=== PATIENT | female | born 1995 | race Caucasian/White ===

== ENCOUNTER 2023-09-26 18:47 | Emergency (ER) | payer MEDICAID, SELFPAY ==
[2023-09-26 18:54] VITALS: BP 142/105; PULSE 98; RESP 16; TEMP 36.5; O2SAT 99; BMI 36.1
--- NOTE | 2023-09-26 19:07 | ED.GENADUL1 ---
HPI - General Adult General Chief complaint: Skin/Abscess/Foreign Body Stated complaint: RASH Time Seen by Provider: 09/26/23 18:49 Source: patient Mode of arrival: walk-in Limitations: no limitations History of Present Illness HPI narrative: patient is a 28-year-old female who presents to the emergency department for a rash under the bilateral breasts, groin and in her stomach folds. She states the rash is itchy and irritated. She believes she may have a piece infection. Rash has been present for several days. There has been no drainage. no medications taken prior to arrival. She is not concerned for . Related Data Previous Rx's Medication Instructions Recorded hydroxyzine HCl 25 mg tablet 25 mg PO Q6H PRN itching #20 tabs 09/26/23 nystatin-triamcinolone 100,000 1 applic topical BID #60 grams 09/26/23 unit/g-0.1 % topical cream Allergies Allergy/AdvReac Type Severity Reaction Status Date / Time No Known Drug Allergies Allergy Verified 09/26/23 18:58 Review of Systems ROS Constitutional Denies: fever or chills Ears, nose, mouth, and throat Denies: throat pain Cardiovascular Denies: chest pain Respiratory Denies: shortness of breath Gastrointestinal Denies: abdominal pain, nausea or vomiting Musculoskeletal Denies: back pain Integumentary/Breast Reports: rash and itching Hematologic/Lymphatic Denies: easy bruising Allergic/Immunologic Denies: hives PFSH [facility] Social History Smoking status: Never smoker Exam Narrative Exam Narrative: Gen.: Awake, alert, in no distress Head: Normocephalic, atraumatic ENT: Moist mucous membranes Respiratory: No respiratory distress Extremities: Moves extremities equally Psych: Normal mood and affect Neuro: No focal neuro deficit Skin: Warm, dry, intact; faintly erythematous rash noted under the bilateral breasts and in the fold of the stomach as well as the bilateral groin. No open wounds or drainage. No red streaking. No petechiae or purpura. No mucous membrane involvement. Constitutional Vital Signs, click to edit/add: Last Vital Signs Temp 97.7 F 09/26/23 18:54 Pulse 98 H 09/26/23 18:54 Resp 16 09/26/23 18:54 BP 142/105 H 09/26/23 18:54 Pulse Ox 99 09/26/23 18:54 O2 Del Method Room Air 09/26/23 18:54 Course Vital Signs Vital signs: Vital Signs Temperature 97.7 F 09/26/23 18:54 Pulse Rate 98 H 09/26/23 18:54 Respiratory Rate 16 09/26/23 18:54 Blood Pressure 142/105 H 09/26/23 18:54 Pulse Oximetry 99 09/26/23 18:54 Oxygen Delivery Method Room Air 09/26/23 18:54 Temperature 97.7 F 09/26/23 18:54 Pulse Rate 98 H 09/26/23 18:54 Respiratory Rate 16 09/26/23 18:54 Blood Pressure 142/105 H 09/26/23 18:54 Pulse Oximetry 99 09/26/23 18:54 Oxygen Delivery Method Room Air 09/26/23 18:54 Medical Decision Making MDM Narrative Medical decision making narrative: patient treated with hydroxyzine for itching and Mycolog for suspected skin yeast infection. no evidence of secondary cellulitis or wound infection at this time. Follow-up with PCP and return to the Emergency Room if symptoms change or worsen Medical Records Medical records reviewed: Yes I reviewed the patient's medical records Discharge Plan Discharge Chief Complaint: Skin/Abscess/Foreign Body Clinical Impression: Tinea, Skin rash Patient Disposition: Home, Self-Care Time of Disposition Decision: 19:05 Condition: Good Prescriptions / Home Meds: New nystatin-triamcinolone 100,000-0.1 unit/g-% cream 1 applic topical BID Qty: 60 0RF hydroxyzine HCl 25 mg tablet 25 mg PO Q6H PRN (Reason: itching) Qty: 20 0RF Instructions: Acute Rash (ED), Skin Yeast Infection (ED) Stand Alone Forms: Portal Instructions Referrals: Physician,Non-Staff, MD [Primary Care Provider] - 1 week Discharge Date/Time: 09/26/23 19:22
== END 2023-09-26 19:22 | disposition home or self-care (01) ==
PROVIDERS: Emergency Provider Internal Medicine
DX: B35.9 Dermatophytosis, unspecified (principal); R21 Rash and other nonspecific skin eruption
CPT/HCPCS: 99283

== ENCOUNTER 2024-01-24 17:56 | Emergency (ER) | payer MEDICAID, SELFPAY ==
[2024-01-24 18:01] VITALS: BP 169/99; PULSE 96; RESP 12; TEMP 36.6; O2SAT 99; BMI 37.4
--- NOTE | 2024-01-24 18:09 | US_ITS ---
[address] [address] Patient Name: LINA BAHENA MRN: [id number] date: 1995 Sex: F Assigned Patient Location: ER Current Patient Location: Accession/Order Number: [id number] Exam Date: 01/24/2024 18:40 Report Date: 01/24/2024 20:54 At the request of: JLUIS RUIZ Procedure: US OB transvaginal US PELVIS: OB LESS THAN 14 WEEKS HISTORY: G 3 P 2 AB 0 28 year old female presents for US evaluation. Cramping for 3 days unsure of LMP positive test last week was on control pills TECHNIQUE: Multiple sonographic images are performed of the pelvis using grayscale, spectral and color Doppler with both transabdominal and transvaginal probes. COMPARISON: None. FINDINGS: Cervix: Closed. 3.9 cm. Gestational Sac: Present in endometrium. 1.5 cm, 5 weeks, 6 days. Gestational sac size and shape are within normal limits for the estimated gestational age. Amniotic fluid: Within normal limits for gestational age. Placenta: Due to early gestational age, the placenta cannot be adequately seen on this exam. Yolk Sac: Visualized. 2.4 mm Pole: Visualized. 0.39 cm 6 weeks 1 day CRL: 0.43 cm, 6 weeks, 1 days. Heart Rate: 107 bpm. Subchorionic Bleed: None. Maternal: Ovaries: Right ovary: Measures 3.5 x 2.0 x 2.5 cm. Left ovary: Measures 4.0 x 1.3 x 2.2 cm. Free fluid: None. US/US OB transvaginal IMPRESSION: 1. Viable Cassidy fetus IUP 2. AUA Estimated Gestational Age by US: 6 weeks 0 days by ultrasound. 0 weeks 3 days 3. Estimated due date by AUA: September 18, 2024. Electronically authenticated by: EMELY CLAUDIO Date: 01/24/2024 20:54
[2024-01-24 18:46] LABS: Basophils Absolute Auto 0.1 10^3/uL (0.0-0.1); Eosinophils Absolute Auto 0.2 10^3/uL (0.0-0.7); Eosinophils Percent Auto 1.9 % (0.9-7.0); Hematocrit 41.3 % (36.0-48.0); Hemoglobin 13.6 g/dL (12.0-16.0); Immature Granulocytes Abs Auto 0.04 10^3/uL (0.00-0.03); Immature Granulocytes Pct Auto 0.4 % (0.0-0.5); Lymphocytes Absolute Auto 2.8 10^3/uL (1.2-3.8); Lymphocytes Percent Auto 27.1 % (20.5-60.0); Mean Corpuscular HGB Conc 32.9 g/dL (29.9-35.2); Mean Corpuscular Volume 85.2 fL (81.0-99.0); Mean Platelet Volume 9.3 fL (9.5-13.5); Monocytes Absolute Auto 0.9 10^3/uL (0.3-0.8); Monocytes Percent Auto 8.4 % (1.7-12.0); Neutrophils Absolute Auto 6.4 10^3/uL (1.4-6.5); Neutrophils Percent Auto 61.2 % (43.0-75.0); Platelet Count 284 10^3/uL (150-450); Red Blood Count 4.85 10^6/uL (4.20-5.40); Red Cell Distribution Width 13.2 % (11.0-15.0); White Blood Count 10.5 10^3/uL (4.0-11.0)
[2024-01-24 19:21] LABS: HCG Quantitative 18528 mIU/mL
--- NOTE | 2024-01-24 20:45 | ED.PREGNANC1 ---
HPI - General Chief complaint: Vaginal Bleeding Stated complaint: VAGINAL BLEEDING Time Seen by Provider: 01/24/24 18:08 Source: patient Mode of arrival: walk-in Limitations: no limitations History of Present Illness HPI Narrative: Patient is a 28-year-old who presents to the emergency department for evaluation of brownish bloody discharge and cramping for the last several days. She states yesterday she developed mild spotting and cramping. No fevers or vomiting. She does not know how far along she may be, she states she found out she was 2 weeks ago by test which she has a history of irregular periods. She had no similar issues with her previous pregnancies. No medications taken prior to arrival. Related Data Previous Rx's Medication Instructions Recorded metoclopramide HCl 10 mg tablet 10 mg PO Q6H PRN nausea and 01/24/24 (Reglan) vomiting #12 tabs Allergies Allergy/AdvReac Type Severity Reaction Status Date / Time No Known Drug Allergies Allergy Verified 01/24/24 18:00 Review of Systems ROS Constitutional Denies: fever or chills Ears, nose, mouth, and throat Denies: throat pain or nasal congestion Respiratory Denies: shortness of breath Gastrointestinal Denies: nausea or vomiting Musculoskeletal Denies: back pain Integumentary/Breast Denies: rash Neurological Denies: headache Hematologic/Lymphatic Denies: easy bruising or easy bleeding PFSH PFSH Social History Smoking status: Never smoker Exam Narrative Exam Narrative: Gen.: Awake, alert, in no distress Head: Normocephalic, atraumatic ENT: Moist mucous membranes Respiratory: No respiratory distress Gastrointestinal: Abdomen is soft, nondistended and nontender to palpation Extremities: Moves extremities equally Psych: Normal mood and affect Neuro: No focal neuro deficit Skin: Warm, dry, intact Constitutional Vital Signs, click to edit/add: Last Vital Signs Temp 98 F 01/24/24 18:01 Pulse 96 H 01/24/24 18:01 Resp 12 01/24/24 18:01 BP 169/99 H 01/24/24 18:01 Pulse Ox 99 01/24/24 18:01 O2 Del Method Room Air 01/24/24 18:01 Course Vital Signs Vital signs: Vital Signs Temperature 98 F 01/24/24 18:01 Pulse Rate 96 H 01/24/24 18:01 Respiratory Rate 12 01/24/24 18:01 Blood Pressure 169/99 H 01/24/24 18:01 Pulse Oximetry 99 01/24/24 18:01 Oxygen Delivery Method Room Air 01/24/24 18:01 Temperature 98 F 01/24/24 18:01 Pulse Rate 96 H 01/24/24 18:01 Respiratory Rate 12 01/24/24 18:01 Blood Pressure 169/99 H 01/24/24 18:01 Pulse Oximetry 99 01/24/24 18:01 Oxygen Delivery Method Room Air 01/24/24 18:01 MDM - OB/Uterine Contractions MDM Narrative Medical decision making narrative: Patient with abdomen soft and benign, O+ blood type and quantitative hCG level 18,000. She was sent for ultrasound which shows an intrauterine gestation at 6 weeks with heart rate, no evidence of ectopic. Patient discharged home with instructions for pelvic rest to follow-up with [facility] office for repeat testing. Return to the ER if symptoms change or worsen. She was given a prescription of Reglan as needed for nausea, Tylenol as needed for pain. Medical Records Attestation: I reviewed the patient's medical records. Lab Data Attestation: I reviewed the patient's lab results. Labs: Lab Results 01/24/24 Range/Units 18:33 WBC 10.5 (4.0-11.0) 10^3/uL RBC 4.85 (4.20-5.40) 10^6/uL Hgb 13.6 (12.0-16.0) g/dL Hct 41.3 (36.0-48.0) % MCV 85.2 (81.0-99.0) fL MCH 28.0 (26.7-34.0) pg MCHC 32.9 (29.9-35.2) g/dL RDW 13.2 (11.0-15.0) % Plt Count 284 (150-450) 10^3/uL MPV 9.3 L (9.5-13.5) fL Neut % (Auto) 61.2 (43.0-75.0) % Lymph % (Auto) 27.1 (20.5-60.0) % [place] % (Auto) 8.4 (1.7-12.0) % Eos % (Auto) 1.9 (0.9-7.0) % Baso % (Auto) 1.0 (0.2-2.0) % Neut # (Auto) 6.4 (1.4-6.5) 10^3/uL Lymph # (Auto) 2.8 (1.2-3.8) 10^3/uL [place] # (Auto) 0.9 H (0.3-0.8) 10^3/uL Eos # (Auto) 0.2 (0.0-0.7) 10^3/uL Baso # (Auto) 0.1 (0.0-0.1) 10^3/uL Abs Immat Gran (auto) 0.04 H (0.00-0.03) 10^3/uL Imm/Tot Granulo (auto) 0.4 (0.0-0.5) % HCG, Quant 72396 mIU/mL Blood Type O Positive Imaging Data US - abdomen: Attestation: I have reviewed the pertinent imaging results. Radiologist's impression: ITS Impressions Transvaginal US 01/24/24 18:09 IMPRESSION: 1. Viable Cassidy fetus IUP 2. AUA Estimated Gestational Age by US: 6 weeks 0 days by ultrasound. 0 weeks 3 days 3. Estimated due date by AUA: September 18, 2024. Electronically authenticated by: EMELY CLAUDIO Date: 01/24/2024 20:54 Discharge Plan Discharge Chief Complaint: Vaginal Bleeding Clinical Impression: Threatened Patient Disposition: Home, Self-Care Time of Disposition Decision: 20:46 Condition: Good Prescriptions / Home Meds: New metoclopramide HCl [Reglan] 10 mg tablet 10 mg PO Q6H PRN (Reason: nausea and vomiting) Qty: 12 0RF Instructions: Threatened Miscarriage (ED) Referrals: Kentrell Sarabia DO [Physician] - 1 week MIREILLE RICHMOND [Primary Care Provider] - 1 week Discharge Date/Time: 01/24/24 20:56 Stand Alone Forms: Portal Instructions
== END 2024-01-24 20:56 | disposition home or self-care (01) ==
PROVIDERS: Physician Assistant; Emergency Provider Student in an Organized Health Care Education/Training Program; PCP Family Medicine
DX: O20.0 Threatened abortion (principal); Z3A.01 Less than 8 weeks gestation of pregnancy
CPT/HCPCS: 36415; 76817; 84702; 85025; 86900; 86901; 99285

== ENCOUNTER 2024-02-09 14:06 | Outpatient (OUT) | payer MEDICAID, SELFPAY ==
--- NOTE | 2024-02-09 14:08 | US_ITS ---
[address] [address] Patient Name: LINA BAHENA MRN: [id number] date: 1995 Sex: F Assigned Patient Location: [facility] Current Patient Location: [facility] Accession/Order Number: [id number] Exam Date: 02/09/2024 14:08 Report Date: 02/09/2024 14:57 At the request of: JAMIL CHAUHAN Procedure: US OB transvaginal EXAMINATION: US OB transvaginal HISTORY: MISSED MENSES COMPARISON: FINDINGS: GESTATIONAL SAC: Present and normal appearing. YOLK SAC: Present and normal appearing. POLE: Present and normal appearing. CARDIAC: Present. UTERUS: Normal size and appearance. OVARIES: Right: Normal. Left: Normal. CERVIX: 4.2 cm in length and closed. CUL-DE-SAC: Normal. OTHER: None. AGE BY LMP: Unknown LMP SANTIAGO BY LMP: AGE BY US CRL: 8 weeks 1 day SANTIAGO BY US CRL: 09/19/2024 US/US OB transvaginal IMPRESSION: 1. Single live intrauterine 8 weeks 1 day by today's ultrasound. Electronically authenticated by: ALEA MENDOZA Date: 02/09/2024 14:57
--- OUTSIDE RECORDS SUMMARY | 2024-02-09 14:13 | XMS_ITS | CCD ---
Author Organization [facility] Care Team Providers Care Medical Illustrator Name Role Phone JAMIL CHAUHAN Attending Unavailable Encounters Encounter Date Encounter Type Care Provider Facility Start: 01-31-2024 End: 01-31-2024 ambulatory JAMIL CHAUHAN Not Available Payers Date Payer Category Payer Medicaid [id number] 1995 Unknown [id number] [id number] Summary Purpose Family History No Family History Records Found Advance Directives No Advanced Directives Records Found Additional Source Comments INFORMATION SOURCE (unrecogn ized section and content) DATE CREATED AUTHOR 02/01/2024 [facility] EPIC FOR RECORDS PERTAINING TO PATIENTS WHO ARE OR HAVE BEEN ENROLLED IN A CHEMICAL DEPENDENCY/SUBSTANCEABUSE PROGRAM, SOME INFORMATION MAY BE OMITTED. This clinical summary was aggregated from multiple sources. Caution should be exercised in using it in the provision of clinical care. This summary normalizes information from multiple sources, and as a consequence, information in this document may materially change the coding, format and clinical context of patient data. In addition, data may be omitted in some cases. CLINICAL DECISIONS SHOULD BE BASED ON THE PRIMARY CLINICAL RECORDS. [employer] provides no warranty or guarantee of the accuracy or completeness of information in this document.
== END 2024-02-09 14:07 | disposition home or self-care (01) ==
LOC: NOMS 14:07
PROVIDERS: PCP Family Medicine; Visit Provider Obstetrics & Gynecology
DX: Z34.91 Encounter for supervision of normal pregnancy, unspecified, first trimester (principal)
CPT/HCPCS: 76817

== ENCOUNTER 2024-02-24 09:18 | Outpatient (OUT) | payer MEDICAID, SELFPAY ==
--- OUTSIDE RECORDS SUMMARY | 2024-02-24 09:40 | XMS_ITS | CCD ---
Author Organization [facility] Care Team Providers Care Operating Room Registered Nurse Name Role Phone JAMIL CHAUHAN Attending Unavailable Encounters Encounter Date Encounter Type Care Provider Facility Start: 02-09-2024 End: 02-09-2024 ambulatory JAMIL TIEN Not Available Start: 01-31-2024 End: 01-31-2024 ambulatory JAMIL TIEN Not Available Payers Date Payer Category Payer Medicaid [id number] 1995 Unknown [id number] 2.16.84 [id number] 1995 Unknown [id number] 2.16.84 [id number] Summary Purpose Family History No Family History Records Found Advance Directives No Advanced Directives Records Found Additional Source Comments INFORMATION SOURCE (unrecogn ized section and content) DATE CREATED AUTHOR 02/11/2024 [facility] EPIC FOR RECORDS PERTAINING TO PATIENTS [...] BE BASED ON THE PRIMARY CLINICAL RECORDS. [employer] provides no warranty or guarantee of the accuracy or completeness of information in this document.
[2024-02-24 10:03] LABS: Basophils Absolute Auto 0.1 10^3/uL (0.0-0.1); Basophils Percent Auto 0.8 % (0.2-2.0); Eosinophils Absolute Auto 0.1 10^3/uL (0.0-0.7); Eosinophils Percent Auto 1.2 % (0.9-7.0); Hematocrit 40.3 % (36.0-48.0); Hemoglobin 13.5 g/dL (12.0-16.0); Immature Granulocytes Abs Auto 0.03 10^3/uL (0.00-0.03); Immature Granulocytes Pct Auto 0.3 % (0.0-0.5); Lymphocytes Percent Auto 20.9 % (20.5-60.0); Mean Corpuscular HGB Conc 33.5 g/dL (29.9-35.2); Mean Corpuscular Hemoglobin 28.2 pg (26.7-34.0); Mean Corpuscular Volume 84.3 fL (81.0-99.0); Mean Platelet Volume 9.2 fL (9.5-13.5); Monocytes Absolute Auto 0.6 10^3/uL (0.3-0.8); Monocytes Percent Auto 6.8 % (1.7-12.0); Neutrophils Absolute Auto 6.6 10^3/uL (1.4-6.5); Platelet Count 302 10^3/uL (150-450); Red Blood Count 4.78 10^6/uL (4.20-5.40); Red Cell Distribution Width 12.8 % (11.0-15.0); White Blood Count 9.5 10^3/uL (4.0-11.0)
[2024-02-24 12:08] LABS: Thyroid Stimulating Hormone 3.238 uIU/mL (0.358-3.740)
[2024-02-24 12:09] LABS: Estimated Average Glucose 103 mg/dL; Glycohemoglobin A1C 5.2 % (4.5-6.2)
[2024-02-25 06:09] LABS: HBsAg Screen Negative (Negative); HCV Ab Non Reactive (Non Reactive); HIV Ab/p24 Ag Screen Non Reactive (Non Reactive); Rubella Antibodies, IgG 1.28 index (Immune >0.99)
[2024-02-25 12:08] LABS: Rapid Plasma Reagin, Quant Non Reactive titer (NonRea<1:1)
== END 2024-02-24 09:19 | disposition home or self-care (01) ==
LOC: LAB 09:23
PROVIDERS: PCP Family Medicine; Visit Provider Obstetrics & Gynecology
DX: N92.6 Irregular menstruation, unspecified (principal); Z36.0 Encounter for antenatal screening for chromosomal anomalies
CPT/HCPCS: 36415; 83036; 84443; 85025; 86592; 86762; 86803; 86850; 86900; 86901; 87086; 87340; 87389

== ENCOUNTER 2024-04-24 08:35 | Outpatient (OUT) | payer MEDICAID, SELFPAY ==
--- OUTSIDE RECORDS SUMMARY | 2024-04-24 08:53 | XMS_ITS | CCD ---
Author Organization [facility] Care Team Providers Care Grounding Engineer Name Role Phone JAMIL CHAUHAN Attending Unavailable JAMIL CHAUHAN Attending Unavailable LORRIE RG Attending Unavailable Encounters Encounter Date Encounter Type Care Provider Facility Start: 04-04-2024 End: 04-04-2024 ambulatory LORRIE RG Not Available Start: 03-15-2024 End: 03-15-2024 ambulatory JAMIL CHAUHAN Not Available Start: 02-09-2024 End: 02-09-2024 ambulatory JAMIL TIEN Not Available Start: 01-31-2024 End: 01-31-2024 ambulatory JAMIL TIEN Not Available Payers Date Payer Category Payer Medicaid [id number] 1995 Unknown [id number] 2.16.84 [id number] 1995 Unknown [id number] 2.16.84 [id number] 1995 Unknown [id number] 2.16.84 [id number] 1995 Unknown [id number] 2.16.84 [id number] Summary Purpose Family History No Family History Records Found Advance Directives No Advanced Directives Records Found Additional Source Comments INFORMATION SOURCE (unrecogn ized section and content) DATE CREATED AUTHOR 04/06/2024 [facility] EPIC FOR RECORDS PERTAINING TO PATIENTS [...] BE BASED ON THE PRIMARY CLINICAL RECORDS. [facility] [employer] [facility]. provides no warranty or guarantee of the accuracy or completeness of information in this document.
[2024-04-26 02:08] LABS: AFP Value 47.6 ng/mL (.); Gestat. Age Based On Ultrasound (.); Insulin Dep Diabetes No (.); Maternal Age At EDD 27.9 yr (.); OSBR Risk 1 IN 6301 (.); Results Report (.)
== END 2024-04-24 08:36 | disposition home or self-care (01) ==
LOC: LAB 08:36
PROVIDERS: PCP Family Medicine; Visit Provider Obstetrics & Gynecology
DX: Z34.92 Encounter for supervision of normal pregnancy, unspecified, second trimester (principal)
CPT/HCPCS: 36415; 82105

== ENCOUNTER 2024-05-02 13:29 | Outpatient (OUT) | payer MEDICAID, SELFPAY ==
--- NOTE | 2024-05-02 13:35 | US_ITS ---
[address] [address] Patient Name: LINA BAHENA MRN: [id number] date: 1995 Sex: F Assigned Patient Location: [facility] Current Patient Location: [facility] Accession/Order Number: [id number] Exam Date: 05/02/2024 13:36 Report Date: 05/02/2024 14:38 At the request of: LORRIE RG Procedure: US OB anatomy EXAMINATION: US OB anatomy, US OB cervical length HISTORY: ANATOMY COMPARISON: No relevant comparison available. TECHNIQUE: Transabdominal sonographic examination was performed for obstetrical and evaluation. FINDINGS: Number: 1 Heart Rate: 155.0 bpm H.B. /min Amniotic Fluid Volume: Subjectively normal position: Cephalic presentation, longitudinal lie Placental Location: Posterior. The placental edge is 0.6 cm from the internal os Cervix Length: 5.4 cm , closed Normal anatomy: Lateral ventricles, cerebellum, posterior fossa, nose, lips, orbits, four-chamber heart, RVOT, LVOT, diaphragm, stomach, kidneys, abdominal insertion, bladder, umbilical arteries, three-vessel cord, spine, extremities BIOMETRY: BPD: 4.5 cm 19 weeks 5 days , 38% HC: 17.1 cm 19 weeks 5 days, 29% AC: 17.3 cm 22 weeks 2 days, 96% FL: 3.2 cm 20 weeks 0 days, 41% EFW:391.5 grams; 14 ounces, 93% FL/AC: 18.5 FL/BPD: 70.5 HC/AC: 1.0 GESTATIONAL AGE: Age by EDC: 20 weeks 0 days SANTIAGO by EDC: 09/19/2024 Age by current US: 20 weeks 3 days SANTIAGO by current US: 09/16/2024 US/US OB anatomy IMPRESSION: Marginal placenta previa Otherwise normal anatomy scan *Reference: [facility] Practice Guideline for the performance of Obstetric Ultrasound Examinations, August 21, 2007. Electronically authenticated by: NIGHAT BOND Date: 05/02/2024 14:38
--- NOTE | 2024-05-02 13:35 | US_ITS ---
[address] [address] Patient Name: LINA BAHENA MRN: [id number] date: 1995 Sex: F Assigned Patient Location: [facility] Current Patient Location: [facility] Accession/Order Number: [id number] Exam Date: 05/02/2024 13:35 Report Date: 05/02/2024 14:38 At the request of: LORRIE RG Procedure: US OB cervical length EXAMINATION: US OB anatomy, US OB cervical length HISTORY: ANATOMY COMPARISON: No relevant comparison available. TECHNIQUE: Transabdominal sonographic examination was performed for obstetrical and evaluation. FINDINGS: Number: 1 Heart Rate: 155.0 bpm H.B. /min Amniotic Fluid Volume: Subjectively normal position: Cephalic presentation, longitudinal lie Placental Location: Posterior. The placental edge is 0.6 cm from the internal os Cervix Length: 5.4 cm , closed Normal anatomy: Lateral ventricles, cerebellum, posterior fossa, nose, lips, orbits, four-chamber heart, RVOT, LVOT, diaphragm, stomach, kidneys, abdominal insertion, bladder, umbilical arteries, three-vessel cord, spine, extremities BIOMETRY: BPD: 4.5 cm 19 weeks 5 days , 38% HC: 17.1 cm 19 weeks 5 days, 29% AC: 17.3 cm 22 weeks 2 days, 96% FL: 3.2 cm 20 weeks 0 days, 41% EFW:391.5 grams; 14 ounces, 93% FL/AC: 18.5 FL/BPD: 70.5 HC/AC: 1.0 GESTATIONAL AGE: Age by EDC: 20 weeks 0 days SANTIAGO by EDC: 09/19/2024 Age by current US: 20 weeks 3 days SANTIAGO by current US: 09/16/2024 US/US OB cervical length IMPRESSION: Marginal placenta previa Otherwise normal anatomy scan *Reference: [facility] Practice Guideline for the performance of Obstetric Ultrasound Examinations, August 21, 2007. Electronically authenticated by: NIGHAT BOND Date: 05/02/2024 14:38
== END 2024-05-02 13:30 | disposition home or self-care (01) ==
LOC: NOMS 13:33
PROVIDERS: PCP Family Medicine; Visit Provider Physician Assistant
DX: Z36.89 Encounter for other specified antenatal screening (principal); Z3A.20 20 weeks gestation of pregnancy; O44.22 Partial placenta previa NOS or without hemorrhage, second trimester
CPT/HCPCS: 76805; 76817

== ENCOUNTER 2024-05-30 07:59 | Outpatient (OUT) | payer MEDICAID, SELFPAY ==
--- NOTE | 2024-05-30 08:03 | US_ITS ---
[address] [address] Patient Name: LINA BAHENA MRN: [id number] date: 1995 Sex: F Assigned Patient Location: [facility] Current Patient Location: [facility] Accession/Order Number: [id number] Exam Date: 05/30/2024 08:04 Report Date: 05/30/2024 09:28 At the request of: JAMIL CHAUHAN Procedure: US OB cervical length EXAM: US OB placenta, US OB cervical length HISTORY: MARGINAL PLACENTA PREVIA COMPARISON: None. TECHNIQUE: Transabdominal FINDINGS: position: Breech presentation, longitudinal lie Placenta: Posterior. The placental edge is 4 cm from the internal os. No intraplacental or retroplacental echogenic abnormality Cervix: Closed, 3.9 cm US/US OB cervical length IMPRESSION: The placental edge is 4 cm from the internal os Closed cervix measuring 3.9 cm in length Electronically authenticated by: NIGHAT BOND Date: 05/30/2024 09:28
--- NOTE | 2024-05-30 08:03 | US_ITS ---
[place] [id number] Patient Name: LINA BAHENA MRN: [id number] date: 1995 Sex: F Assigned Patient Location: [facility] Current Patient Location: [facility] Accession/Order Number: [id number] Exam Date: 05/30/2024 08:04 Report Date: 05/30/2024 09:28 At the request of: JAMIL CHAUHAN Procedure: US OB placenta EXAM: US OB placenta, US OB cervical length HISTORY: MARGINAL PLACENTA PREVIA COMPARISON: None. TECHNIQUE: Transabdominal FINDINGS: position: Breech presentation, longitudinal lie Placenta: Posterior. The placental edge is 4 cm from the internal os. No intraplacental or retroplacental echogenic abnormality Cervix: Closed, 3.9 cm US/US OB placenta IMPRESSION: The placental edge is 4 cm from the internal os Closed cervix measuring 3.9 cm in length Electronically authenticated by: NIGHAT BOND Date: 05/30/2024 09:28
== END 2024-05-30 08:00 | disposition home or self-care (01) ==
LOC: NOMS 07:59
PROVIDERS: PCP Family Medicine; Visit Provider Obstetrics & Gynecology
DX: O44.20 Partial placenta previa NOS or without hemorrhage, unspecified trimester (principal); Z3A.00 Weeks of gestation of pregnancy not specified
CPT/HCPCS: 76815; 76817

== ENCOUNTER 2024-06-11 14:12 | Outpatient (OUT) | payer MEDICAID, SELFPAY ==
--- OUTSIDE RECORDS SUMMARY | 2024-06-11 14:33 | XMS_ITS | CCD ---
Author Organization [facility] Care Team Providers Care Interlocking Installer Name Role Phone JAMIL CHAUHAN Attending Unavailable TIEN, JAMIL Attending Unavailable ARCENIOLORRIE Attending Unavailable TIEN, JAMIL Attending Unavailable Encounters Encounter Date Encounter Type Care Provider Facility Start: 05-07-2024 End: 05-07-2024 ambulatory JAMIL TIEN Not Available Start: 04-04-2024 End: 04-04-2024 ambulatory LORRIE RG Not Available Start: 03-15-2024 End: 03-15-2024 ambulatory JAMIL TIEN Not Available Start: 02-09-2024 End: 02-09-2024 ambulatory JAMIL TIEN Not Available Start: 01-31-2024 End: 01-31-2024 ambulatory JAMIL TIEN Not Available Payers Date Payer Category Payer Medicaid [birth year] Unknown [id number] 2.16.84 [id number] 1995 Unknown [id number] 2.16.84 [id number] 1995 Unknown [id number] 2.16.84 [id number] 1995 Unknown [id number] 2.16.84 [id number] 1995 Unknown [id number] 2.16.84 [id number] Summary Purpose Family History No Family History Records Found Advance Directives No Advanced Directives Records Found Additional Source Comments INFORMATION SOURCE (unrecogn ized section and content) DATE CREATED AUTHOR 05/07/2024 [facility] dical Specialists EPIC FOR RECORDS PERTAINING TO PATIENTS [...] BE BASED ON THE PRIMARY CLINICAL RECORDS. [facility]. provides no warranty or guarantee of the accuracy or completeness of information in this document.
[2024-06-11 14:44] LABS: Basophils Absolute Auto 0.1 10^3/uL (0.0-0.1); Basophils Percent Auto 0.6 % (0.2-2.0); Eosinophils Absolute Auto 0.2 10^3/uL (0.0-0.7); Eosinophils Percent Auto 1.2 % (0.9-7.0); Hemoglobin 11.8 g/dL (12.0-16.0); Immature Granulocytes Abs Auto 0.09 10^3/uL (0.00-0.03); Immature Granulocytes Pct Auto 0.7 % (0.0-0.5); Lymphocytes Percent Auto 15.4 % (20.5-60.0); Mean Corpuscular HGB Conc 33.7 g/dL (29.9-35.2); Mean Corpuscular Hemoglobin 28.8 pg (26.7-34.0); Mean Corpuscular Volume 85.4 fL (81.0-99.0); Mean Platelet Volume 9.2 fL (9.5-13.5); Monocytes Percent Auto 7.8 % (1.7-12.0); Neutrophils Absolute Auto 9.4 10^3/uL (1.4-6.5); Neutrophils Percent Auto 74.3 % (43.0-75.0); Platelet Count 300 10^3/uL (150-450); Red Cell Distribution Width 13.2 % (11.0-15.0); White Blood Count 12.7 10^3/uL (4.0-11.0)
[2024-06-11 15:02] LABS: Alanine Aminotransferase 18 U/L (14-59); Albumin Globulin Ratio 0.6; Albumin Level 2.5 g/dL (3.4-5.0); Alkaline Phosphatase 88 U/L (46-116); Aspartate Amino Transferase 15 U/L (15-37); Bilirubin Direct 0.1 mg/dL (0.0-0.2); Bilirubin Total 0.4 mg/dL (0.2-1.0); Globulin 3.9 g/dL; Thyroid Stimulating Hormone 3.363 uIU/mL (0.358-3.740); Total Protein 6.4 g/dL (6.4-8.2)
[2024-06-12 05:07] LABS: HCV Antibody Non Reactive (Non Reactive)
[2024-06-13 16:10] LABS: Bile Acids 2.7 umol/L (0.0-10.0)
== END 2024-06-11 14:13 | disposition home or self-care (01) ==
LOC: LAB 14:14
PROVIDERS: PCP Family Medicine; Visit Provider Physician Assistant
DX: L29.9 Pruritus, unspecified (principal)
CPT/HCPCS: 36415; 80076; 82239; 84443; 85025; 86803

== ENCOUNTER 2024-06-12 12:53 | Outpatient (OUT) | payer MEDICAID, SELFPAY ==
[2024-06-12 09:03] LABS: Basophils Absolute Auto 0.1 10^3/uL (0.0-0.1); Basophils Percent Auto 0.6 % (0.2-2.0); Eosinophils Absolute Auto 0.2 10^3/uL (0.0-0.7); Eosinophils Percent Auto 1.4 % (0.9-7.0); Hemoglobin 11.7 g/dL (12.0-16.0); Immature Granulocytes Abs Auto 0.09 10^3/uL (0.00-0.03); Immature Granulocytes Pct Auto 0.9 % (0.0-0.5); Lymphocytes Absolute Auto 1.6 10^3/uL (1.2-3.8); Lymphocytes Percent Auto 15.1 % (20.5-60.0); Mean Corpuscular HGB Conc 33.4 g/dL (29.9-35.2); Mean Corpuscular Hemoglobin 28.6 pg (26.7-34.0); Mean Corpuscular Volume 85.6 fL (81.0-99.0); Mean Platelet Volume 9.3 fL (9.5-13.5); Monocytes Absolute Auto 0.6 10^3/uL (0.3-0.8); Monocytes Percent Auto 5.2 % (1.7-12.0); Neutrophils Absolute Auto 8.1 10^3/uL (1.4-6.5); Neutrophils Percent Auto 76.8 % (43.0-75.0); Platelet Count 279 10^3/uL (150-450); Red Blood Count 4.09 10^6/uL (4.20-5.40); Red Cell Distribution Width 13.1 % (11.0-15.0); White Blood Count 10.5 10^3/uL (4.0-11.0)
[2024-06-12 09:24] LABS: Glucose 1 Hour 140 mg/dL (<130)
== END 2024-06-12 12:54 | disposition home or self-care (01) ==
LOC: LAB 06-13 12:53
PROVIDERS: PCP Family Medicine; Visit Provider Physician Assistant
DX: Z13.1 Encounter for screening for diabetes mellitus (principal); Z3A.25 25 weeks gestation of pregnancy
CPT/HCPCS: 36415; 82950; 85025

== ENCOUNTER 2024-06-27 08:13 | Outpatient (OUT) | payer MEDICAID, SELFPAY ==
--- OUTSIDE RECORDS SUMMARY | 2024-06-27 08:16 | XMS_ITS | CCD ---
Author Organization [facility] Care Team Providers Care Gameroom Technician Name Role Phone TIEN, JAMIL Attending Unavailable TIEN, JAMIL Attending Unavailable ARCENIO, LORRIE Attending Unavailable TIEN, JAMIL Attending Unavailable ARCENIO, LORRIE Attending Unavailable Encounters Encounter Date Encounter Type Care Provider Facility Start: 06-11-2024 End: 06-11-2024 ambulatory LORRIE ARCENIO Not Available Start: 05-07-2024 End: 05-07-2024 ambulatory JAMIL TIEN Not Available Start: 04-04-2024 End: 04-04-2024 ambulatory LORRIE ARCENIO Not Available Start: 03-15-2024 End: 03-15-2024 ambulatory JAMIL TIEN Not Available Start: 02-09-2024 End: 02-09-2024 ambulatory JAMIL TIEN Not Available Start: 01-31-2024 End: 01-31-2024 ambulatory JAMIL TIEN Not Available Payers Date Payer Category Payer Medicaid [id number] 1995 Unknown [id number] 2..84 [id number] 1995 Unknown [id number] 2.16.84 [id number] 1995 Unknown [id number] 2.16.84 [id number] 1996 Unknown [id number] 2.16.84 [id number] 1996 Unknown [id number] 2.16.84 [id number] 1995 Unknown [id number] 2.16.84 [id number] Summary Purpose Family History No Family History Records Found Advance Directives No Advanced Directives Records Found Additional Source Comments INFORMATION SOURCE (unrecogn ized section and content) DATE CREATED AUTHOR 06/13/2024 [facility] EPIC FOR RECORDS PERTAINING [...] BE BASED ON THE PRIMARY CLINICAL RECORDS. [facility] [employer] provides no warranty or guarantee of the accuracy or completeness of information in this document.
[2024-06-27 09:01] LABS: Glucose Fasting 89 mg/dL (<95)
[2024-06-27 10:03] LABS: Glucose 1 Hour 171 mg/dL (<180)
[2024-06-27 10:59] LABS: Glucose 2 Hour 126 mg/dL (<155)
[2024-06-27 12:29] LABS: Glucose 3 Hour 101 mg/dL (<140)
== END 2024-06-27 08:14 | disposition home or self-care (01) ==
LOC: LAB 08:13
PROVIDERS: PCP Family Medicine; Visit Provider Physician Assistant
DX: R73.09 Other abnormal glucose (principal)
CPT/HCPCS: 36415; 82951; 82952

== ENCOUNTER 2024-07-03 07:54 | Outpatient (OUT) | payer MEDICAID, SELFPAY ==
--- NOTE | 2024-07-03 07:57 | US_ITS ---
[address] [address] Patient Name: LINA BAHENA MRN: [id number] date: 1995 Sex: F Assigned Patient Location: [facility] Current Patient Location: [facility] Accession/Order Number: [id number] Exam Date: 07/03/2024 07:57 Report Date: 07/03/2024 10:24 At the request of: JAMIL CHAUHAN Procedure: US OB growth EXAMINATION: US OB growth HISTORY: LARGE FOR GESTATIONAL AGE COMPARISON: No relevant comparison available. TECHNIQUE: Transabdominal sonographic examination was performed for obstetrical and evaluation. FINDINGS: Number: 1 Heart Rate: 146 bpm H.B. /min Amniotic Fluid Volume: 11.7 cm, largest fluid pocket 3.5 cm position: Cephalic presentation, longitudinal lie BIOMETRY: BPD: 7.16 cm; 28 weeks 5 days; 33.80 % HC: 26.23 cm; 28 weeks 4 days; 11.80 % AC: 25.01 cm; 29 weeks 2 days; 54.70 % FL: 5.45 cm; 28 weeks 6 days; 33.10 % EFW:1306.16 g; 41.30 %, 2 lbs. 14 oz. FL/AC: 21.79 FL/BPD: 76.12 HC/AC: 1.05 GESTATIONAL AGE: Age by EDC: 28 weeks 6 days SANTIAGO by EDC: 2024-09-19 Age by current US: 28 weeks 6 days SANTIAGO by current US: 2024-09-19 US/US OB growth IMPRESSION: Normal interval growth *Reference: [facility] Practice Guideline for the performance of Obstetric Ultrasound Examinations, August 21, 2007. Electronically authenticated by: NIGHAT BOND Date: 07/03/2024 10:24
--- OUTSIDE RECORDS SUMMARY | 2024-07-03 07:58 | XMS_ITS | CCD ---
Author Organization [facility] Care Team Providers Care Quiller Operator Name Role Phone TIEN, JAMIL Attending Unavailable TIEN, JAMIL Attending Unavailable ARCENIO, LORRIE Attending Unavailable TIEN, JAMIL Attending Unavailable ARCENIO, LORRIE Attending Unavailable ARCENOI, LORRIE Attending Unavailable Encounters Encounter Date Encounter Type Care Provider Facility Start: 06-28-2024 End: 06-28-2024 ambulatory LORRIE ARCENIO Not Available Start: 06-11-2024 End: 06-11-2024 ambulatory LORRIE ARCENIO Not Available Start: 05-07-2024 End: 05-07-2024 ambulatory JAMIL TIEN Not Available Start: 04-04-2024 End: 04-04-2024 ambulatory LORRIE ARCENIO Not Available Start: 03-15-2024 End: 03-15-2024 ambulatory JAMIL TIEN Not Available Start: 02-09-2024 End: 02-09-2024 ambulatory JAMIL TIEN Not Available Start: 01-31-2024 End: 01-31-2024 ambulatory JAMIL TIEN Not Available Payers Date Payer Category Payer Medicaid [id number] 1995 Unknown [id number] 2.16.84 0.1.011734.3.579.2.9 1996 Unknown [id number] 2.16.84 0.1.543108.3.579.2.9 1996 Unknown [id number] 2.16.84 0.1.355244.3.579.2.9 1996 Unknown [id number] 2.16.84 0.1.638512.3.579.2.1259 1996 Unknown [id number] 2.16.84 0.1.391890.3.579.2.9 1996 Unknown [id number] 2.16.84 0.1.011907.3.579.2.1259 1996 Unknown [id number] 2.16.84 0.1.004625.3.579.2.1259 Summary Purpose Family History No Family History Records Found Advance Directives No Advanced Directives Records Found Additional Source Comments INFORMATION SOURCE (unrecogn ized section and content) DATE CREATED AUTHOR 07/01/2024 [facility] Specialists [facility] FOR RECORDS PERTAINING TO PATIENTS WHO ARE [...] BE BASED ON THE PRIMARY CLINICAL RECORDS. [facility] [employer] [facility]. provides no warranty or guarantee of the accuracy or completeness of information in this document.
== END 2024-07-03 07:55 | disposition home or self-care (01) ==
LOC: NOMS 07:55
PROVIDERS: PCP Family Medicine; Visit Provider Obstetrics & Gynecology
DX: O36.62X0 Maternal care for excessive fetal growth, second trimester, not applicable or unspecified (principal); Z3A.28 28 weeks gestation of pregnancy
CPT/HCPCS: 76816

== ENCOUNTER 2024-07-19 10:55 | Outpatient (OUT) | payer MEDICAID, SELFPAY ==
[2024-07-19 11:12] LABS: Basophils Absolute Auto 0.1 10^3/uL (0.0-0.1); Basophils Percent Auto 0.7 % (0.2-2.0); Eosinophils Absolute Auto 0.1 10^3/uL (0.0-0.7); Eosinophils Percent Auto 1.1 % (0.9-7.0); Hematocrit 33.8 % (36.0-48.0); Hemoglobin 11.3 g/dL (12.0-16.0); Immature Granulocytes Abs Auto 0.11 10^3/uL (0.00-0.03); Lymphocytes Absolute Auto 1.9 10^3/uL (1.2-3.8); Lymphocytes Percent Auto 17.5 % (20.5-60.0); Mean Corpuscular HGB Conc 33.4 g/dL (29.9-35.2); Mean Corpuscular Hemoglobin 28.1 pg (26.7-34.0); Mean Corpuscular Volume 84.1 fL (81.0-99.0); Mean Platelet Volume 9.3 fL (9.5-13.5); Monocytes Absolute Auto 0.9 10^3/uL (0.3-0.8); Monocytes Percent Auto 8.7 % (1.7-12.0); Neutrophils Absolute Auto 7.6 10^3/uL (1.4-6.5); Platelet Count 272 10^3/uL (150-450); Red Blood Count 4.02 10^6/uL (4.20-5.40); Red Cell Distribution Width 14.2 % (11.0-15.0); White Blood Count 10.7 10^3/uL (4.0-11.0)
--- OUTSIDE RECORDS SUMMARY | 2024-07-19 11:20 | XMS_ITS | CCD ---
Author Organization [facility] Care Team Providers Care Camp Counselor Name Role Phone TIEN, JAMIL Attending Unavailable TIEN, JAMIL Attending Unavailable ARCENIO, LORRIE Attending Unavailable TIEN, JAMIL Attending Unavailable ARCENIO, LORRIE Attending Unavailable ARCENIO, LORRIE Attending Unavailable TIEN, JAMIL Attending Unavailable Encounters Encounter Date Encounter Type Care Provider Facility Start: 07-03-2024 End: 07-03-2024 ambulatory JAMIL TIEN Not Available Start: 06-28-2024 End: 06-28-2024 ambulatory LORRIE ARCENIO [...] Available Payers Date Payer Category Payer Medicaid [id number] 1995 Unknown [id number] 2.16.84 0.1.290216.3.579.2.1258 1996 Unknown [id number] 2.16.84 0.1.270971.3.579.2.1258 1996 Unknown [id number] 2.16.84 0.1.939420.3.579.2.9 1996 Unknown [id number] 2.16.84 0.1.268747.3.579.2.9 1996 Unknown [id number] 2.16.84 0.1.883638.3.579.2.1259 1996 Unknown [id number] 2.16.84 0.1.130234.3.579.2.1259 1996 Unknown [id number] 2.16.84 0.1.978433.3.579.2.1259 1996 Unknown [id number] 2.16.84 0.1.526527.3.579.2.1259 Summary Purpose Family History No Family History Records Found Advance Directives No Advanced Directives Records Found Additional Source Comments INFORMATION SOURCE (unrecogn ized section and content) DATE CREATED AUTHOR 07/04/2024 [facility] Specialists EPIC FOR RECORDS PERTAINING TO [...] BE BASED ON THE PRIMARY CLINICAL RECORDS. [facility] [employer] provides no warranty or guarantee of the accuracy or completeness of information in this document.
[2024-07-19 11:31] LABS: Total Protein Urine Random 7.4 mg/dL (<=11.9)
[2024-07-19 11:45] LABS: Alanine Aminotransferase 19 U/L (14-59); Aspartate Amino Transferase 16 U/L (15-37); Estimated GFR (African America >60 (>=60); Estimated GFR (Non-African Ame >60 (>=60); Lactate Dehydrogenase 171 U/L (81-234); Uric Acid 4.3 mg/dL (2.6-6.0)
[2024-07-19 12:00] LABS: INR 0.95; Partial Thromboplastin Time 26.5 sec (22.3-36.2); Prothrombin Time 10.1 sec (9.0-11.6)
[2024-07-19 13:16] LABS: Total Protein 24 Hour Urine 177.6 mg/24hr (<=149.1); Total Volume 24 Hour Urine 2400 mL/24hr
== END 2024-07-19 10:56 | disposition home or self-care (01) ==
LOC: LAB 10:58
PROVIDERS: Visit Provider Physician Assistant
DX: O13.9 Gestational [pregnancy-induced] hypertension without significant proteinuria, unspecified trimester (principal)
CPT/HCPCS: 36415; 81050; 82565; 83615; 84156; 84450; 84460; 84550; 85025; 85610; 85730

== ENCOUNTER 2024-07-20 10:30 | Observation (INO) | payer MEDICAID, SELFPAY ==
--- OUTSIDE RECORDS SUMMARY | 2024-07-20 10:43 | XMS_ITS | CCD ---
Author Organization [facility] Care Team Providers Care Veneer Clipper Name Role Phone TIEN, JAMIL Attending Unavailable TIEN, JAMIL Attending Unavailable ARCENIO, LORRIE Attending Unavailable TIEN, JAMIL Attending Unavailable ARCENIO, LORRIE Attending Unavailable ARCENIO, LORRIE Attending Unavailable TIEN, JAMIL Attending Unavailable ARCENIO, LORRIE Attending Unavailable Encounters Encounter Date Encounter Type Care Provider Facility Start: 07-17-2024 End: 07-17-2024 ambulatory LORRIE ARCENIO Not Available Start: 07-03-2024 End: 07-03-2024 ambulatory JAMIL TIEN [...] Not Available Start: 01-31-2024 End: 01-31-2024 ambulatory JAIML TIEN Not Available Payers Date Payer Category Payer Medicaid [id number] 1995 Unknown [id number] 2.16.84 0.1.693133.3.579.2.9 1996 Unknown [id number] 2.16.84 0.1.602917.3.579.2.1259 1996 Unknown [id number] 2.16.84 0.1.298996.3.579.2.1259 1996 Unknown [id number] 2.16.84 0.1.155018.3.579.2.1259 1996 Unknown [id number] 2.16.84 0.1.791604.3.579.2.1258 1996 Unknown [id number] 2.16.84 0.1.366208.3.579.2.9 1996 Unknown [id number] 2.16.84 0.1.718473.3.579.2.1258 1996 Unknown [id number] 2.16.84 0.1.199720.3.579.2.9 1996 Unknown [id number] 2.16.84 0.1.697155.3.579.2.1259 Summary Purpose Family History No Family History Records Found Advance Directives No Advanced Directives Records Found Additional Source Comments INFORMATION SOURCE (unrecogn ized section and content) DATE CREATED AUTHOR 07/19/2024 [facility] Specialists [facility] FOR RECORDS PERTAINING TO PATIENTS WHO [...] BE BASED ON THE PRIMARY CLINICAL RECORDS. [facility] [employer] [facility]. provides no warranty or guarantee of the accuracy or completeness of information in this document.
[2024-07-20 10:48] VITALS: BP 142/87; PULSE 106
[2024-07-20 11:06] VITALS: BP 134/81; PULSE 96
[2024-07-20 11:20] VITALS: BP 132/81; PULSE 86
[2024-07-20 11:20] LABS: Bilirubin Urine NEGATIVE (NEGATIVE); Blood Urine NEGATIVE (NEGATIVE); Clarity Urine CLEAR (CLEAR); Color Urine DK. YELLOW (YELLOW); Glucose Urine UA 500 mg/dL (NEGATIVE); Ketones Urine TRACE mg/dL (NEGATIVE); Leukocyte Esterase Urine NEGATIVE (NEGATIVE); Nitrite Urine NEGATIVE (NEGATIVE); Protein Urine TRACE mg/dL (NEG/TRACE); Specific Gravity Urine >=1.030 (1.005-1.025)
[2024-07-20 11:23] LABS: Urine Microscopic Indicated NO
[2024-07-20 11:37] VITALS: BP 131/73; PULSE 87
[2024-07-20] MEDS: ACETAMINOPHEN 500 MG TABLET 1000 MG PO (12:01)
[2024-07-20 13:45] LABS: Bilirubin Urine NEGATIVE (NEGATIVE); Blood Urine NEGATIVE (NEGATIVE); Clarity Urine CLEAR (CLEAR); Color Urine LT. YELLOW (YELLOW); Glucose Urine UA NEGATIVE (NEGATIVE); Ketones Urine NEGATIVE (NEGATIVE); Leukocyte Esterase Urine NEGATIVE (NEGATIVE); Nitrite Urine NEGATIVE (NEGATIVE); Protein Urine NEGATIVE (NEG/TRACE); Specific Gravity Urine <=1.005 (1.005-1.025); Urobilinogen Urine 0.2 EU/dL (0.2-1.0)
[2024-07-20 13:53] LABS: Urine Microscopic Indicated NO
== END 2024-07-20 14:05 | disposition home or self-care (01) ==
PROVIDERS: Admitting Provider Obstetrics & Gynecology; Visit Provider Obstetrics & Gynecology
DX: O26.893 Other specified pregnancy related conditions, third trimester (principal); M54.50 Low back pain, unspecified; R10.9 Unspecified abdominal pain; Z3A.31 31 weeks gestation of pregnancy
CPT/HCPCS: 81003; G0378; G0379

== ENCOUNTER 2024-07-24 09:34 | Observation (INO) | payer MEDICAID, SELFPAY ==
[2024-07-24 10:36] LABS: Amnisure NEGATIVE (NEGATIVE); Internal Control Within Normal Limits
[2024-07-24 10:40] VITALS: BP 138/83; PULSE 117
--- NOTE | 2024-07-24 11:16 | US_ITS ---
[address] [address] Patient Name: LINA BAHENA MRN: [id number] date: 1995 Sex: F Assigned Patient Location: [facility] Current Patient Location: Accession/Order Number: [id number] Exam Date: 07/24/2024 11:20 Report Date: 07/24/2024 11:55 At the request of: JAMIL CHAUHAN Procedure: US OB BPP w non-stress EXAMINATION: US OB BPP w non-stress HISTORY:hx pih, hypothyroid, r/o rom COMPARISON: Ultrasound OB growth 07/03/2024 TECHNIQUE: Ultrasound biophysical profile was performed in the radiology department. BREATHING MOVEMENTS: 2 GROSS BODY MOVEMENTS: 2 TONE: 2 QUALITATIVE AMNIOTIC FLUID VOLUME: 2 PRESENTATION: CEPHALIC HEART RATE: 175.32 bpm AMNIOTIC FLUID VOLUME: 12.81 cm GESTATIONAL AGE: 31 weeks 6 days US/US OB BPP w non-stress IMPRESSION: Total biophysical profile score: 8 Electronically authenticated by: ALEA MENDOZA Date: 07/24/2024 11:55
== END 2024-07-24 11:51 | disposition home or self-care (01) ==
PROVIDERS: Admitting Provider Obstetrics & Gynecology; Visit Provider Obstetrics & Gynecology
DX: Z03.71 Encounter for suspected problem with amniotic cavity and membrane ruled out (principal); Z3A.31 31 weeks gestation of pregnancy
CPT/HCPCS: 59025; 76818; 84112; G0378; G0379

== ENCOUNTER 2024-08-01 07:03 | Outpatient (OUT) | payer MEDICAID, SELFPAY ==
--- OUTSIDE RECORDS SUMMARY | 2024-08-01 07:04 | XMS_ITS | CCD ---
Author Organization [facility] Care Team Providers Care Multilith Operator Name Role Phone TIEN, JAMIL Attending [...] Available Payers Date Payer Category Payer Medicaid [id number] 1995 Unknown [id number] 2.16.84 0.1.823999.3.579.2.9 1996 Unknown [id number] 2.16.84 0.1.237135.3.579.2.1259 1996 Unknown [id number] 2.16.84 0.1.744274.3.579.2.1259 1996 Unknown [id number] 2.16.84 0.1.910332.3.579.2.1259 1996 Unknown [id number] 2.16.84 0.1.667699.3.579.2.1258 1996 Unknown [id number] 2.16.84 0.1.644721.3.579.2.9 1996 Unknown [id number] 2.16.84 0.1.709818.3.579.2.1258 1996 Unknown [id number] 2.16.84 0.1.807126.3.579.2.9 1996 Unknown [id number] 2.16.84 0.1.852370.3.579.2.1259 Summary Purpose Family History No Family History Records Found Advance Directives No Advanced Directives Records Found Additional Source Comments INFORMATION SOURCE (unrecogn ized section and content) DATE CREATED AUTHOR 07/19/2024 [facility] Specialists [facility] FOR RECORDS PERTAINING TO PATIENTS WHO ARE [...] BE BASED ON THE PRIMARY CLINICAL RECORDS. [facility] [employer] [facility]. provides no warranty or guarantee of the accuracy or completeness of information in this document.
--- NOTE | 2024-08-01 09:41 | US_ITS ---
[address] [address] Patient Name: LINA BAHENA MRN: [id number] date: 1995 Sex: F Assigned Patient Location: [facility] Current Patient Location: [facility] Accession/Order Number: [id number] Exam Date: 08/01/2024 09:42 Report Date: 08/01/2024 10:12 At the request of: JAMIL CHAUHAN Procedure: US OB BPP w non-stress EXAMINATION: US OB BPP w non-stress HISTORY: Hypothyroidism COMPARISON: No relevant comparison available. TECHNIQUE: Ultrasound biophysical profile was performed in the radiology department. non-reactive stress testing was performed by nursing staff in the birthing center. FINDINGS: BREATHING MOVEMENTS: 2 GROSS BODY MOVEMENTS: 2 TONE: 2 QUALITATIVE AMNIOTIC FLUID VOLUME: 2 PRESENTATION: CEPHALIC HEART RATE: 148.35 bpm AMNIOTIC FLUID VOLUME: 10.5 cm GESTATIONAL AGE: 33 weeks 0 days US/US OB BPP w non-stress IMPRESSION: Total biophysical profile score: 8 Electronically authenticated by: NIGHAT BOND Date: 08/01/2024 10:12
[2024-08-01 10:03] VITALS: BP 135/84; PULSE 106
== END 2024-08-01 10:30 | disposition home or self-care (01) ==
LOC: US 07:03 → FBC 09:36
PROVIDERS: Visit Provider Obstetrics & Gynecology
DX: O09.299 Supervision of pregnancy with other poor reproductive or obstetric history, unspecified trimester (principal); E03.9 Hypothyroidism, unspecified; Z3A.33 33 weeks gestation of pregnancy
CPT/HCPCS: 76818

== ENCOUNTER 2024-08-02 11:08 | Outpatient (OUT) | payer MEDICAID, SELFPAY ==
--- NOTE | 2024-08-02 11:08 | US_ITS ---
[address] [address] Patient Name: LINA BAHENA MRN: [id number] date: 1995 Sex: F Assigned Patient Location: [facility] Current Patient Location: [facility] Accession/Order Number: [id number] Exam Date: 08/02/2024 11:08 Report Date: 08/02/2024 12:13 At the request of: LORRIE RG Procedure: US OB growth EXAMINATION: US OB growth HISTORY: LARGE FOR GESTATIONAL AGE COMPARISON: 07/03/2024 TECHNIQUE: Transabdominal sonographic examination was performed for obstetrical and evaluation. FINDINGS: Number: 1 Heart Rate: 160 bpm H.B. /min Amniotic Fluid Volume: 9.4 cm, largest fluid pocket 3.1 cm position: Cephalic presentation, longitudinal lie BIOMETRY: BPD: 8.13 cm; 32 weeks 5 days; 29.90 % HC: 30.83 cm; 34 weeks 3 days; 45.40 % AC: 31.58 cm; 35 weeks 4 days; 96.80 % FL: 6.50 cm; 33 weeks 4 days; 49 % EFW:2364.35 g; 83.20 %, 5 lbs. 7 oz. FL/AC: 20.58 FL/BPD: 79.95 HC/AC: 0.98 GESTATIONAL AGE: Age by EDC: 33 weeks 1 day SANTIAGO by EDC: 2024-09-19 Age by current US: 34 weeks 1 day SANTIAGO by current US: 2024-09-12 US/US OB growth IMPRESSION: Normal interval growth *Reference: [facility] Practice Guideline for the performance of Obstetric Ultrasound Examinations, August 21, 2007. Electronically authenticated by: NIGHAT BOND Date: 08/02/2024 12:13
--- OUTSIDE RECORDS SUMMARY | 2024-08-02 11:22 | XMS_ITS | CCD ---
Author Organization [facility] Care Team Providers Care Armor Reconnaissance Specialist Name Role Phone TIEN, JAMIL Attending Unavailable [...] Available Start: 03-15-2024 End: 03-15-2024 ambulatory JAMIL TINE Not Available Start: 02-09-2024 End: 02-09-2024 ambulatory JAMIL TIEN Not Available Start: 01-31-2024 End: 01-31-2024 ambulatory JAMIL TIEN Not Available Payers Date Payer Category Payer Medicaid [id number] 1995 Unknown [id number] 2.16.84 0.1.299546.3.579.2.9 1996 Unknown [id number] 2.16.84 0.1.717817.3.579.2.1259 1996 Unknown [id number] 2.16.84 0.1.375646.3.579.2.1259 1996 Unknown [id number] 2.16.84 0.1.876071.3.579.2.1259 1996 Unknown [id number] 2.16.84 0.1.115914.3.579.2.1258 1996 Unknown [id number] 2.16.84 0.1.996093.3.579.2.9 1996 Unknown [id number] 2.16.84 0.1.563501.3.579.2.1258 1996 Unknown [id number] 2.16.84 0.1.881987.3.579.2.9 1996 Unknown [id number] 2.16.84 0.1.500072.3.579.2.1259 Summary Purpose Family History No Family History Records Found Advance Directives No Advanced Directives Records Found Additional Source Comments INFORMATION SOURCE (unrecogn ized section and content) DATE CREATED AUTHOR 07/19/2024 [facility] Specialists [facility] FOR RECORDS PERTAINING TO PATIENTS WHO [...] BE BASED ON THE PRIMARY CLINICAL RECORDS. [facility] [employer] [facility]. provides no warranty or guarantee of the accuracy or completeness of information in this document.
== END 2024-08-02 11:09 | disposition home or self-care (01) ==
LOC: NOMS 11:09
PROVIDERS: Visit Provider Physician Assistant
DX: O36.63X0 Maternal care for excessive fetal growth, third trimester, not applicable or unspecified (principal); Z3A.34 34 weeks gestation of pregnancy
CPT/HCPCS: 76816

== ENCOUNTER 2024-08-04 07:29 | Outpatient (OUT) | payer MEDICAID, SELFPAY ==
--- OUTSIDE RECORDS SUMMARY | 2024-08-04 07:31 | XMS_ITS | CCD ---
Author Organization [facility] Care Team Providers Care Rehabilitation Services Counselor Name Role Phone TIEN, JAMIL Attending [...] Available Payers Date Payer Category Payer Medicaid [id number] 1995 Unknown [id number] 2.16.84 0.1.591343.3.579.2.9 1996 Unknown [id number] 2.16.84 0.1.243540.3.579.2.1259 1996 Unknown [id number] 2.16.84 0.1.191128.3.579.2.1259 1996 Unknown [id number] 2.16.84 0.1.565847.3.579.2.1259 1996 Unknown [id number] 2.16.84 0.1.000160.3.579.2.1258 1996 Unknown [id number] 2.16.84 0.1.346029.3.579.2.9 1996 Unknown [id number] 2.16.84 0.1.770426.3.579.2.1258 1996 Unknown [id number] 2.16.84 0.1.212337.3.579.2.9 1996 Unknown [id number] 2.16.84 0.1.269975.3.579.2.1259 Summary Purpose Family History No Family History Records Found Advance Directives No Advanced Directives Records Found Additional Source Comments INFORMATION SOURCE (unrecogn ized section and content) DATE CREATED AUTHOR 07/19/2024 [facility] Specialists [facility] FOR RECORDS PERTAINING TO PATIENTS WHO [...] BE BASED ON THE PRIMARY CLINICAL RECORDS. [facility] [email or web address] [facility]. provides no warranty or guarantee of the accuracy or completeness of information in this document.
[2024-08-04 09:59] VITALS: BP 123/86; PULSE 109
== END 2024-08-04 10:23 | disposition home or self-care (01) ==
LOC: FBCO 07:30 → FBC 09:55
PROVIDERS: Visit Provider Obstetrics & Gynecology
DX: O99.283 Endocrine, nutritional and metabolic diseases complicating pregnancy, third trimester (principal); Z3A.33 33 weeks gestation of pregnancy
CPT/HCPCS: 59025

== ENCOUNTER 2024-08-07 10:28 | Observation (INO) | payer MEDICAID, SELFPAY ==
--- OUTSIDE RECORDS SUMMARY | 2024-08-07 10:43 | XMS_ITS | CCD ---
Author Organization [facility] Care Team Providers Care Sde Name Role Phone TIEN, JAMIL Attending Unavailable TIEN, JAMIL Attending Unavailable ARCENIO, LORRIE Attending Unavailable TIEN, JAMIL Attending Unavailable ARCENIO, LORRIE Attending Unavailable ARCENIO, LORRIE Attending Unavailable TIEN, JAMIL Attending Unavailable ARCENIO, LORRIE Attending Unavailable TIEN, JAMIL Attending Unavailable Encounters Encounter Date Encounter Type Care Provider Facility Start: 08-02-2024 End: 08-02-2024 ambulatory JAMIL TIEN Not Available Start: 07-17-2024 End: 07-17-2024 ambulatory LORRIE ARCENIO [...] Available Payers Date Payer Category Payer Medicaid [id number] 1995 Unknown [id number] 2.16.84 0.1.918055.3.579.2.1259 1996 Unknown [id number] 2.16.84 0.1.793787.3.579.2.1259 1996 Unknown [id number] 2.16.84 0.1.382416.3.579.2.1259 1996 Unknown [id number] 2.16.84 0.1.826782.3.579.2.1259 1996 Unknown [id number] 2.16.84 0.1.709657.3.579.2.1259 1996 Unknown [id number] 2.16.84 0.1.721762.3.579.2.9 1996 Unknown [id number] 2.16.84 0.1.825673.3.579.2.9 1996 Unknown [id number] 2.16.84 0.1.029335.3.579.2.1259 1996 Unknown [id number] 2.16.84 0.1.027606.3.579.2.1259 1996 Unknown [id number] 2.16.84 0.1.651091.3.579.2.1259 Summary Purpose Family History No Family History Records Found Advance Directives No Advanced Directives Records Found Additional Source Comments INFORMATION SOURCE (unrecogn ized section and content) DATE CREATED AUTHOR 08/04/2024 [facility] Specialists EPIC FOR RECORDS PERTAINING TO [...] BE BASED ON THE PRIMARY CLINICAL RECORDS. [facility] [employer] [facility]. provides no warranty or guarantee of the accuracy or completeness of information in this document.
[2024-08-07 10:45] VITALS: BP 136/90; PULSE 112
[2024-08-07 11:02] LABS: Bilirubin Urine SMALL (NEGATIVE); Blood Urine NEGATIVE (NEGATIVE); Color Urine DK. YELLOW (YELLOW); Glucose Urine UA 250 mg/dL (NEGATIVE); Ketones Urine 15 mg/dL (NEGATIVE); Leukocyte Esterase Urine TRACE (NEGATIVE); Nitrite Urine NEGATIVE (NEGATIVE); Protein Urine 30 mg/dL (NEG/TRACE); Specific Gravity Urine >=1.030 (1.005-1.025)
[2024-08-07 11:09] LABS: Clarity Urine SLIGHTLY CLOUDY (CLEAR); Urine Microscopic Indicated YES
[2024-08-07 11:10] LABS: Bacteria Urine SMALL #/HPF (NONE SEEN); Mucus Urine SMALL (NONE SEEN); RBC Urine NONE SEEN #/HPF (0-2); Squamous Epithelial Cell Urine MODERATE #/LPF (NONE/RARE); Urine Culture Indicated YES
--- NOTE | 2024-08-07 12:54 | US_ITS ---
[address] [address] Patient Name: LINA BAHENA MRN: [id number] date: 1995 Sex: F Assigned Patient Location: [facility] Current Patient Location: [facility] Accession/Order Number: [id number] Exam Date: 08/07/2024 12:56 Report Date: 08/07/2024 13:35 At the request of: JAMIL CHAUHAN Procedure: US OB BPP w non-stress EXAMINATION: US OB BPP w non-stress HISTORY: pelvic pressure, HX of Pre-E COMPARISON: No relevant comparison available. TECHNIQUE: Ultrasound biophysical profile was performed in the radiology department. non-reactive stress testing was performed by nursing staff in the birthing center. FINDINGS: BREATHING MOVEMENTS: 2 GROSS BODY MOVEMENTS: 2 TONE: 2 QUALITATIVE AMNIOTIC FLUID VOLUME: 2 PRESENTATION: CEPHALIC HEART RATE: 158.82 bpm AMNIOTIC FLUID VOLUME: 13.1 cm GESTATIONAL AGE: 33 weeks 6 days US/US OB BPP w non-stress IMPRESSION: Total biophysical profile score: 8 Electronically authenticated by: NIGHAT BOND Date: 08/07/2024 13:35
== END 2024-08-07 13:25 | disposition home or self-care (01) ==
LOC: FBC 10:29
PROVIDERS: Admitting Provider Obstetrics & Gynecology; Visit Provider Obstetrics & Gynecology
DX: O26.893 Other specified pregnancy related conditions, third trimester (principal); R10.2 Pelvic and perineal pain; R11.2 Nausea with vomiting, unspecified; R10.9 Unspecified abdominal pain; M25.559 Pain in unspecified hip; Z3A.33 33 weeks gestation of pregnancy
CPT/HCPCS: 59025; 76818; 81001; 87086; G0378; G0379

== ENCOUNTER 2024-08-15 07:06 | Outpatient (OUT) | payer MEDICAID, SELFPAY ==
--- OUTSIDE RECORDS SUMMARY | 2024-08-15 07:09 | XMS_ITS | CCD ---
Author Organization [facility] Care Team Providers Care Molder Trimmer Name Role Phone TIEN, JAMIL Attending Unavailable TIEN, JAMIL Attending Unavailable ARCENIO, LORRIE Attending Unavailable TIEN, JAMIL Attending Unavailable ARCENIO, LORRIE Attending Unavailable ARCENIO, LORRIE Attending Unavailable TIEN, JAMIL Attending Unavailable ARCENIO, LORRIE Attending Unavailable TIEN, JAMIL Attending Unavailable TIEN, JAMIL Attending Unavailable Encounters Encounter Date Encounter Type Care Provider Facility Start: 08-08-2024 End: 08-08-2024 ambulatory JAMIL TIEN Not Available Start: 08-02-2024 End: 08-02-2024 ambulatory JAMIL TIEN [...] Available Payers Date Payer Category Payer Medicaid [id number] 1995 Unknown [id number] 2.16.84 0.1.950613.3.579.2.1259 1996 Unknown [id number] 2.16.84 0.1.415638.3.579.2.9 1996 Unknown [id number] 2.16.84 0.1.456831.3.579.2.1258 1996 Unknown [id number] 2.16.84 0.1.540399.3.579.2.1258 1996 Unknown [id number] 2.16.84 0.1.262759.3.579.2.1258 1996 Unknown [id number] 2.16.84 0.1.035449.3.579.2.9 1996 Unknown [id number] 2.16.84 0.1.491640.3.579.2.1258 1996 Unknown [id number] 2.16.84 0.1.534271.3.579.2.9 1996 Unknown [id number] 2.16.84 0.1.053334.3.579.2.9 1996 Unknown [id number] 2.16.84 0.1.172027.3.579.2.9 1996 Unknown [id number] 2.16.84 0.1.538601.3.579.2.1259 Summary Purpose Family History No Family History Records Found Advance Directives No Advanced Directives Records Found Additional Source Comments INFORMATION SOURCE (unrecogn ized section and content) DATE CREATED AUTHOR 08/10/2024 [facility] Specialists [facility] FOR RECORDS PERTAINING TO PATIENTS WHO [...] BE BASED ON THE PRIMARY CLINICAL RECORDS. [facility] [employer] [facility]. provides no warranty or guarantee of the accuracy or completeness of information in this document.
--- NOTE | 2024-08-15 09:24 | US_ITS ---
[address] [address] Patient Name: LINA BAHENA MRN: [id number] date: 1995 Sex: F Assigned Patient Location: [facility] Current Patient Location: [facility] Accession/Order Number: [id number] Exam Date: 08/15/2024 09:30 Report Date: 08/15/2024 10:11 At the request of: JAMIL CHAUHAN Procedure: US OB BPP w non-stress EXAMINATION: US OB BPP w non-stress HISTORY:Hypothyroidism E03.9 COMPARISON: Ultrasound OB biophysical 08/07/2024 TECHNIQUE: Ultrasound biophysical profile was performed in the radiology department. BREATHING MOVEMENTS: 2 GROSS BODY MOVEMENTS: 2 TONE: 2 QUALITATIVE AMNIOTIC FLUID VOLUME: 2 PRESENTATION: CEPHALIC HEART RATE: 150.84 bpm AMNIOTIC FLUID VOLUME: 10.07 cm GESTATIONAL AGE: 35 weeks 0 days US/US OB BPP w non-stress IMPRESSION: Total biophysical profile score: 8 Electronically authenticated by: ALEA MENDOZA Date: 08/15/2024 10:11
[2024-08-15 09:53] VITALS: BP 136/86; PULSE 90
[2024-08-15 10:26] VITALS: BP 135/87; PULSE 96
== END 2024-08-15 10:29 | disposition home or self-care (01) ==
LOC: US 07:07 → FBC 09:24
PROVIDERS: Visit Provider Obstetrics & Gynecology
DX: E03.9 Hypothyroidism, unspecified (principal); O99.283 Endocrine, nutritional and metabolic diseases complicating pregnancy, third trimester; Z3A.35 35 weeks gestation of pregnancy
CPT/HCPCS: 76818

== ENCOUNTER 2024-08-16 07:39 | Outpatient (RCR) | payer MEDICAID, SELFPAY ==
[2024-08-15] MEDS: BETAMETHASONE ACE/BETAMETHASONE SOD PHOS 30 MG/5 ML 12 MG IM (09:03)
[2024-08-15 09:45] VITALS: BP 118/73; PULSE 100; TEMP 36.1; O2SAT 98
[2024-08-16] MEDS: BETAMETHASONE ACE/BETAMETHASONE SOD PHOS 30 MG/5 ML 12 MG IM (08:53)
[2024-08-16 08:59] VITALS: BP 138/91; PULSE 101; TEMP 36.6; O2SAT 92
--- NOTE | 2024-08-16 09:00 | PC.NURSE ---
0846: Pt. to [facility] amb. accompanied by mother for second Celestone injection. Seated in recliner. Denies adverse reaction to first injection. VSS. 0853: Medicated with Celestone 12mg IM to left deltoid. Trace bleeding to site, Bandaid applied. Pt. tolerated without c/o. 0855: Pt. d/c'd amb. to home.
== END 2024-08-20 23:59 | disposition home or self-care (01) ==
LOC: INF 07:39
PROVIDERS: Visit Provider Obstetrics & Gynecology
DX: O09.219 Supervision of pregnancy with history of pre-term labor, unspecified trimester (principal); Z3A.00 Weeks of gestation of pregnancy not specified
CPT/HCPCS: 96372; J0702

== ENCOUNTER 2024-08-18 06:57 | Outpatient (OUT) | payer MEDICAID, SELFPAY ==
--- OUTSIDE RECORDS SUMMARY | 2024-08-18 07:00 | XMS_ITS | CCD ---
Author Organization [facility] Care Team Providers Care Spin Table Operator Name Role Phone TIEN, JAMIL Attending [...] Available Payers Date Payer Category Payer Medicaid [id number] 1995 Unknown [id number] 2.16.84 0.1.105553.3.579.2.1259 1996 Unknown [id number] 2.16.84 0.1.656219.3.579.2.9 1996 Unknown [id number] 2.16.84 0.1.014419.3.579.2.1258 1996 Unknown [id number] 2.16.84 0.1.834014.3.579.2.1258 1996 Unknown [id number] 2.16.84 0.1.502611.3.579.2.1258 1996 Unknown [id number] 2.16.84 0.1.632084.3.579.2.9 1996 Unknown [id number] 2.16.84 0.1.928631.3.579.2.1258 1996 Unknown [id number] 2.16.84 0.1.001858.3.579.2.9 1996 Unknown [id number] 2.16.84 0.1.316827.3.579.2.9 1996 Unknown [id number] 2.16.84 0.1.612256.3.579.2.9 1996 Unknown [id number] 2.16.84 0.1.880249.3.579.2.1259 Summary Purpose Family History No Family History Records Found Advance Directives No Advanced Directives Records Found Additional Source Comments INFORMATION SOURCE (unrecogn ized section and content) DATE CREATED AUTHOR 08/10/2024 [facility] Specialists [facility] FOR RECORDS PERTAINING TO PATIENTS WHO ARE [...] PRIMARY CLINICAL RECORDS. [facility] [employer] [facility]. provides no warranty or guarantee of the accuracy or completeness of information in this document.
[2024-08-18 10:08] VITALS: BP 146/80; PULSE 90; TEMP 35.8; TEMP 36
== END 2024-08-18 10:45 | disposition home or self-care (01) ==
LOC: FBCO 06:57 → FBC 09:58
PROVIDERS: Visit Provider Obstetrics & Gynecology
DX: O99.283 Endocrine, nutritional and metabolic diseases complicating pregnancy, third trimester (principal); Z3A.35 35 weeks gestation of pregnancy
CPT/HCPCS: 59025

== ENCOUNTER 2024-08-22 07:01 | Outpatient (OUT) | payer MEDICAID, SELFPAY ==
--- OUTSIDE RECORDS SUMMARY | 2024-08-22 07:03 | XMS_ITS | CCD ---
Author Organization [facility] Care Team Providers Care Sales Marketing Manager Name Role Phone TIEN, JAMIL Attending Unavailable [...] Available Payers Date Payer Category Payer Medicaid [id number] 1995 Unknown [id number] 2.16.84 0.1.938561.3.579.2.1259 1996 Unknown [id number] 2.16.84 0.1.554690.3.579.2.9 1996 Unknown [id number] 2.16.84 0.1.888229.3.579.2.1258 1996 Unknown [id number] 2.16.84 0.1.538592.3.579.2.1258 1996 Unknown [id number] 2.16.84 0.1.074013.3.579.2.1258 1996 Unknown [id number] 2.16.84 0.1.249341.3.579.2.9 1996 Unknown [id number] 2.16.84 0.1.001294.3.579.2.1258 1996 Unknown [id number] 2.16.84 0.1.702852.3.579.2.9 1996 Unknown [id number] 2.16.84 0.1.432186.3.579.2.9 1996 Unknown [id number] 2.16.84 0.1.978586.3.579.2.9 1996 Unknown [id number] 2.16.84 0.1.204364.3.579.2.1259 Summary Purpose Family History No Family History Records Found Advance Directives No Advanced Directives Records Found Additional Source Comments INFORMATION SOURCE (unrecogn ized section and content) DATE CREATED AUTHOR 08/10/2024 [facility] Specialists [facility] FOR RECORDS PERTAINING TO PATIENTS [...] BE BASED ON THE PRIMARY CLINICAL RECORDS. [facility] [employer] [facility]. provides no warranty or guarantee of the accuracy or completeness of information in this document.
--- NOTE | 2024-08-22 09:22 | US_ITS ---
[address] [address] Patient Name: LINA BAHENA MRN: [id number] date: 1995 Sex: F Assigned Patient Location: Current Patient Location: US Accession/Order Number: [id number] Exam Date: 08/22/2024 09:23 Report Date: 08/22/2024 10:00 At the request of: JAMIL CHAUHAN Procedure: US OB BPP w non-stress EXAMINATION: US OB BPP w non-stress HISTORY: Hypothryoidism, E03.9, H/O pre-eclampsia O09.299 COMPARISON: No relevant comparison available. TECHNIQUE: Ultrasound biophysical profile was performed in the radiology department. non-reactive stress testing was performed by nursing staff in the birthing center. FINDINGS: BREATHING MOVEMENTS: 2 GROSS BODY MOVEMENTS: 2 TONE: 2 QUALITATIVE AMNIOTIC FLUID VOLUME: 2 PRESENTATION: CEPHALIC HEART RATE: 152.54 bpm AMNIOTIC FLUID VOLUME: 12.6 cm GESTATIONAL AGE: 36 weeks 0 days US/US OB BPP w non-stress IMPRESSION: Total biophysical profile score: 8 Electronically authenticated by: NIGHAT BOND Date: 08/22/2024 10:00
[2024-08-22 10:13] VITALS: BP 126/83; PULSE 112
--- OUTSIDE RECORDS SUMMARY | 2024-08-29 07:05 | XMS_ITS | CCD ---
Author Organization [facility] Care Team Providers Care Casket Assembler Name Role Phone CORNELL, JAMIL Attending Unavailable CORNELL, JAMIL Attending Unavailable ARCENIO, LORRIE Attending Unavailable CORNELL, JAMIL Attending Unavailable ARCENIO, LORRIE Attending Unavailable ARCENIO, LORRIE Attending Unavailable CORNELL, JAMIL Attending Unavailable ARCENIO, LORRIE Attending Unavailable CORNELL, JAMIL Attending Unavailable CORNELL, JAMIL Attending Unavailable CORNELL, JAMIL Attending Unavailable Unavailable Primary Care Provider Unavailabl e Allergies Allergy Classification Reported Allergen(s) Allergy Type Date of Onset Reaction(s) Facility (2 sources) Wound Dressing Adhesive Propensity to adverse reactions 4 Rash [facility] Medications Current Medications Medication Drug Class(es) Dates Sig (Normalized) Sig (Original) levothyroxine sodium 0.05 mg oral tablet (2 sources) l-Thyroxine Start: 07-03-2024 End: 10-01-2024 take 1 tablet by mouth before mealtime levothyroxine (Synthroid) 50 MCG tablet Indications: Hypothyroidism, unspecified type (CMS/HCC) Take 1 tablet (50 mcg) by mouth in the morning. Take before meals. 90 tablet 2 07/03/2024 10/01/2024 Active NIFEdipine 30 mg osmotic 24 hr extended release oral tablet (2 sources) Dihydropyridine Calcium Channel Katherin Start: 08-02-2024 End: 08-02-2025 take 1 tablet by mouth once daily NIFEdipine XL (Procardia XL) 30 MG 24 hr tablet Indications: H/O pre-eclampsia in prior , currently , Elevated blood pressure affecting , antepartum Take 1 tablet (30 mg) by mouth Daily Do not crush, chew, or split. 30 tablet 3 08/02/2024 08/02/2025 Active omeprazole 20 mg delayed release oral capsule (2 sources) Proton Pump Inhibitor Start: 08-08-2024 End: 08-08-2025 take 1 capsule by mouth once before mealtime omeprazole (PriLOSEC) [address] capsule Indications: Heartburn during in second trimester Take 1 capsule (20 mg) by mouth in the morning. Take before meals. Do not crush or chew.. 30 capsule 11 08/08/2024 08/08/2025 Active Problems Active Problems Problem Classification Problem Date Documented Da te Episodic/Chronic Other and delivery including normal (2 sources) Third trimester ; Translations: [Encounter for supervision of normal , unspecified, third trimester] 08-22-2024 Episodic Other skin disorders (2 sources) Eruption; Translations: [Rash and other nonspecific skin eruption] Onset: 06-28-2024 06-28-2024 Episodic Past or Other Problems Problem Classification Problem Date Documented Date Episodic/Chronic Contraceptive and procreative management (2 sources) Sterilization requested; Translations: [Encounter for sterilization] Onset: 05-07-2024 05-07-2024 Episodic Results Test Name Value Interpretation Reference Range Facil ity Urinalysis macro (dipstick) panel (U)on 08-22-2024 Bilirubin, UA Negative Negative - 4(7 0) +++ mg/dL [facility] Blood, UA Negative Negative - 50 Gunnar/mcL [facility] Clarity, UA Clear [facility] re Color, UA Yellow [facility] Healthcar e Glucose, UA Positive Negative - 1999 (110) ++++ mg/dL [facility] Interpretation and review of laboratory results Abnormal [facility] Ketones, UA Negative Negative - 160( 16) ++++ mg/dL [facility] Leukocytes, UA Trace Negative - 50 0+++ Sanju/mcL [facility] Nitrite, UA Negative Negative - Positive [facility] pH, UA 6.0 5 - 9 [facility] Healthcar e Protein, UA Trace Negative - 1999 (20) ++++ mg/dL [facility] Spec Grav, UA 1.025 1 - 1.03 [facility] care Urobilinogen, UA 1.0 0.2 - 12 mg/dL [facility] Vital Signs Date Time Vital Sign Value Performing Clinician Best johnson 08-22-2024 13:18-0400 Body weight 107.1 kg Jamil Cornell DO Work Phone: [facility] 08-22-2024 13:18-0400 Diastolic blood pressure 80 mm[Hg] Jamil Cornell DO Work Phone: [facility] 08-22-2024 13:18-0400 Systolic blood pressure 126 mm[Hg] Jamil Cornell DO Work Phone: [facility] Healthcare Encounters Encounter Date Encounter Type Care Provider Facility Start: 08-22-2024 End: 08-22-2024 Office outpatient visit 15 minutes Jamil Cornell DO Work Phone: [facility] BCP OB Comment on above: Third trimester preg alessandro Start: 08-22-2024 End: 08-22-2024 ambulatory JAMIL CORNELL Not Available Start: 08-08-2024 End: 08-08-2024 ambulatory JAMIL CORNELL Not Available Start: 08-02-2024 End: 08-02-2024 ambulatory JAMIL CORNELL Not Available Start: 07-17-2024 End: 07-17-2024 ambulatory LORRIE ARCENIO Not Available Start: 07-03-2024 End: 07-03-2024 ambulatory JAMIL CORNELL Not Available Start: 06-28-2024 End: 06-28-2024 ambulatory LORRIE ARCENIO Not Available Start: 06-11-2024 End: 06-11-2024 ambulatory LORRIE ARCENIO Not Available Start: 05-07-2024 End: 05-07-2024 ambulatory JAMIL CORNELL Not Available Start: 04-04-2024 End: 04-04-2024 ambulatory LORRIE ARCENIO Not Available Start: 03-15-2024 End: 03-15-2024 ambulatory JAMIL CORNELL Not Available Start: 02-09-2024 End: 02-09-2024 ambulatory JAMIL CORNELL Not Available Start: 01-31-2024 End: 01-31-2024 ambulatory JAMIL CORNELL Not Available Procedures Date Procedure Procedure Detail Performing Clinician Start: 08-22-2024 Urnls dip stick/tabl et rgnt non-auto w/o micrscp Jamil Cornell DO Work Phone: Plan of Treatment Date Care Activity Detail Author Start: 09-27-2024 End: 09-27-2024 Patient encounter procedure 09/27/2024 8:40 AM EST Consult [facility] [address] [place] [address] Jamil Sarabia DO [address] [place] [address] [facility] Start: 08-22-2024 End: 08-22-2025 Strep B DNA probe, amplification Strep B DNA probe, amplification Lab Routine Third trimester Expected: 08/22/2024 (Approximate), Expires: 08/22/2025 [facility] Work Phone: Comment on above: Expected: 08/22/2024 (Approximate), Expires: 08/22/2025 Payers Date Payer Category Payer Medicaid [employer] [place] [employer] [place] [id number] 2023-Present [address] [address] [place] [address] [id number] 2023 Medicaid [id number] 1995 Unknown [id number] [id number] 1996 Unknown [id number] 2.16840.1.181870.3.579.2.1258 1996 Unknown [id number] 2.16840.1.462285.3.579.2.9 1996 Unknown [id number] 2.16.840.1.688046.3.579.2.9 1996 Unknown [id number] 2.16.840.1.814679.3.579.2.1258 1996 Unknown [id number] 2.16.840.1.190107.3.579.2.9 1996 Unknown [id number] 2.16840.1.423862.3.579.2.9 1996 Unknown [id number] 2.16.840.1.859735.3.579.2.1259 1996 Unknown [id number] 2.16.840.1.275041.3.579.2.1259 1996 Unknown [id number] 2.16.840.1.551318.3.579.2.1259 1996 Unknown [id number] 2.16.840.1.255855.3.579.2.1259 1996 Unknown [id number] 2.16.840.1.077845.3.579.2.1259 Social History Date Type Detail Facility Start: 07-03-2024 Tobacco smoking stat [facility] Never smoked tobacco [facility] Start: 07-03-2024 Tobacco use and exposure Smokeless t obacco non-user [facility] Start: 08-22-2024 Alcoholic beverage intake Ex-drinker (finding) [facility] Start: 07-03-2024 End: 08-22-2024 Alcoholic beverage intake [facility] Start: 07-03-2024 Tobacco use panel [facility] Start: 07-03-2024 Alcohol Comment Only on date n ights and not now [facility] Start: 12-28-2023 [facility] Start: 1995 Sex assigned at Female [facility] Start: 01-24-2024 Gender identity Identifies as female gender (finding) [facility] History of Present illness Narrative 08-22-2024 Leslie Tinsley LPN - 08/22/2024 1:00 PM EDT Note Date & Type Note Facility 08-22-2024 History of Presen t illness Narrative Reason for Appointment: Patient ID: Lisbeth Salazar is a 28 y.o. female who presents for Routine Visit Patient presents today for Return OB appointment. MEDICATIONS Current Outpatient Medications Medication Instructions levothyroxine (SYNTHROID) 50 mcg, Oral, Daily before breakfast NIFEdipine XL (PROCARDIA XL) 30 mg, Oral, Daily, Do not crush, chew, or split. omeprazole (PRILOSEC) 20 mg, Oral, Daily before breakfast, Do not crush or chew. ALLERGIES Allergies Allergen Reactions Wound Dressing Adhesive Rash PROBLEMS Active Ambulatory Problems Diagnosis Date Noted Request for sterilization 05/07/2024 Rash 06/28/2024 Resolved Ambulatory Problems Diagnosis Date Noted No Resolved Ambulatory Problems Past Medical History: Diagnosis Date Hypertension ([facility]/HCC) HISTORY PAST MEDICAL HISTORY SOCIAL HISTORY Past Medical History: Diagnosis Date Hypertension ([facility]/HCC) Social History Tobacco Use Smoking status: Never Smokeless tobacco: Never Substance Use Topics Alcohol use: Not Currently Alcohol/week: 3.0 standard drinks of alcohol Types: 3 Cans of beer per week Comment: Only on date nights and not now Drug use: Never FAMILY HISTORY No family history on file. SURGICAL HISTORY Past Surgical History: Procedure Laterality Date CHOLECYSTECTOMY TONSILLECTOMY REVIEW OF SYSTEMS Review of Systems: Review of Systems Constitutional: Negative. HENT: Negative. Eyes: Negative. Respiratory: Negative. Cardiovascular: Negative. Gastrointestinal: Negative. Genitourinary: Negative. Musculoskeletal: Negative. Skin: Negative. Neurological: Negative. All other systems reviewed and are negative. Hematological: Negative. Endocrine: Negative. Allergic/Immunologic: Negative. OBJECTIVE Objective: Physical Exam Constitutional: Appearance: Normal appearance. She is well-developed. Genitourinary: Vulva normal. Cardiovascular: Rate and Rhythm: Normal rate and regular rhythm. Pulmonary: Effort: Pulmonary effort is normal. Breath sounds: Normal breath sounds. Abdominal: General: Bowel sounds are normal. There is no distension. Palpations: Abdomen is soft. Tenderness: There is no abdominal tenderness. There is no guarding or rebound. Musculoskeletal: General: No swelling. Normal range of motion. Right lower leg: No edema. Left lower leg: No edema. Neurological: Mental Status: She is alert and oriented to person, place, and time. Skin: General: Skin is warm and dry. Psychiatric: Mood and Affect: Mood normal. Behavior: Behavior normal. Vitals and nursing note reviewed. Exam conducted with a director furniture present. Vitals: There is no height or weight on file to calculate BMI. BP: 126/80 No LMP recorded. Patient is . ASSESSMENT & PLAN ICD-10-CM 1. Third trimester Z34.93 POCT urinalysis dipstick manually resulted Strep B DNA probe, amplification Patient is doing well but has complaints of being tired and having maternal discomfort due to . Patient verbalized frequent movement and was instructed to perform kick counts three times per day. labor precautions were given, LARC consent was signed/declined, and GBS was obtained. Cervical check was performed and patient is 1cm dilated. Orders Placed This Encounter Procedures Strep B DNA probe, amplification POCT urinalysis dipstick manually resulted Follow Up: Patient is to return to office in 1 week for routine OB appointment Documented by Leslie Tinsley LPN on behalf of: Jamil Sarabia DO documented in this encounter [facility] Evaluation note Note Date & Type Note Facility Evaluation note Diagnosis Third trimester state, incidental documented in this encounter [facility] Summary Purpose Family History No Family History Records Found Advance Directives No Advanced Directives Records Found Additional Source Comments INFORMATION SOURCE (unrecogn ized section and content) DATE CREATED AUTHOR 08/24/2024 [facility] dical Specialists EPIC Reason for Visit (unrecogniz ed section and content) Reason Comments Routine Visit FOR RECORDS PERTAINING TO PATIENTS WHO ARE [...] BE BASED ON THE PRIMARY CLINICAL RECORDS. [facility]. provides no warranty or guarantee of the accuracy or completeness of information in this document.
== END 2024-08-22 11:38 | disposition home or self-care (01) ==
LOC: US 07:01 → FBC 10:05
PROVIDERS: Visit Provider Obstetrics & Gynecology
DX: E03.9 Hypothyroidism, unspecified (principal); O09.293 Supervision of pregnancy with other poor reproductive or obstetric history, third trimester; Z3A.36 36 weeks gestation of pregnancy
CPT/HCPCS: 76818; 87081; 87150

== ENCOUNTER 2024-08-22 20:11 | Outpatient (REF) | payer MEDICAID, SELFPAY ==
--- OUTSIDE RECORDS SUMMARY | 2024-08-22 20:15 | XMS_ITS | CCD ---
Author Organization [facility] Care Team Providers Care Baker Second Name Role Phone TIEN, JAMIL Attending Unavailable [...] Available Payers Date Payer Category Payer Medicaid [id number] 1995 Unknown [id number] 2.16.84 [id number] 1996 Unknown [id number] 2.16.84 0.1.417763.3.579.2.9 1996 Unknown [id number] 2.16.84 0.1.028156.3.579.2.1258 1996 Unknown [id number] 2.16.84 0.1.259615.3.579.2.1258 1996 Unknown [id number] 2.16.84 0.1.713120.3.579.2.1258 1996 Unknown [id number] 2.16.84 0.1.864623.3.579.2.9 1996 Unknown [id number] 2.16.84 0.1.478943.3.579.2.1258 1996 Unknown [id number] 2.16.84 0.1.008095.3.579.2.9 1996 Unknown [id number] 2.16.84 0.1.284566.3.579.2.9 1996 Unknown [id number] 2.16.84 0.1.797459.3.579.2.9 1996 Unknown [id number] 2.16.84 0.1.551066.3.579.2.1259 Summary Purpose Family History No Family History Records Found Advance Directives No Advanced Directives Records Found Additional Source Comments INFORMATION SOURCE (unrecogn ized section and content) DATE CREATED AUTHOR 08/10/2024 [facility] FOR RECORDS PERTAINING TO PATIENTS [...] BE BASED ON THE PRIMARY CLINICAL RECORDS. [facility]. provides no warranty or guarantee of the accuracy or completeness of information in this document.
== END 2024-08-22 20:12 | disposition home or self-care (01) ==
LOC: LAB 20:11
PROVIDERS: Visit Provider Obstetrics & Gynecology
DX: Z34.93 Encounter for supervision of normal pregnancy, unspecified, third trimester (principal); Z3A.36 36 weeks gestation of pregnancy
CPT/HCPCS: 87081; 87150

== ENCOUNTER 2024-08-31 04:42 | Inpatient (IN) | payer MEDICAID, SELFPAY ==
[2024-08-31] VITALS (60 sets, daily range): BP systolic 87–175; BP diastolic 50–106; PULSE 79–133; TEMP 36.4–37.1
--- OUTSIDE RECORDS SUMMARY | 2024-08-31 04:46 | XMS_ITS | CCD ---
Author Organization [facility] Care Team Providers Care Residential Leasing Agent Name Role Phone CORNELL, JAMIL Attending Unavailable [...] Negative Negative - 4(7 0) +++ mg/dL [facility] Blood, UA Negative Negative - 50 Gunnar/mcL [facility] Clarity, UA Clear [facility] re Color, UA Yellow [facility] Healthcar e Glucose, UA Positive Negative - 1999 (110) ++++ mg/dL [facility] Interpretation and review of laboratory results Abnormal [facility] Ketones, UA Negative Negative - 160( 16) ++++ mg/dL [facility] Leukocytes, UA Trace Negative - 50 0+++ Sanju/mcL [facility] Nitrite, UA Negative Negative - Positive [facility] pH, UA 6.0 5 - 9 [facility] Healthcar e Protein, UA Trace Negative - 1999 (20) ++++ mg/dL [facility] Spec Grav, UA 1.025 1 - 1.03 [facility] care Urobilinogen, UA 1.0 0.2 - 12 mg/dL [facility] Vital Signs Date Time Vital Sign Value Performing Clinician Best johnson 08-22-2024 13:18-0400 Body weight 107.1 kg Jamil Cornell DO Work Phone: [facility] 08-22-2024 13:18-0400 Diastolic blood pressure 80 mm[Hg] Jamil Cornell DO Work Phone: [facility] 08-22-2024 13:18-0400 Systolic blood pressure 126 mm[Hg] Jamil Cornell DO Work Phone: [facility] Healthcare Encounters Encounter Date Encounter Type Care Provider Facility Start: 08-22-2024 End: 08-22-2024 Office outpatient visit 15 minutes Jamil Cornell DO Work Phone: [facility] BCP OB Comment on above: Third [...] AM EST Consult [facility] [address] [address] Jamil Sarabia DO [address] [place] [address] [facility] Start: 08-22-2024 End: 08-22-2025 Strep B DNA probe, amplification Strep B DNA probe, amplification Lab Routine Third trimester Expected: 08/22/2024 (Approximate), Expires: 08/22/2025 [facility] Work Phone: Comment on above: Expected: 08/22/2024 (Approximate), Expires: 08/22/2025 Payers Date Payer Category Payer Medicaid [employer] [place] [employer] [place] [id number] 2023-Present [address] [address] [place] [address] [id number] 2023 Medicaid [id number] 1995 Unknown [id number] [id number] 1996 Unknown [id number] 2.16840.1.892224.3.579.2.1258 1996 Unknown [id number] 2.16840.1.184010.3.579.2.9 1996 Unknown [id number] 2.16.840.1.720246.3.579.2.9 1996 Unknown [id number] 2.16.840.1.380398.3.579.2.1258 1996 Unknown [id number] 2.16.840.1.313471.3.579.2.9 1996 Unknown [id number] 2.16840.1.354934.3.579.2.9 1996 Unknown [id number] 2.16.840.1.250376.3.579.2.1259 1996 Unknown [id number] 2.16.840.1.783846.3.579.2.1259 1996 Unknown [id number] 2.16.840.1.266111.3.579.2.1259 1996 Unknown [id number] 2.16.840.1.426567.3.579.2.1259 1996 Unknown [id number] [id number] Social History Date Type Detail Facility Start: 07-03-2024 Tobacco smoking stat [facility] Never smoked tobacco [facility] Start: [...] Problems Past Medical History: Diagnosis Date Hypertension ([facility]/HCC) HISTORY PAST MEDICAL HISTORY SOCIAL HISTORY Past Medical History: Diagnosis Date Hypertension ([facility]/HCC) Social History Tobacco Use Smoking status: Never [...] nursing note reviewed. Exam conducted with a block paver present. Vitals: There is no height or [...] section and content) DATE CREATED AUTHOR 08/24/2024 [facility] dical Specialists EPIC Reason for [...] BE BASED ON THE PRIMARY CLINICAL RECORDS. [facility]. provides no warranty or guarantee of the accuracy or completeness of information in this document.
[2024-08-31] MEDS: 0.9 % SODIUM CHLORIDE 1,000 ML 125 ML IV (05:25)
[2024-08-31 05:28] LABS: Hematocrit 34.8 % (36.0-48.0); Hemoglobin 11.4 g/dL (12.0-16.0); Mean Corpuscular HGB Conc 32.8 g/dL (29.9-35.2); Mean Corpuscular Hemoglobin 26.8 pg (26.7-34.0); Mean Corpuscular Volume 81.7 fL (81.0-99.0); Mean Platelet Volume 9.7 fL (9.5-13.5); Platelet Count 241 10^3/uL (150-450); Red Blood Count 4.26 10^6/uL (4.20-5.40); Red Cell Distribution Width 14.6 % (11.0-15.0); White Blood Count 9.3 10^3/uL (4.0-11.0)
[2024-08-31 05:39] LABS: Amphetamine Screen Urine NEGATIVE (NEGATIVE); Barbiturates Screen Urine NEGATIVE (NEGATIVE); Benzodiazepines Screen Urine NEGATIVE (NEGATIVE); Buprenorphine Screen Urine NEGATIVE (NEGATIVE); Cannabinoid Screen Urine NEGATIVE (NEGATIVE); Cocaine Screen Urine NEGATIVE (NEGATIVE); Methadone Screen Urine NEGATIVE (NEGATIVE); Methamphetamines Screen Urine NEGATIVE (NEGATIVE); Opiate Screen Urine NEGATIVE (NEGATIVE); Oxycodone Screen Urine NEGATIVE (NEGATIVE); Phencyclidine Screen Urine NEGATIVE (NEGATIVE); Tricyclic Antidepressant Urine NEGATIVE (NEGATIVE)
[2024-08-31] MEDS: OXYTOCIN/0.9 % SODIUM CHLORIDE 10 UNITS/500 ML PLAST..BAG 6 UNIT IV (06:08)
[2024-08-31] MEDS: LABETALOL HCL 200 MG TABLET PO (07:04)
[2024-08-31] MEDS: CALCIUM CARBONATE 500 MG (200MG ELEMENTAL) TAB CHEW PO ×2 (07:21→19:59)
[2024-08-31] MEDS: ROPIVACAINE HCL/PF 400 MG/200 ML PREMIX 6 MG EPIDURAL (08:11)
[2024-08-31] MEDS: 0.9 % SODIUM CHLORIDE 1,000 ML 1000 ML IV (08:12)
[2024-08-31] MEDS: ONDANSETRON PF 4 MG/2 ML VIAL IV (08:35)
--- NOTE | 2024-08-31 11:29 | PM.OBPRCVD ---
Procedure Intrapartal events: None Induction method: per pitocin protocol Delivery augmentation: rupture of membranes and pitocin Delivery monitor: external FHT and external uterine Route of delivery: L&D Laceration Description: perineal - 1st degree Delivery repair: Vicryl Estimated blood loss (mL): 250 Anesthesia type: Epidural Disposition: floor Delivery date: 08/31/24 Gender: female presentation: vertex Placental delivery description: Spontaneous cord description: 3 Vessels and Nuchal Cord (times 2)
[2024-08-31] MEDS: OXYTOCIN/0.9 % SODIUM CHLORIDE 20 UNITS/1,000 ML PLAST..BAG 125 UNIT IV (11:47)
[2024-08-31] MEDS: IBUPROFEN 600 MG TABLET PO (12:59)
[2024-08-31] MEDS: BENZOCAINE/MENTHOL 85 GRAM SPRAY BOTTLE 1 APPLIC TOPICAL (14:00)
[2024-08-31] MEDS: ACETAMINOPHEN 325 MG TABLET 650 MG PO (16:22)
--- NOTE | 2024-08-31 19:13 | W.PC.ACHO ---
Registration Status: ADM IN Primary Language: Belarusian Preferred Language: Belarusian Reported on labor course, IV status, pain meds, lochia. Active Medications Generic Name Dose Route Start Last Admin Trade Name Tj PRN Reason Stop Dose Admin Acetaminophen 650 mg 08/31/24 11:30 08/31/24 16:22 Acetaminophen 325 Mg Tablet PO 650 mg Q6H PRN Administration Mild Pain Al Hydroxide/Mg Hydroxide 2,400 mg 08/31/24 11:30 Magnesium Hydroxide 2,400 Mg/10 Ml Oral.Susp PO Q6H PRN Dyspepsia Benzocaine/Menthol 1 applic 08/31/24 11:30 08/31/24 14:00 Benzocaine/Menthol 85 Gram [place] Bottle TOPICAL 1 applic Q2H PRN Administration Pain Calcium Carbonate 500 mg 08/31/24 07:10 08/31/24 07:21 Calcium Carbonate 500 Mg (200mg Elemental) Tab Chew PO 500 mg ACHS PRN Administration Nausea Carboprost Tromethamine 250 mcg 08/31/24 06:10 Carboprost Tromethamine 250 Mcg/Ml 1 Ml Vial IM 09/02/24 06:10 Q15M PRN Bleeding Diphenhydramine HCl 25 mg 08/31/24 04:44 Diphenhydramine Hcl 50 Mg/Ml Vial IV 09/01/24 04:48 Q6H PRN Itching Diphtheria/Pertussis/Tetanus Vacc 0.5 ml 09/02/24 09:00 Adacel Diph,Pertuss(Acell),Tet Vac/Pf 0.5 Ml Adult Syringe IM 09/02/24 09:01 .ONCE ONE Docusate Sodium 100 mg 09/01/24 09:00 Docusate Sodium 100 Mg Capsule PO BID RAVEN Ephedrine Sulfate 5 mg 08/31/24 04:44 Ephedrine Sulfate 50 Mg/Ml Vial IV 09/01/24 04:48 Q5M PRN Blood Pressure - Low Sodium Chloride 1,000 mls @ 125 mls/hr 08/31/24 05:00 08/31/24 11:30 Sodium Chloride 0.9% 1,000 Ml IV Infused .Q8H RAVEN Infusion Oxytocin/Sodium Chloride 10 units in 500 mls @ 6 mls/hr 08/31/24 04:45 08/31/24 11:47 Pitocin 10 Unit/500 Ml-Ns IV Infused TITR RAVEN Infusion Protocol 2 MILLIUNIT/MIN Ropivacaine/Sodium Chloride 400 mg in 200 mls @ 6 mls/hr 08/31/24 04:45 08/31/24 14:25 Naropin 0.2% 400 Mg/200 Ml Bag EPIDURAL Infused Q24H RAVEN Infusion Ibuprofen 600 mg 08/31/24 11:30 08/31/24 12:59 Ibuprofen 600 Mg Tablet PO 600 mg Q6H PRN Administration Moderate Pain Lidocaine 1 ml 08/31/24 04:44 Lidocaine Hcl 1% 200 Mg/20 Ml Mdv INJ 09/02/24 04:47 ONCE PRN Pain Lidocaine 5 ml 08/31/24 04:44 Lidocaine Hcl 2% Pf 100 Mg/5 Ml Vial INJ 09/01/24 04:48 Q1H PRN epidural Measles/Mumps/Rubella Vaccine Live 0.5 ml 09/02/24 09:00 Measles,Mumps,Rubella Vacc/Pf 0.5 Ml Vial SQ 09/02/24 09:01 .ONCE ONE Methylergonovine Maleate 0.2 mg 08/31/24 06:10 Methylergonovine Maleate 0.2 Mg/Ml Ampule IM 09/02/24 06:10 ONCE PRN Uterine Contractility/Contract Naloxone HCl 0.4 mg 08/31/24 04:44 Naloxone Hcl 0.4 Mg/Ml Vial IV 09/01/24 04:48 ONCE PRN Respiratory depression Ondansetron HCl 4 mg 08/31/24 04:44 08/31/24 08:35 Ondansetron Pf 4 Mg/2 Ml Vial IV 4 mg Q6H PRN Administration Nausea And Vomiting Ondansetron HCl 4 mg 08/31/24 04:44 Ondansetron 4 Mg Rapdis Tablet SL Q6H PRN Nausea And Vomiting Oxytocin 10 unit 08/31/24 06:10 Oxytocin 10 Unit/Ml Vial IM 09/02/24 06:10 ONCE PRN PPH Senna 17.2 mg 08/31/24 20:00 Sennosides 8.6 Mg Tablet PO QHS PRN Constipation Simethicone 80 mg 08/31/24 11:30 Simethicone 80 Mg Tab.Chew PO QID PRN Abdominal Distention Temazepam 15 mg 08/31/24 11:30 Temazepam 15 Mg Capsule PO QHS PRN Sleep Witch Beth/Glycerin 1 pad 08/31/24 11:30 Glycerin/Witch Beth Pads TOPICAL Q2H PRN Pain Diet Category Date Time Status Regular Consistency Diet Diet 08/31/24 11:31 Active Consults Category Date Time Status Consult to Anesthesiology Routine Cons 08/31/24 Ordered IV Insertion/Site Date of IV Line Insertion [ 08/31/24 Short PIV (<1.75 in) 20g right Forearm] IV Insertion Time [Short PIV ( 05:18 <1.75 in) 20g right Forearm] Neurology Patient orientation (short person,place,time,situation list) Respiratory Oxygen Delivery Method Room Air Oxygen Delivery Method Room Air Catheter Date Urinary Catheter Removed 08/31/24
[2024-09-01] MEDS: IBUPROFEN 600 MG TABLET PO ×2 (05:02→13:40)
[2024-09-01] MEDS: LEVOTHYROXINE SODIUM 100 MCG TABLET PO (06:41)
[2024-09-01 06:46] LABS: Basophils Absolute Auto 0.1 10^3/uL (0.0-0.1); Basophils Percent Auto 0.8 % (0.2-2.0); Eosinophils Absolute Auto 0.1 10^3/uL (0.0-0.7); Eosinophils Percent Auto 1.1 % (0.9-7.0); Hematocrit 34.8 % (36.0-48.0); Hemoglobin 11.4 g/dL (12.0-16.0); Immature Granulocytes Abs Auto 0.06 10^3/uL (0.00-0.03); Immature Granulocytes Pct Auto 0.6 % (0.0-0.5); Lymphocytes Absolute Auto 1.8 10^3/uL (1.2-3.8); Lymphocytes Percent Auto 18.3 % (20.5-60.0); Mean Corpuscular HGB Conc 32.8 g/dL (29.9-35.2); Mean Corpuscular Hemoglobin 27.3 pg (26.7-34.0); Mean Corpuscular Volume 83.3 fL (81.0-99.0); Mean Platelet Volume 9.3 fL (9.5-13.5); Monocytes Absolute Auto 0.8 10^3/uL (0.3-0.8); Monocytes Percent Auto 7.5 % (1.7-12.0); Neutrophils Absolute Auto 7.2 10^3/uL (1.4-6.5); Neutrophils Percent Auto 71.7 % (43.0-75.0); Platelet Count 229 10^3/uL (150-450); Red Blood Count 4.18 10^6/uL (4.20-5.40); Red Cell Distribution Width 14.6 % (11.0-15.0); White Blood Count 10.1 10^3/uL (4.0-11.0)
[2024-09-01 08:15] VITALS: TEMP 36.4
[2024-09-01 08:17] VITALS: BP 136/73; PULSE 86
[2024-09-01] MEDS: DOCUSATE SODIUM 100 MG CAPSULE PO (08:18)
[2024-09-01] MEDS: LABETALOL HCL 100 MG TABLET PO (08:19)
[2024-09-01] MEDS: ACETAMINOPHEN 325 MG TABLET 650 MG PO (08:28)
--- NOTE | 2024-09-01 09:37 | PM.OBPN ---
OB - PN: Subj Subjective Patient comments: no complaints and pain well controlled [place] status: doing well Exam Constitutional Vital Signs, click to edit/add: Last Vital Signs Temp 97.5 F L 09/01/24 08:15 Pulse 86 09/01/24 08:17 Resp 14 09/01/24 08:15 BP 136/73 09/01/24 08:17 O2 Del Method Room Air 09/01/24 08:15 Documenting provider has reviewed patient's vital signs: yes Common normals: no apparent distress Respiratory Common normals: normal respiratory effort and clear to auscultation bilaterally Cardio Common normals: regular rate and regular rhythm GI Common normals: Normal to inspection, nondistended, normoactive bowel sounds present Extremity Common normals: normal to inspection and no calf tenderness Results Labs Labs: Short CBC 09/01/24 Range/Units 06:25 WBC 10.1 (4.0-11.0) 10^3/uL Hgb 11.4 L (12.0-16.0) g/dL Hct 34.8 L (36.0-48.0) % Plt Count 229 (150-450) 10^3/uL OB - PN: A/P Plan - Vaginal Delivery day: 1 Plan: routine care Time Spent with Patient Time: Total time spent is greater than 50% in coordination of care (as documented) at patient's floor/unit and/or counseling patient: Total time spent with greater than 50% in coordination of care (as documented) at patient's floor/unit and/or counseling patient: less than 15 minutes
== END 2024-09-01 13:50 | disposition home or self-care (01) | DRG 560 ==
PROVIDERS: Admitting Provider Obstetrics & Gynecology; Visit Provider Obstetrics & Gynecology
DX: O10.92 Unspecified pre-existing hypertension complicating childbirth (principal); O99.284 Endocrine, nutritional and metabolic diseases complicating childbirth; O69.81X0 Labor and delivery complicated by cord around neck, without compression, not applicable or unspecified; E03.9 Hypothyroidism, unspecified; O70.0 First degree perineal laceration during delivery; Z3A.37 37 weeks gestation of pregnancy; Z37.0 Single live birth; Z90.49 Acquired absence of other specified parts of digestive tract; Z87.59 Personal history of other complications of pregnancy, childbirth and the puerperium; Z79.890 Hormone replacement therapy
CPT/HCPCS: 36415; 51702; 59050; 59410; 80307; 85025; 85027; 86850; 86900; 86901; J2405; J2795

== ENCOUNTER 2024-09-08 08:37 | Emergency (ER) | payer MEDICAID, SELFPAY ==
[2024-09-08 08:43] VITALS: BP 160/110; PULSE 72; TEMP 36.6; O2SAT 96
--- OUTSIDE RECORDS SUMMARY | 2024-09-08 08:44 | XMS_ITS | CCD ---
Author Organization [facility] Care Team Providers Care Systems Eng Name Role Phone CORNELL, JAMIL Attending Unavailable [...] Allergy Type Date of Onset Reaction(s) Facility (4 sources) Wound Dressing Adhesive Propensity to adverse reactions Rash [facility] Medications Current Medications Medication Drug Class(es) Dates Sig (Normalized) Sig (Original) levothyroxine sodium 0.05 mg oral tablet (4 sources) l-Thyroxine Start: 07-03-2024 End: 10-01-2024 take 1 tablet by mouth before mealtime levothyroxine (Synthroid) 50 MCG tablet Indications: Hypothyroidism, unspecified type (CMS/HCC) Take 1 tablet (50 mcg) by mouth in the morning. Take before meals. 90 tablet 2 07/03/2024 10/01/2024 Active NIFEdipine 30 mg osmotic 24 hr extended release oral tablet (4 sources) Dihydropyridine Calcium Channel Katherin Start: 08-02-2024 [...] omeprazole 20 mg delayed release oral capsule (4 sources) Proton Pump Inhibitor Start: 08-08-2024 End: [...] third trimester] 08-22-2024 Episodic Other skin disorders (4 sources) Eruption; Translations: [Rash and other nonspecific skin eruption] Onset: 06-28-2024 06-28-2024 Episodic Past or Other Problems Problem Classification Problem Date Documented Date Episodic/Chronic Contraceptive and procreative management (4 sources) Sterilization requested; Translations: [Encounter for sterilization] Onset: 05-07-2024 05-07-2024 Episodic Results Test Name Value Interpretation Reference Range Facil ity ALL CBC WITH AUTO DIFFon BASOPHILS ABSOLUTE AUTO 0.1 N [facility] Basophils/100 WBC (Bld) 0.8 % 0.2 - 2.0 % [facility] Eosinophils/100 WBC (Bld) 1.1 % 0.9 - 7.0 % [facility] Erythrocyte distribution width (RBC) [Ratio] 14.6 % 11.0 - 15.0 % [facility] Hematocrit (Bld) [Volume fraction] 34.8 % Low 36.0 - 48.0 % [facility] Hemoglobin (Bld) [Mass/Vol] 11.4 g/dL Low 12.0 - 16.0 g/dL [facility] IMMATURE GRANULOCYTES ABS AUTO 0.06 High [facility] Immature granulocytes/100 WBC (Bld) 0.6 % High 0.0 - 0.5 % [facility] Interpretation and review of laboratory results Abnormal [facility] LYMPHOC[facility]TES ABSOLUTE [facility]O 1.8 [facility] Lymphocytes/100 WBC (Bld) 18.3 % Low 20.5 - 60. 0 % [facility] MCH (RBC) [Entitic mass] 27.3 pg 26.7 - 34.0 pg [facility] MCHC (RBC) [Mass/Vol] 32.8 g/dL 29.9 - 35.2 g/ dL [facility] MCV (RBC) [Entitic vol] 83.3 fL 81.0 - 99.0 fL [facility] MONOCYTES ABSOLUTE AUTO 0.8 [facility] Monocytes/100 WBC (Bld) 7.5 % 1.7 - 12.0 % [facility] NEUTROPHILS ABSOLUTE AUTO 7.2 High [facility] Neutrophils/100 WBC (Bld) 71.7 % 43.0 - 75. 0 % [facility] Platelet mean volume (Bld) [Entitic vol] 9.3 fL Low 9.5 - 13.5 fL [facility] EO # 0.1 [facility] PLT 229 [facility] TB RBC 4.18 Low [facility] WBC 10.1 [facility] CBC WITH PLATELET NO DI FFERENTIALon 08-31-2024 Erythrocyte distribution width (RBC) [Ratio] 14.6 % 11.0 - 15.0 % [facility] are Hematocrit (Bld) [Volume fraction] 34.8 % Low 36.0 - 48.0 % [facility] Hemoglobin (Bld) [Mass/Vol] 11.4 g/dL Low 12.0 - 16.0 g/dL [facility] Interpretation and review of laboratory results [facility]normal [facility] MCH (RBC) [Entitic mass] 26.8 pg 26.7 - 34.0 pg [facility] MCHC (RBC) [Mass/Vol] 32.8 g/dL 29.9 - 35.2 g/ dL [facility] MCV (RBC) [Entitic vol] 81.7 fL 81.0 - 99.0 fL [facility] Platelet mean volume (Bld) [Entitic vol] 9.7 fL 9.5 - 13.5 fL [facility] are [facility]H PLT 241 [facility] RBC 4.26 [facility] WBC 9.3 [facility] Urinalysis macro (dipstick) panel (U)on 08-22-2024 Bilirubin, UA Negative Negative - 4(7 0) +++ mg/dL [facility] Blood, UA Negative Negative - 50 [place]/mcL [facility] Clarity, UA Clear [facility] Color, UA Yellow [facility] Glucose, UA Positive Negative - 1999(110) ++++ mg/dL [facility] Interpretation and review of laboratory results Abnormal [facility] Healt [facility]care Ketones, UA Negative Negative - 160( 16) ++++ mg/dL [facility] Leukocytes, UA Trace Negative - 50 0+++ Sanju/mcL [facility] Nitrite, UA Negative Negative - Positive [facility] pH, UA 6.0 5 - 9 [facility] Healthcar e Protein, UA Trace Negative - 1999 (20) ++++ mg/dL [facility] Spec Grav, UA 1.025 1 - 1.03 [facility] Urobilinogen, UA 1.0 0.2 - 12 mg/dL [facility] Vital Signs Date Time Vital Sign Value Performing Clinician Best johnson 08-22-2024 13:18-0400 Body weight 107.1 kg Jamil Cornell DO Work Phone: [facility] 08-22-2024 13:18-0400 Diastolic blood pressure 80 mm[Hg] Jamil Cornell DO Work Phone: [facility] 08-22-2024 13:18-0400 Systolic blood pressure 126 mm[Hg] Jamil Cornell DO Work Phone: [facility] Healthcare Encounters Encounter Date Encounter Type Care Provider Facility Start: 09-01-2024 End: 09-01-2024 [facility] Result Encounter Jamil Cornell DO Work Phone: [facility] External Department Unsolicited Start: 09-01-2024 End: 09-01-2024 [facility] Result Encounter Jamil Cornell DO Work Phone: [facility] External Department Unsolicited Start: 08-31-2024 End: 08-31-2024 [facility] Result Encounter Jamil Cornell DO Work Phone: [facility] External Department Unsolicited Start: 08-31-2024 End: 08-31-2024 [facility] Result Encounter Jamil Cornell DO Work Phone: [facility] External Department Unsolicited Start: 08-22-2024 End: 08-22-2024 Office outpatient visit 15 minutes Jamil Cornell DO Work Phone: [facility] Comment on above: Third trimester [...] Date Procedure Procedure Detail Performing Clinician Start: 09-01-2024 ALL CBC WITH AUTO DIFF Jamil Cornell DO Work Phone: Start: 08-31-2024 [facility] CBC WITH PLATEL ET NO DIFFERENTIAL Jamil Cornell DO Work Phone: Start: 08-22-2024 Urnls dip stick/tabl et rgnt non-auto w/o micrscp Jamil Cornell DO Work Phone: Plan of Treatment Date Care Activity Detail Author Start: 09-27-2024 End: 09-27-2024 Patient encounter procedure 09/27/2024 8:40 AM EST Consult [facility] [address] [facility] [place] [address] Cornell, Jamil, [address] [place] [address] [facility] Start: 08-22-2024 End: 08-22-2025 Strep B DNA probe, amplification Strep B DNA probe, amplification Lab Routine Third trimester Expected: 08/22/2024 (Approximate), Expires: 08/22/2025 [facility] Work Phone: Comment on above: Expected: 08/22/2024 (Approximate), Expires: 08/22/2025 Payers Date Payer Category Payer Medicaid [employer] [place] [employer] [id number] 2023-Present [address] [address] [place] [address] [id number] 2023 Medicaid [id number] 1995 Unknown [id number] 1996 Unknown [id number] 1996 Unknown [id number] 1996 Unknown [id number] 1996 Unknown [id number] 1996 Unknown [id number] 1996 Unknown [id number] 1996 Unknown [id number] 1996 Unknown [id number] 1996 Unknown [id number] 1996 Unknown [id number] 1996 Unknown [id number] Social History Date Type Detail Facility Start: 07-03-2024 Tobacco smoking stat [facility] Never smoked tobacco [facility] Start: 07-03-2024 [...] History of Present illness Narrative 08-22-2024 Leslie CamposALEJANDRO sidhu - 08/22/2024 1:00 PM EDT Note Date [...] Problems Past Medical History: Diagnosis Date Hypertension (CMS/HCC) HISTORY PAST MEDICAL HISTORY SOCIAL HISTORY Past Medical History: Diagnosis Date Hypertension (CMS/HCC) Social History Tobacco Use Smoking status: Never [...] nursing note reviewed. Exam conducted with a pan dumper present. Vitals: There is no height or [...] content) DATE CREATED AUTHOR 08/24/2024 [facility] EPIC Reason for [...] BE BASED ON THE PRIMARY CLINICAL RECORDS. [employer] provides no warranty or guarantee of the accuracy or completeness of information in this document.
[2024-09-08 09:00] VITALS: BP 162/103
--- NOTE | 2024-09-08 09:00 | ED.ABDPAIN1 ---
HPI - Abdominal Pain General Chief Complaint: Abdominal Pain Stated Complaint: ABDOMINAL PAIN Time Seen by Provider: 09/08/24 08:48 Source: patient Mode of arrival: walk-in Limitations: no limitations History of Present Illness HPI narrative: The patient is almost 7 days is coming to the ER after she had for the last 2 days abdominal cramping associated with some nausea yesterday, she mentioned that the cramping is severe this morning. She have history of hypertension and she was supposed to be taking labetalol but she did not take it yesterday because of the nausea, the patient denies any fever chills any other abdominal pain The patient abdominal pain is suprapubic cramping associated with no bleeding no fever no foul smell and no vaginal discharge Related Data Home Medications ?Medication ?Instructions ?Recorded ?Confirmed labetalol 100 mg tablet 100 mg PO BID 09/08/24 09/08/24 levothyroxine 50 mcg tablet mcg 09/08/24 Previous Rx's ?Medication ?Instructions ?Recorded metoclopramide HCl 10 mg tablet 10 mg PO Q6H PRN nausea and 01/24/24 (Reglan) vomiting #12 tabs Allergies Allergy/AdvReac Type Severity Reaction Status Date / Time adhesive Allergy Mild Rash Verified 09/08/24 08:50 Review of Systems ROS Status of ROS 10 or more systems reviewed and unremarkable except as noted in history and below PFSH [facility] Social History Smoking status: Never smoker Little interest or pleasure in doing things: not at all Feeling down, depressed, or hopeless: not at all Exam Narrative Exam Narrative: Nurses notes and vital signs reviewed and patient is not hypoxic. General: Well-appearing and in no apparent distress. Skin: Warm, dry, no pallor noted. No rash. Head: Normocephalic, atraumatic. Neck: Supple, non-tender. Eye: Pupils are equal, round and EOMI. No scleral icterus. Ears, Nose, Mouth, and Throat: TM are clear, no nasal mucosal hypertrophy. Oral mucosa is moist, no posterior oropharynx erythema, uvula is mid-line Cardiovascular: Regular Rate and Rhythm without murmur, gallop or rub. Respiratory: No accessory muscle use or respiratory distress. Lungs are clear to auscultation, no wheezing, rales or rhonchi Chest Wall: no tenderness Back: No midline thoracic or lumbar vertebral tenderness. No CVA tenderness Musculoskeletal: normal ROM, no calf or popliteal tenderness, no lower extremity edema/swelling GI: Abdomen is soft, non-distended. Normal bowel sounds. No masses appreciated. Mild suprapubic discomfort, no rebound, guarding, or rigidity noted. Neurological: A&O x4. No cranial nerve dysfunction observed. No truncal ataxia. Moves all extremities. Sensation intact. Psychiatric: Cooperative and interactive. Normal mood and affect. Constitutional Vital Signs, click to edit/add: Last Vital Signs Temp 98 F 09/08/24 08:43 Pulse 76 09/08/24 11:07 Resp 16 09/08/24 11:07 BP 128/82 09/08/24 11:07 Pulse Ox 99 09/08/24 11:07 O2 Del Method Room Air 09/08/24 11:07 Course Vital Signs Vital signs: Vital Signs Temperature 98 F 09/08/24 08:43 Pulse Rate 72 09/08/24 08:43 Respiratory Rate 18 09/08/24 08:43 Blood Pressure 160/110 H 09/08/24 08:43 Pulse Oximetry 96 09/08/24 08:43 Oxygen Delivery Method Room Air 09/08/24 08:43 Temperature 98 F 09/08/24 08:43 Pulse Rate 76 09/08/24 11:07 Respiratory Rate 16 09/08/24 11:07 Blood Pressure 128/82 09/08/24 11:07 Pulse Oximetry 99 09/08/24 11:07 Oxygen Delivery Method Room Air 09/08/24 11:07 MDM - Abdominal Pain MDM Narrative Medical decision making narrative: The patient CBC and chemistry showed no acute pathology her blood pressure was elevated but she did not take her medication yesterday and she have a history of hypertension before and not eclampsia The patient was feeling much better after being treated with a Toradol in the ER And your ultrasound pelvic was pending The patient requested to go home because her need to go to work but she was called later to tell her that the result is negative Right now the patient just continue supportive care and she would just follow-up with her [employer] doctor on Tuesday and call for appointment The patient is to follow up with primary care physician in next 2-3 days or to return to the emergency department should any of the signs or symptoms worsen or new symptoms develop. The patient agrees with the following Diagnosis and Treatment plan and the patient will be discharged home. Lab Data Labs: Lab Results 09/08/24 09/08/24 Range/Units 09:13 09:17 WBC 8.5 (4.0-11.0) 10^3/uL RBC 5.22 (4.20-5.40) 10^6/uL Hgb 14.0 (12.0-16.0) g/dL Hct 42.8 (36.0-48.0) % MCV 82.0 (81.0-99.0) fL MCH 26.8 (26.7-34.0) pg MCHC 32.7 (29.9-35.2) g/dL RDW 14.0 (11.0-15.0) % Plt Count 344 (150-450) 10^3/uL MPV 8.7 L (9.5-13.5) fL Neut % (Auto) 72.2 (43.0-75.0) % Lymph % (Auto) 18.3 L (20.5-60.0) % [place] % (Auto) 6.1 (1.7-12.0) % Eos % (Auto) 2.0 (0.9-7.0) % Baso % (Auto) 0.9 (0.2-2.0) % Neut # (Auto) 6.1 (1.4-6.5) 10^3/uL Lymph # (Auto) 1.6 (1.2-3.8) 10^3/uL [place] # (Auto) 0.5 (0.3-0.8) 10^3/uL Eos # (Auto) 0.2 (0.0-0.7) 10^3/uL Baso # (Auto) 0.1 (0.0-0.1) 10^3/uL Abs Immat Gran (auto) 0.04 H (0.00-0.03) 10^3/uL Imm/Tot Granulo (auto) 0.5 (0.0-0.5) % PT 10.3 (9.0-11.6) sec INR 0.97 Sodium 141 (136-145) mmol/L Potassium 3.8 (3.5-5.1) mmol/L Chloride 105 (98-107) mmol/L Carbon Dioxide 25.5 (21.0-32.0) mmol/L Anion Gap 14.3 BUN 12.0 (7.0-18.0) mg/dL Creatinine 0.80 (0.55-1.02) mg/dL Est GFR ( Amer) >60 (>=60 mL/min/1.73m^2) Est GFR (Non-Af Amer) >60 (>=60 mL/min/1.73m^2) BUN/Creatinine Ratio 15.0 Glucose 93 (74-106) mg/dL Calcium 8.9 (8.5-10.1) mg/dL Magnesium 2.0 (1.8-2.4) mg/dL Total Bilirubin 0.5 (0.2-1.0) mg/dL AST 25 (15-37) U/L ALT 40 (14-59) U/L Alkaline Phosphatase 148 H (46-116) U/L Total Protein 6.8 (6.4-8.2) g/dL Albumin 2.8 L (3.4-5.0) g/dL Globulin 4.0 g/dL Albumin/Globulin Ratio 0.7 Urine Color Lt. yellow (YELLOW) Urine Clarity Clear (CLEAR) Urine pH 8.0 (5.0-9.0) Ur Specific [place] 1.010 (1.005-1.025) Urine Protein Negative (NEG/TRACE) mg/dL Urine Glucose (UA) Negative (NEGATIVE) mg/dL Urine Ketones Negative (NEGATIVE) mg/dL Urine Occult Blood Large A (NEGATIVE) Urine Nitrite Negative (NEGATIVE) Urine Bilirubin Negative (NEGATIVE) Urine Urobilinogen 0.2 (0.2-1.0) EU/dL Ur Leukocyte Esterase Small A (NEGATIVE) Urine RBC 2-5 A (0-2) #/HPF Urine WBC 5-10 A (NONE SEEN) #/HPF Ur Squamous Epith Cells Moderate A (NONE/RARE) #/LPF Urine Crystals None seen (None Seen) #/HPF Urine Bacteria Small A (NONE SEEN) #/HPF Urine Casts None seen (NONE SEEN) #/LPF Urine Mucus None seen (NONE SEEN) Ur Culture Indicated? Yes Discharge Plan Discharge Chief Complaint: Abdominal Pain Clinical Impression: Abdominal pain, Pelvic cramping Patient Disposition: Home, Self-Care Time of Disposition Decision: :03 Condition: Good Mode of Transportation: Private Vehicle Prescriptions / Home Meds: No Action metoclopramide HCl [Reglan] 10 mg tablet 10 mg PO Q6H PRN (Reason: nausea and vomiting) Qty: 12 0RF labetalol 100 mg tablet 100 mg PO BID levothyroxine 50 mcg tablet Print Language: Irish Instructions: Pelvic Pain (ED) Referrals: Physician,Non-Staff, MD [Primary Care Provider] - 1 week Discharge Date/Time: 09/08/24 11:07
--- NOTE | 2024-09-08 09:02 | US_ITS ---
[address] [address] Patient Name: LINA BAHENA MRN: [id number] date: 1995 Sex: F Assigned Patient Location: ER Current Patient Location: Accession/Order Number: [id number] Exam Date: 09/08/2024 09:03 Report Date: 09/08/2024 13:07 At the request of: STEPHEN KIM Procedure: US pelvis EXAM: US pelvis 09/08/2024. HISTORY: 8 days . Pelvic pain. COMPARISON: None. TECHNIQUE: Multiple grayscale sonographic images and color Doppler images of the pelvis were obtained through a transabdominal approach. FINDINGS: Uterus is enlarged measuring 8.0 x 8.0 x 14.0 cm in AP, transverse and craniocaudal dimension respectively. The endometrium appears heterogeneous and thickened. It measures 2.1 cm in thickness. The right and left ovary are not visualized. No free fluid is seen in the pelvic cul-de-sac. US/US pelvis IMPRESSION: 1. The endometrium is mildly thickened and heterogeneous which is compatible with the recent state. 2. The ovaries could not be visualized. Electronically authenticated by: RICCARDO GUILLAUME Date: 09/08/2024 13:07
[2024-09-08] MEDS: KETOROLAC TROMETHAMINE 30 MG/ML VIAL 15 MG IVP (09:18)
[2024-09-08] MEDS: ONDANSETRON PF 4 MG/2 ML VIAL IV (09:18)
[2024-09-08] MEDS: FAMOTIDINE/PF 20 MG/2 ML VIAL IV (09:18)
[2024-09-08 09:19] LABS: Basophils Absolute Auto 0.1 10^3/uL (0.0-0.1); Basophils Percent Auto 0.9 % (0.2-2.0); Eosinophils Absolute Auto 0.2 10^3/uL (0.0-0.7); Hematocrit 42.8 % (36.0-48.0); Immature Granulocytes Abs Auto 0.04 10^3/uL (0.00-0.03); Immature Granulocytes Pct Auto 0.5 % (0.0-0.5); Lymphocytes Absolute Auto 1.6 10^3/uL (1.2-3.8); Lymphocytes Percent Auto 18.3 % (20.5-60.0); Mean Corpuscular HGB Conc 32.7 g/dL (29.9-35.2); Mean Corpuscular Hemoglobin 26.8 pg (26.7-34.0); Mean Platelet Volume 8.7 fL (9.5-13.5); Monocytes Absolute Auto 0.5 10^3/uL (0.3-0.8); Monocytes Percent Auto 6.1 % (1.7-12.0); Neutrophils Absolute Auto 6.1 10^3/uL (1.4-6.5); Neutrophils Percent Auto 72.2 % (43.0-75.0); Platelet Count 344 10^3/uL (150-450); Red Blood Count 5.22 10^6/uL (4.20-5.40); White Blood Count 8.5 10^3/uL (4.0-11.0)
[2024-09-08 09:32] LABS: INR 0.97; Prothrombin Time 10.3 sec (9.0-11.6)
[2024-09-08 09:35] LABS: Alanine Aminotransferase 40 U/L (14-59); Albumin Globulin Ratio 0.7; Albumin Level 2.8 g/dL (3.4-5.0); Alkaline Phosphatase 148 U/L (46-116); Anion Gap 14.3; Aspartate Amino Transferase 25 U/L (15-37); Bilirubin Total 0.5 mg/dL (0.2-1.0); Calcium 8.9 mg/dL (8.5-10.1); Carbon Dioxide 25.5 mmol/L (21.0-32.0); Chloride 105 mmol/L (98-107); Estimated GFR (African America >60 (>=60 mL/min/1.73m^2); Estimated GFR (Non-African Ame >60 (>=60 mL/min/1.73m^2); Glucose 93 mg/dL (74-106); Potassium 3.8 mmol/L (3.5-5.1); Sodium 141 mmol/L (136-145); Total Protein 6.8 g/dL (6.4-8.2)
[2024-09-08 09:45] LABS: Bilirubin Urine NEGATIVE (NEGATIVE); Blood Urine LARGE (NEGATIVE); Clarity Urine CLEAR (CLEAR); Color Urine LT. YELLOW (YELLOW); Glucose Urine UA NEGATIVE (NEGATIVE); Ketones Urine NEGATIVE (NEGATIVE); Leukocyte Esterase Urine SMALL (NEGATIVE); Nitrite Urine NEGATIVE (NEGATIVE); Protein Urine NEGATIVE (NEG/TRACE); Urobilinogen Urine 0.2 EU/dL (0.2-1.0)
[2024-09-08 09:46] LABS: Urine Microscopic Indicated YES
[2024-09-08 09:58] VITALS: BP 133/88
[2024-09-08 10:00] LABS: Bacteria Urine SMALL #/HPF (NONE SEEN); Cast Seen? NONE SEEN #/LPF (NONE SEEN); Crystals Seen? None Seen #/HPF (None Seen); Mucus Urine NONE SEEN (NONE SEEN); Squamous Epithelial Cell Urine MODERATE #/LPF (NONE/RARE); Urine Culture Indicated YES
[2024-09-08 11:07] VITALS: BP 128/82; PULSE 76; O2SAT 99
== END 2024-09-08 11:07 | disposition home or self-care (01) ==
PROVIDERS: Emergency Provider Emergency Medicine
DX: O90.89 Other complications of the puerperium, not elsewhere classified (principal); R10.9 Unspecified abdominal pain; R10.2 Pelvic and perineal pain; O16.5 Unspecified maternal hypertension, complicating the puerperium; Z79.899 Other long term (current) drug therapy
CPT/HCPCS: 36415; 76856; 80053; 81001; 83735; 85025; 85610; 87086; 96374; 96375; 99285; J1885; J2405

== ENCOUNTER 2024-10-17 09:46 | Outpatient (OUT) | payer MEDICAID, SELFPAY ==
--- NOTE | 2024-10-17 09:54 | ECG_ITS ---
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
--- OUTSIDE RECORDS SUMMARY | 2024-10-17 10:02 | XMS_ITS | CCD ---
Author Organization [facility] Care Team Providers Care Remote Sensing Specialist Name Role Phone Unavailable Primary Care Provider Unavailabl e CORNELL, JAMIL Attending Unavailable CORNELL, JAMIL Attending Unavailable ARCENIO, LORRIE Attending Unavailable CORNELL, JAMIL Attending Unavailable ARCENIO, LORRIE Attending Unavailable ARCENIO, LORRIE Attending Unavailable CORNELL, JAMIL Attending Unavailable ARCENIO, LORRIE Attending Unavailable CORNELL, JAMIL Attending Unavailable CORNELL, JAMIL Attending Unavailable CORNELL, JAMIL Attending Unavailable CORNELL, JAMIL Attending Unavailable Allergies Allergy Classification Reported Allergen(s) Allergy Type Date of Onset Reaction(s) Facility (6 sources) Wound Dressing Adhesive Propensity to adverse reactions 4 Rash [facility] Medications Current Medications Medication Drug Class(es) Dates Sig (Normalized) Sig (Original) citalopram 20 mg oral tablet (1 source) Serotonin Reuptake Inhibitor Start: 09-27-20 End: 09-27-20 25 take 1 tablet by mouth once daily citalopram (CeleXA) 20 MG tablet Indications: Post- depression (CMS/HCC) Take 1 tablet (20 mg) by mouth Daily 30 tablet 11 09/27/2024 09/27/2025 Active levothyroxine sodium 0.05 mg oral tablet (6 sources) l-Thyroxine Start: 07-03-20 End: 10-01-20 24 take 1 tablet by mouth before mealtime levothyroxine (Synthroid) 50 MCG tablet Indications: Hypothyroidism, unspecified type (CMS/HCC) Take 1 tablet (50 mcg) by mouth in the morning. Take before meals. 90 tablet 2 07/03/2024 10/01/2024 Active 1 ml medroxyPROGESTERone acetate 150 mg/ml injection (1 source) Progestin Start: 09-27-20 24 End: 12-26-19 25 medroxyPROGESTERone (Depo-Provera) 150 MG/ML injection Indications: Encounter for other contraceptive management Inject 1 mL (150 mg) into the shoulder, thigh, or buttocks every 3 (three) months 1 mL 09/27/2024 12/26/2024 Active mineral oil 0.14 mg/mg / petrolatum 0.719 mg/mg / phenylephrine hydrochloride 0.0025 mg/mg / shark liver oil 0.03 mg/mg rectal ointment (1 source) alpha-1 Adrenergic Agonist Start: 09-04-20 End: 09-27-20 24 apply 28.4 g rectal route twice daily as needed phenylephrine-shark liver oil-mineral oil-petrolatum (Preparation H) 0.25-3-14-71.9 % rectal ointment Indications: Hemorrhoids, unspecified hemorrhoid type Insert into the rectum 2 (two) times a day as needed for hemorrhoids for up to 10 days 28.4 g 09/04/2024 09/27/2024 Discontinued NIFEdipine 30 mg osmotic 24 hr extended release oral tablet (6 sources) Dihydropyridine Calcium Channel Katherin Start: 08-02-20 End: 08-02-20 25 take 1 tablet by mouth once daily NIFEdipine XL (Procardia XL) 30 MG 24 hr tablet Indications: H/O pre-eclampsia in prior , currently , Elevated blood pressure affecting , antepartum Take 1 tablet (30 mg) by mouth Daily Do not crush, chew, or split. 30 tablet 08/02/2024 08/02/2025 Active omeprazole 20 mg delayed release oral capsule (6 sources) Proton Pump Inhibitor Start: 08-08-20 End: 08-08-20 take 1 capsule by mouth once before mealtime omeprazole (PriLOSEC) [address] capsule Indications: Heartburn during in second trimester Take 1 capsule (20 mg) by mouth in the morning. Take before meals. Do not crush or chew.. 30 capsule 08/08/2024 08/08/2025 Active Problems Active Problems Problem Classification Problem Date Documented Date Episodic/Chronic Contraceptive and procreative management (8 sources) Sterilization requested; Translations: [Encounter for sterilization] Onset: 05-07-2024 05-07-2024 Episodic Miscellaneous mental health disorders (1 source) depression; Translations: [ depression] 09-27-2024 Episodic Other and delivery including normal (2 sources) Third trimester ; Translations: [Encounter for supervision of normal , unspecified, third trimester] 08-22-2024 Episodic Past or Other Problems Problem Classification Problem Date Documented Da te Episodic/Chronic Other skin disorders (6 sources) Eruption; Translations: [Rash and other nonspecific skin eruption] Onset: 06-28-2024 06-28-2024 Episodic Results Test Name Value Interpretation Reference Range Facil ity ALL CBC WITH AUTO DIFFon BASOPHILS ABSOLUTE AUTO 0.1 N [facility] Healthcare Basophils/100 WBC (Bld) 0.8 % 0.2 - 2.0 % [facility] Eosinophils/100 WBC (Bld) 1.1 % 0.9 - 7.0 % [facility] Erythrocyte distribution width (RBC) [Ratio] 14.6 % 11.0 - 15.0 % [facility] Hematocrit (Bld) [Volume fraction] 34.8 % Low 36.0 - 48.0 % [facility] Hemoglobin (Bld) [Mass/Vol] 11.4 g/dL Low 12.0 - 16.0 g/dL [facility] IMMATURE GRANULOCYTES ABS AUTO 0.06 High [facility] Immature granulocytes/100 WBC (Bld) 0.6 % High 0.0 - 0.5 % [facility] Interpretation and review of laboratory results Abnormal [facility] LYMPHOCYTES ABSOLUTE AUTO 1.8 [facility] Lymphocytes/100 WBC (Bld) 18.3 % Low 20.5 - 60. 0 % [facility] MCH (RBC) [Entitic mass] 27.3 pg 26.7 - 34.0 pg [facility] MCHC (RBC) [Mass/Vol] 32.8 g/dL 29.9 - 35.2 g/ dL [facility] MCV (RBC) [Entitic vol] 83.3 fL 81.0 - 99.0 fL [facility] MONOCYTES ABSOLUTE AUTO 0.8 N [facility] Monocytes/100 WBC (Bld) 7.5 % 1.7 - 12.0 % [facility] NEUTROPHILS ABSOLUTE AUTO 7.2 High [facility] Neutrophils/100 WBC (Bld) 71.7 % 43.0 - 75. 0 % [facility] Platelet mean volume (Bld) [Entitic vol] 9.3 fL Low 9.5 - 13.5 fL [facility] are TB EO # 0.1 [facility] [address] [facility] RBC 4.18 Low [facility] WBC 10.1 [facility] CBC WITH PLATELET NO DI FFERENTIALon 08-31-2024 Erythrocyte distribution width (RBC) [Ratio] 14.6 % 11.0 - 15.0 % [facility] are Hematocrit (Bld) [Volume fraction] 34.8 % Low 36.0 - 48.0 % [facility] Hemoglobin (Bld) [Mass/Vol] 11.4 g/dL Low 12.0 - 16.0 g/dL [facility] Interpretation and review of laboratory results Abnormal [facility] (RBC) [Entitic mass] 26.8 pg 26.7 - 34.0 pg [facility] MCHC (RBC) [Mass/Vol] 32.8 g/dL 29.9 - 35.2 g/ dL [facility] MCV (RBC) [Entitic vol] 81.7 fL 81.0 - 99.0 fL [facility] Platelet mean volume (Bld) [Entitic vol] 9.7 fL 9.5 - 13.5 fL [facility] are [facility] [address] [facility] RBC 4.26 [facility] WBC 9.3 [facility] Urinalysis macro (dipstick) panel (U)on 08-22-2024 Bilirubin, UA Negative Negative - 4(7 0) +++ mg/dL [facility] Blood, UA Negative Negative - 50 Gunnar/mcL [facility] Clarity, UA Clear [facility] re Color, UA Yellow [facility] e Glucose, UA Positive Negative - 1999(110) ++++ mg/dL [facility] Interpretation and review of laboratory results Abnormal [facility] Ketones, UA Negative Negative - 160( 16) ++++ mg/dL [facility] Leukocytes, UA Trace Negative - 50 0+++ Sanju/mcL [facility] Nitrite, UA Negative Negative - Positive [facility] pH, UA 6.0 5 - 9 [facility] e Protein, UA Trace Negative - 1999 (20) ++++ mg/dL [facility] Spec Grav, UA 1.025 1 - 1.03 [facility] Urobilinogen, UA 1.0 0.2 - 12 mg/dL [facility] e Vital Signs Date Time Vital Sign Value Performing Clinician Best floresy 09-27-2024 08:59-0500 Diastolic blood pressure 68 mm[Hg] Jamil Cornell DO Work Phone: [facility] 09-27-2024 08:59-0500 Systolic blood pressure 120 mm[Hg] Jamil Cornell DO Work Phone: [facility] 08-22-2024 13:18-0400 Body weight 107.1 kg Jamil Cornell DO Work Phone: [facility] 08-22-2024 13:18-0400 Diastolic blood pressure 80 mm[Hg] Jamil Cornell DO Work Phone: [facility] 08-22-2024 13:18-0400 Systolic blood pressure 126 mm[Hg] Jamil Cornell DO Work Phone: [facility] Encounters Encounter Date Encounter Type Care Provider Facility Start: 09-27-2024 End: 09-27-2024 Bamboo flowsheet Jamil Cornell DO Work Phone: [facility] Start: 09-27-2024 End: 09-27-2024 Bamboo flowsheet Jamil Cornell DO Work Phone: [facility] Start: 09-27-2024 End: 09-27-2024 Office outpatient visit 15 minutes Jamil Cornell DO Work Phone: [facility] Comment on above: Pre-op examination; Request for sterilization; Post- depression (CMS/HCC); Encounter for other contraceptive management Start: 09-27-2024 End: 09-27-2024 Preprocedural examination done Jamil Cornell DO Work Phone: [facility] Start: 09-27-2024 End: 09-27-2024 ambulatory JAMIL CORNELL Not Available Start: 09-01-2024 End: 09-01-2024 [facility] Result Encounter Jamil Cornell DO Work Phone: [facility] Unsolic[facility] Start: 09-01-2024 End: 09-01-2024 [facility] Result Encounter Jamil Cornell DO Work Phone: [facility]olic[facility] Start: 08-31-2024 End: 08-31-2024 [facility] Result Encounter Jamil Cornell DO Work Phone: [facility] Unsolic[facility] Start: 08-31-2024 End: 08-31-2024 [facility] Result Encounter Jamil Cornell DO Work Phone: [facility]olic[facility] Start: 08-22-2024 End: 08-22-2024 [...] Start: 09-27-2024 End: 09-27-2024 Patient encounter procedure [facility] Comment on above: Arrived Start: 08-22-2024 End: 08-22-2025 Strep B DNA probe, amplification Strep B DNA probe, amplification Lab Routine Third trimester Expected: 08/22/2024 (Approximate), Expires: 08/22/2025 [facility] Work Phone: Comment on above: Expected: 08/22/2024 (Approximate), Expires: 08/22/2025 Payers Date Payer Category Payer Medicaid [id number] 2023 Medicaid [id number] 1996 Unknown [id number] 2.16.84 [id number] 1996 Unknown [id number] 2.16.84 0.1.325554.3.579.2.1258 1996 Unknown [id number] 2.16.84 0.1.523522.3.579.2.9 1996 Unknown [id number] 2.16.84 0.1.316760.3.579.2.9 1996 Unknown [id number] 2.16.84 0.1.951945.3.579.2.9 1996 Unknown [id number] 2.16.84 0.1.531879.3.579.2.1258 1996 Unknown [id number] 2.16.84 0.1.794469.3.579.2.1259 1996 Unknown [id number] 2.16.84 0.1.238464.3.579.2.1259 1996 Unknown [id number] 2.16.84 0.1.844756.3.579.2.1259 1996 Unknown [id number] 2.16.84 0.1.560641.3.579.2.9 1996 Unknown [id number] 2.16.84 0.1.548220.3.579.2.1259 1996 Unknown [id number] 2.16.84 0.1.115248.3.579.2.1259 1996 Unknown [id number] 2.16.84 0.1.557894.3.579.2.1259 Social History Date Type Detail Facility Start: 07-03-2024 Tobacco smoking stat [facility] Never smoked tobacco [facility] Start: 07-03-2024 Tobacco use and exposure Smokeless t obacco non-user [facility] Start: 08-22-2024 End: 09-05-2024 Alcoholic beverage intake Ex-drinker (finding) [facility] Start: 07-03-2024 End: 08-22-2024 Alcoholic beverage intake [facility] Start: 07-03-2024 Tobacco use panel [facility] Start: 07-03-2024 Alcohol Comment Only on date n ights and not now [facility] Start: 12-28-2023 [facility] Start: 1995 Sex assigned at Female [facility] Start: 01-24-2024 Gender identity Identifies as female gender (finding) [facility] History of Present illness Narrative 09-27-2024 Lydia Andujar - 09/27/2024 8:40 AM EST Note Date & Type Note Facility 09-27-2024 History of Presen t illness Narrative Reason for Appointment: Patient ID: Lisbeth Salazar is a 29 y.o. female who presents for Pre-op Visit and Care Patient presents today for Pre Op/Post Follow Up appointment. Patient is scheduled to undergo Da Rhona assisted Bilateral Laparoscopic Salpingectomy on 10/26/[address] Sarabia at [facility]. MEDICATIONS Current Outpatient Medications Medication Instructions levothyroxine [...] Problems Past Medical History: Diagnosis Date Hypertension ([facility]/HCC) HISTORY PAST MEDICAL HISTORY SOCIAL HISTORY Past [...] Constitutional: Appearance: Normal appearance. She is well-developed. Cardiovascular: Rate and Rhythm: Normal rate and [...] nursing note reviewed. Exam conducted with a dry transfer worker present. Vitals: There is no height or weight on file to calculate BMI. BP: No LMP recorded. ASSESSMENT & PLAN ICD-10-CM 1. Pre-op examination Z01.818 2. Request for sterilization Z30.2 Post Follow Up: Patient is doing well but has complaints of Post Depression, but denies suicidal intentions. Patient aware that medication will be sent to pharmacy to help with symptoms & patient will need to schedule follow up appointment in 4 weeks. Patient presents today for 6 week visit. All options were discussed with the patient regarding control and patient desires permanent sterilization. Pre Op: Patient is doing well but has desire for sterilization. I have discussed conservative management vs. surgical management with the patient in detail and patient desires surgical management at this time. Patient has voiced understanding that a Bilateral Salpingectomy is considered to be permanent and patient will undergo Da Rhona assisted Bilateral Laparoscopic Salpingectomy on 10/26/2024. Surgical consents were signed, mmc was reviewed, and patient is to proceed to [facility] OR. Follow Up: Patient is to follow up between 1-2 weeks post op to assess proper healing and recovery from procedure. Documented by Venessa Leyva LPN on behalf of: Jamil Sarabia DO documented in this encounter [facility] History of Present illness Narrative [...] nursing note reviewed. Exam conducted with a dry transfer worker present. Vitals: There is no height or [...] Jamil Sarabia DO documented in this encounter [facility] Healthcare Evaluation note Note Date & Type Note Facility Evaluation note Diagnosis Third trimester state, incidental documented in this encounter [facility] Evaluation note Note Date & Type Note Facility Evaluation note Diagnosis Pre-op examination Request for sterilization Post- depression ([facility]) Mental disorders of mother, complicating , childbirth, or the puerperium, unspecified as to episode of care Encounter for other contraceptive management documented in this encounter [facility] Summary Purpose Family History No Family History Records Found Advance Directives No Advanced Directives Records Found Additional Source Comments Reason for Visit (unrecogniz ed section and content) Reason Comments Routine Visit Reason Comments Pre-op Visit Care INFORMATION SOURCE (unrecogn ized section and content) DATE CREATED AUTHOR 09/29/2024 [facility] EPIC FOR RECORDS PERTAINING [...] BE BASED ON THE PRIMARY CLINICAL RECORDS. [facility] provides no warranty or guarantee of the accuracy or completeness of information in this document.
== END 2024-10-17 09:47 | disposition home or self-care (01) ==
LOC: PST 09:49
PROVIDERS: Visit Provider Obstetrics & Gynecology
DX: Z01.810 Encounter for preprocedural cardiovascular examination (principal)
CPT/HCPCS: 93005

== ENCOUNTER 2024-10-26 06:58 | Day surgery (SDC) | payer MEDICAID, SELFPAY ==
[2024-10-17 10:28] VITALS: BP 133/84; PULSE 81; TEMP 36.5; O2SAT 98; BMI 35.9
[2024-10-26] VITALS (9 sets, daily range): BP systolic 131–149; BP diastolic 82–99; PULSE 64–98; TEMP 36.2–36.3; O2SAT 88–99; BMI 36.6
--- OUTSIDE RECORDS SUMMARY | 2024-10-26 07:01 | XMS_ITS | CCD ---
Author Organization [facility] Care Team Providers Care Theater Teacher Name Role Phone Unavailable Primary Care Provider [...] AUTO DIFFon BASOPHILS ABSOLUTE AUTO 0.1 N [facility] Healthcare Basophils/100 WBC (Bld) 0.8 % 0.2 - 2.0 % [facility] Eosinophils/100 WBC (Bld) 1.1 % 0.9 - 7.0 % [facility] Erythrocyte distribution width (RBC) [Ratio] 14.6 % 11.0 - 15.0 % [facility] Hematocrit (Bld) [Volume fraction] 34.8 % Low 36.0 - 48.0 % [facility] Hemoglobin (Bld) [Mass/Vol] 11.4 g/dL Low 12.0 - 16.0 g/dL [facility] IMMATURE GRANULOCYTES ABS AUTO 0.06 High [facility] Immature granulocytes/100 WBC (Bld) 0.6 % High 0.0 - 0.5 % [facility] Interpretation and review of laboratory results Abnormal [facility] LYMPHOCYTES ABSOLUTE AUTO 1.8 [facility] Lymphocytes/100 WBC (Bld) 18.3 % Low 20.5 - 60. 0 % [facility] MCH (RBC) [Entitic mass] 27.3 pg 26.7 - 34.0 pg [facility] MCHC (RBC) [Mass/Vol] 32.8 g/dL 29.9 - 35.2 g/ dL [facility] MCV (RBC) [Entitic vol] 83.3 fL 81.0 - 99.0 fL [facility] MONOCYTES ABSOLUTE AUTO 0.8 N [facility] Monocytes/100 WBC (Bld) 7.5 % 1.7 - 12.0 % [facility] NEUTROPHILS ABSOLUTE AUTO 7.2 High [facility] Neutrophils/100 WBC (Bld) 71.7 % 43.0 - 75. 0 % [facility] Platelet mean volume (Bld) [Entitic vol] 9.3 fL Low 9.5 - 13.5 fL [facility] are TB EO # 0.1 [facility] [address] [facility] RBC 4.18 Low [facility] WBC 10.1 [facility] CBC WITH PLATELET NO DI FFERENTIALon 08-31-2024 Erythrocyte distribution width (RBC) [Ratio] 14.6 % 11.0 - 15.0 % [facility] are Hematocrit (Bld) [Volume fraction] 34.8 % Low 36.0 - 48.0 % [facility] Hemoglobin (Bld) [Mass/Vol] 11.4 g/dL Low 12.0 - 16.0 g/dL [facility] Interpretation and review of laboratory results Abnormal [facility] (RBC) [Entitic mass] 26.8 pg 26.7 - 34.0 pg [facility] MCHC (RBC) [Mass/Vol] 32.8 g/dL 29.9 - 35.2 g/ dL [facility] MCV (RBC) [Entitic vol] 81.7 fL 81.0 - 99.0 fL [facility] Platelet mean volume (Bld) [Entitic vol] 9.7 fL 9.5 - 13.5 fL [facility] are [facility] [address] [facility] RBC 4.26 [facility] WBC 9.3 [facility] Urinalysis macro (dipstick) panel (U)on 08-22-2024 Bilirubin, UA Negative Negative - 4(7 0) +++ mg/dL [facility] Blood, UA Negative Negative - 50 Gunnar/mcL [facility] Clarity, UA Clear [facility] re Color, UA Yellow [facility] e Glucose, UA Positive Negative - 1999(110) ++++ mg/dL [facility] Interpretation and review of laboratory results [facility] Ketones, UA Negative Negative - 160( 16) ++++ mg/dL [facility] Leukocytes, UA Trace Negative - 50 0+++ Sanju/mcL [facility] Nitrite, UA Negative Negative - Positive [facility] pH, UA 6.0 5 - 9 [facility] e Protein, UA Trace Negative - 1999 (20) ++++ mg/dL [facility] Spec Grav, UA 1.025 1 - 1.03 [facility] Urobilinogen, UA 1.0 0.2 - 12 mg/dL [facility] e Vital Signs Date Time Vital Sign Value Performing Clinician Best floresy 09-27-2024 08:59-0500 Diastolic blood pressure 68 mm[Hg] Jamil Cornell DO Work Phone: [facility] 09-27-2024 08:59-0500 Systolic blood pressure 120 mm[Hg] Jamil Cornell DO Work Phone: [facility] 08-22-2024 13:18-0400 Body weight 107.1 kg Jamil Cornell DO Work Phone: [facility] 08-22-2024 13:18-0400 Diastolic blood pressure 80 mm[Hg] Jamil Cornell DO Work Phone: [facility] 08-22-2024 13:18-0400 Systolic blood pressure 126 mm[Hg] Jamil Cornell DO Work Phone: [facility] Encounters Encounter Date Encounter Type Care Provider Facility Start: 09-27-2024 End: 09-27-2024 Bamboo flowsheet Jamil Cornell DO Work Phone: [facility] Start: 09-27-2024 End: 09-27-2024 Bamboo flowsheet Jamil Cornell DO Work Phone: [facility] Start: 09-27-2024 End: 09-27-2024 Office outpatient visit 15 minutes Jamil Cornell DO Work Phone: [facility] Comment on above: Pre-op examination; Request for sterilization; Post- depression (CMS/HCC); Encounter for other contraceptive management Start: 09-27-2024 End: 09-27-2024 Preprocedural examination done Jamil Cornell DO Work Phone: [facility] Start: 09-27-2024 End: 09-27-2024 ambulatory JAMIL CORNELL [...] 08-22-2024 Office outpatient visit 15 minutes Jamil Ocrnell DO Work Phone: [facility] Comment [...] 08/22/2025 Payers Date Payer Category Payer Medicaid [id number] 2023 Medicaid [id number] 1995 Unknown [id number] 2.16.84 0.1.659021.3.579.2.9 1996 Unknown [id number] 2.16.84 0.1.813869.3.579.2.1258 1996 Unknown [id number] 2.16.84 0.1.557516.3.579.2.9 1996 Unknown [id number] 2.16.84 0.1.102846.3.579.2.9 1996 Unknown [id number] 2.16.84 0.1.711242.3.579.2.9 1996 Unknown [id number] 2.16.84 0.1.006417.3.579.2.1258 1996 Unknown [id number] 2.16.84 0.1.860249.3.579.2.1259 1996 Unknown [id number] 2.16.84 0.1.276266.3.579.2.1259 1996 Unknown [id number] 2.16.84 0.1.215869.3.579.2.1259 1996 Unknown [id number] 2.16.84 0.1.538173.3.579.2.9 1996 Unknown [id number] 2.16.84 0.1.327106.3.579.2.1259 1996 Unknown [id number] 2.16.84 0.1.339723.3.579.2.1259 1996 Unknown [id number] 2.16.84 0.1.766598.3.579.2.1259 Social History Date Type Detail Facility Start: 07-03-2024 Tobacco smoking stat [facility] Never smoked tobacco [facility] Start: [...] on 10/26/[address] Sarabia at [facility]. MEDICATIONS Current Outpatient Medications Medication Instructions levothyroxine [...] Problems Past Medical History: Diagnosis Date Hypertension ([facility]/HCC) HISTORY PAST MEDICAL HISTORY SOCIAL HISTORY [...] nursing note reviewed. Exam conducted with a maintenance mechanic 2nd shift present. Vitals: There is no height or [...] reviewed, and patient is to proceed to [facility] OR. Follow Up: Patient is to [...] nursing note reviewed. Exam conducted with a maintenance mechanic 2nd shift present. Vitals: There is no height or [...] Jamil Sarabia DO documented in this encounter [facility] Healthcare Evaluation note Note Date & Type Note Facility Evaluation note Diagnosis Third trimester state, incidental documented in this encounter [facility] Evaluation note Note Date & Type Note Facility Evaluation note Diagnosis Pre-op examination Request for sterilization Post- depression ([facility]) Mental disorders of mother, complicating , childbirth, [...] section and content) DATE CREATED AUTHOR 09/29/2024 [facility] EPIC FOR RECORDS PERTAINING TO [...] BE BASED ON THE PRIMARY CLINICAL RECORDS. [facility] provides no warranty or guarantee of the accuracy or completeness of information in this document.
[2024-10-26 07:14] LABS: Basophils Absolute Auto 0.1 10^3/uL (0.0-0.1); Eosinophils Absolute Auto 0.3 10^3/uL (0.0-0.7); Eosinophils Percent Auto 3.5 % (0.9-7.0); Hematocrit 42.6 % (36.0-48.0); Hemoglobin 13.7 g/dL (12.0-16.0); Immature Granulocytes Abs Auto 0.04 10^3/uL (0.00-0.03); Immature Granulocytes Pct Auto 0.4 % (0.0-0.5); Lymphocytes Absolute Auto 2.6 10^3/uL (1.2-3.8); Lymphocytes Percent Auto 27.3 % (20.5-60.0); Mean Corpuscular HGB Conc 32.2 g/dL (29.9-35.2); Mean Corpuscular Hemoglobin 26.5 pg (26.7-34.0); Mean Corpuscular Volume 82.4 fL (81.0-99.0); Mean Platelet Volume 8.6 fL (9.5-13.5); Monocytes Absolute Auto 0.7 10^3/uL (0.3-0.8); Monocytes Percent Auto 6.7 % (1.7-12.0); Neutrophils Absolute Auto 5.9 10^3/uL (1.4-6.5); Neutrophils Percent Auto 61.1 % (43.0-75.0); Platelet Count 332 10^3/uL (150-450); Red Blood Count 5.17 10^6/uL (4.20-5.40); Red Cell Distribution Width 15.4 % (11.0-15.0); White Blood Count 9.6 10^3/uL (4.0-11.0)
[2024-10-26] MEDS: LACTATED RINGER'S SOLUTION 1,000 ML 50 ML IV (07:33)
[2024-10-26 07:44] LABS: HCG Quantitative <1 mIU/mL
--- NOTE | 2024-10-26 10:06 | PM.ONB ---
Brief Operative Note Date of procedure: 10/26/24 Pre-op diagnosis general: desires permanent sterilization, multiparity Post-op diagnosis: same as pre-op Procedure: NAME OF PROCEDURE: robotic assisted bilateral laparoscopic salpingectomy PROCEDURE: The patient was taken back to the Operating Room where she was given general anesthesia without difficulty. She was then prepped and draped in the normal sterile fashion after being placed in a dorsal lithotomy position. A wet sponge stick was placed into the patient's vagina. Attention was then turned to the patient's abdomen, where a scalpel was used to make a small infraumbilical incision. The S retractors were then used to dissect the underlying layers until the fascia could be seen. The fascia was then grasped with Ercikson clamps and tented up. A knife was then used to make a small incision to the fascia. The muscle was identified, at that time two sutures of #0 Vicryl on a GI needle was then used and placed through the fascia. the peritoneum was then identified and entered bluntly. The 10-4 Valerie was then placed into the patient's abdomen. This was confirmed with direct visualization of the bowel, using the laparoscope. The patient's abdomen was then insufflated using approximately 4 liters of CO2 gas. Survey of the patient's abdomen demonstrated ovaries were normal in appearance as well as both tubes and uterus. A second and third rt and lt lateral robotic ports which were 8 mm in size, was then placed after the skin incision was made under direct visualization . the robotic arms were engaged. The patient's tube on the patient's right side was identified and tented up using a grasper, the ligasure apparatus was then used to come across the mesosalpingx from the fimbriated end to the insertion site at the uterus, the tube was then amputated and removed in its entirety. This was done on the contralateral side. The tubes were the removed from the patients abdomen. Excellent hemostasis was noted. The lateral ports were then moved under direct visualization with excellent hemostasis. All instruments were removed from the patient's abdomen. The fascia was closed using the #0 Vicryl on GI needle. The skin was closed using 4-0 Vicryl subcuticularly. All instruments were removed from the patient's vagina as well. The patient was taken out of the dorsal lithotomy position and placed in the supine position and taken to recovery in stable condition. Sponge, lap and needle counts were correct x2. Anesthesia: KARI Surgeon: Kentrell Sarabia Clinical Trial Coordinator: Floresita Tom Estimated blood loss (mL): 5 Pathology: other (bilateral tubes) Condition: stable Disposition: PACU
[2024-10-26] MEDS: LACTATED RINGER'S SOLUTION 1,000 ML 150 ML IV (10:15)
[2024-10-26] MEDS: PROMETHAZINE HCL 25 MG TABLET PO (11:27)
--- NOTE | 2024-10-26 11:33 | PC.NURSE ---
changed dressing to the far left due to increased drainage. patient complaining of nausea. Gave oral phenerghan at 1127
--- NOTE | 2024-10-26 12:14 | PC.NURSE ---
Patinet urinated and nausea improved. ready to be discharged
== END 2024-10-26 12:14 | disposition home or self-care (01) ==
PROVIDERS: Visit Provider Obstetrics & Gynecology
PROC: (CPT 840; principal; 2024-10-26 08:20)
DX: Z30.2 Encounter for sterilization (principal); N83.8 Other noninflammatory disorders of ovary, fallopian tube and broad ligament; G47.33 Obstructive sleep apnea (adult) (pediatric); J45.909 Unspecified asthma, uncomplicated; K21.9 Gastro-esophageal reflux disease without esophagitis; E03.9 Hypothyroidism, unspecified
CPT/HCPCS: 58661; 36415; 84702; 85025; 88302; J1100; J1885; J2250; J2405; J2704; J2710; J3010; Q0169

== ENCOUNTER 2024-10-29 13:13 | Emergency (ER) | payer MEDICAID, SELFPAY ==
[2024-10-29 13:17] VITALS: BP 192/110; PULSE 99; TEMP 36.6; O2SAT 99; BMI 36.4
--- NOTE | 2024-10-29 13:28 | ECG_ITS ---
[facility] Test Date: 2024-10-29 Pat Name: LINA BAHENA Department: Room: - Gender: Female Professional Fighter: : 1995 Requested By: [id number] Order Number: [id number] Reading MD: NASEEM VÁZQUEZ Measurements Intervals [place] Rate: 79 P: 35 WI: 136 QRS: 84 QRSD: 98 T: 42 QT: 372 QTc: 406 Interpretive Statements 1100 Sinus rhythm 9110 normal ECG Compared to ECG 10/17/2024 10:25:39 No significant changes Electronically Signed On 10-29-2024 22:52:01 EST by NASEEM VÁZQUEZ
--- NOTE | 2024-10-29 13:28 | XR_ITS ---
The [address] [address] Patient Name: LINA BAHENA MRN: [id number] date: 1995 Sex: F Assigned Patient Location: ER Current Patient Location: ED.MAIN Accession/Order Number: [id number] Exam Date: 10/29/2024 13:48 Report Date: 10/29/2024 13:59 At the request of: JLUIS RUIZ Procedure: XR chest 1V EXAMINATION: XR chest 1V HISTORY: Hypertension COMPARISON: No relevant comparison available. FINDINGS: LUNGS: No significant pulmonary parenchymal abnormalities. VASCULATURE: No increased pulmonary vasculature. PLEURA: No pneumothorax, effusion, or pleural thickening. CARDIAC: No cardiomegaly or cardiac silhouette abnormality. MEDIASTINUM: No visible mass or adenopathy. BONES: No fracture or visible bone lesion. OTHER: Negative. XR/XR chest 1V IMPRESSION: 1. Normal chest. Electronically authenticated by: ALEA MENDOZA Date: 10/29/2024 13:59
--- NOTE | 2024-10-29 13:29 | ED_ITS ---
<Statement entered by Bolivar Camacho MD - 10/30/24 12:28> Chart was sent to my inbox for administrative and group management purposes. I was the attending physicians working during the patients hospital course. The patient was seen and managed independently by the MLP. I did not personally see or evaluate this patient, nor was I involved in the patient medical decision making process or plans of care. Pt was dispositioned by the MLP with complete independence. I was available for consultation should the MLP request during this patients ED stay. This documentation has been reviewed and approved. HPI HPI - General Adult General Chief complaint: Recheck/Abnormal Lab/Rx Stated complaint: HYPERTENSION Time Seen by Provider: 10/29/24 13:14 Source: patient Mode of arrival: walk-in Limitations: no limitations History of Present Illness HPI narrative: Patient is a pleasant 29-year-old female who presents to the emergency department for evaluation of elevated blood pressures intermittently for the last several weeks. She states that her talkrqo-fi-oud recently so she has been under a lot of stress. She had a tubal ligation last week without any issues or complications. She states that she was on blood pressure medication throughout her but is no longer on this medication, she also forgot to take her thyroid medication. She recently had cold symptoms but states she did not take any [id number] antihistamines. She states she feels lightheaded and as though her eyes are straining but does not have any severe headaches, peripheral paresthesias, speech changes, chest pain, shortness of breath or weakness. She is sitting comfortably at initial interview in no distress. Related Data Home Medications ?Medication ?Instructions ?Recorded ?Confirmed levothyroxine 50 mcg tablet 50 mcg PO DAILY 09/08/24 10/29/24 Allergies Allergy/AdvReac Type Severity Reaction Status Date / Time adhesive Allergy Mild Rash Verified 10/17/24 10:06 Opioid HPI Opioid Management Most Recent Opioid Data: Last Pain Scale 3 10/26/24 07:05 10/26/24 Last Pain Assessment 10/26/24 12:00 Ur Phencyclidine Scrn Negative (NEGATIVE) 08/31/24 05:00 08/21 12/14 Review of Systems ROS Constitutional Denies: fever or chills Ears, nose, mouth, and throat Denies: throat pain or nasal congestion Cardiovascular Denies: chest pain Respiratory Denies: shortness of breath Gastrointestinal Denies: abdominal pain, nausea or vomiting Integumentary/Breast Denies: rash Neurological Reports: dizziness; Denies: headache, numbness in extremities or weakness in extremities Hematologic/Lymphatic Denies: easy bruising or easy bleeding PFSH PFSH Medical History (Updated 10/29/24 @ 14:21 by LETICIA Jack) Social anxiety disorder ?F40.10 - Social phobia, unspecified (ICD-10) Panic attacks ?F41.0 - Panic disorder [episodic paroxysmal anxiety] (ICD-10) Anxiety ?F41.9 - Anxiety disorder, unspecified (ICD-10) Sleep apnea ?G47.30 - Sleep apnea, unspecified (ICD-10) Asthma ?J45.909 - Unspecified asthma, uncomplicated (ICD-10) Migraine ?G43.909 - Migraine, unspecified, not intractable, without status migrainosus (ICD-10) GERD (gastroesophageal reflux disease) ?K21.9 - Gastro-esophageal reflux disease without esophagitis (ICD-10) Hypertension ?I10 - Essential (primary) hypertension (ICD-10) Hypothyroidism ?E03.9 - Hypothyroidism, unspecified (ICD-10) 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 - depression (ICD-10) Request for sterilization ?Z30.2 - Encounter for sterilization (ICD-10) Surgical History (Updated 10/17/24 @ 10:38 by Preeti Carrasco NP) History of appendectomy ?Z90.49 - Acquired absence of other specified parts of digestive tract (ICD- 10) History of tonsillectomy ?Z90.89 - Acquired absence of other organs (ICD-10) Family History (Updated 10/17/24 @ 10:11 by Preeti Carrasco NP) Other Cancer Delayed recovery from anesthesia Family history of DVT Family history of diabetes mellitus Family history of hypertension Family history of seizures Family history of stroke Social History Within the past year, how often did you have a drink containing alcohol: monthly or less Smoking status: Never smoker Non-prescribed substance use: denies use Highest level of school completed/degree received: high school graduate Little interest or pleasure in doing things: not at all Feeling down, depressed, or hopeless: not at all Exam Narrative Exam Narrative: Gen.: Awake, alert, in no distress Head: Normocephalic, atraumatic ENT: Moist mucous membranes Respiratory: No respiratory distress, lungs clear bilaterally Cardio: Regular rate and rhythm Gastrointestinal: Abdomen is soft, nondistended with well-healing laparoscopic surgical incisions to the lower abdomen, Steri-Strips in place. No dehiscence or drainage Extremities: Moves extremities equally Psych: Normal mood and affect Neuro: No focal neuro deficit Skin: Warm, dry, intact Constitutional Vital Signs, click to edit/add: Last Vital Signs Temp 98 F 10/29/24 13:17 Pulse 84 10/29/24 14:06 Resp 17 10/29/24 14:06 BP 125/77 10/29/24 14:06 Pulse Ox 99 10/29/24 13:17 O2 Del Method Room Air 10/29/24 13:17 Course Vital Signs Vital signs: Vital Signs Temperature 98 F 10/29/24 13:17 Pulse Rate 99 H 10/29/24 13:17 Respiratory Rate 18 10/29/24 13:17 Blood Pressure 192/110 H 10/29/24 13:17 Pulse Oximetry 99 10/29/24 13:17 Oxygen Delivery Method Room Air 10/29/24 13:17 Temperature 98 F 10/29/24 13:17 Pulse Rate 84 10/29/24 14:06 Respiratory Rate 17 10/29/24 14:06 Blood Pressure 125/77 10/29/24 14:06 Pulse Oximetry 99 10/29/24 13:17 Oxygen Delivery Method Room Air 10/29/24 13:17 Medical Decision Making [facility] Narrative Medical decision making narrative: Patient was ordered to have labetalol and Vasotec, however on rechecking her blood pressure prior to medication administration, her blood pressure is 125/77. Patient is more relaxed. Chest x-ray, EKG and lab studies show the patient has a minimally elevated TSH. She was encouraged to take her to thyroid medication as prescribed and she will be referred to a primary care provider locally to recheck her blood pressure and determine if she should be on blood pressure medication daily, however at this point I suspect her breakthrough blood pressure may be due to stress or anxiety. The remainder of her labs are unremarkable and she is discharged home. Return to the ER if symptoms change or worsen SUPERVISED APC VISIT, PHYSICIAN ATTESTATION: Based on the medical record the care appears appropriate. ? Medical Records Medical records reviewed: Yes I reviewed the patient's medical records Lab Data Lab results reviewed: Yes I reviewed the patient's lab results Labs: Lab Results 10/29/24 Range/Units 13:40 WBC 10.6 (4.0-11.0) 10^3/uL RBC 5.32 (4.20-5.40) 10^6/uL Hgb 14.2 (12.0-16.0) g/dL Hct 43.4 (36.0-48.0) % MCV 81.6 (81.0-99.0) fL MCH 26.7 (26.7-34.0) pg MCHC 32.7 (29.9-35.2) g/dL RDW 15.1 H (11.0-15.0) % Plt Count 341 (150-450) 10^3/uL MPV 8.7 L (9.5-13.5) fL Neut % (Auto) 62.3 (43.0-75.0) % Lymph % (Auto) 26.6 (20.5-60.0) % Treasure % (Auto) 7.5 (1.7-12.0) % Eos % (Auto) 2.3 (0.9-7.0) % Baso % (Auto) 0.8 (0.2-2.0) % Neut # (Auto) 6.6 H (1.4-6.5) 10^3/uL Lymph # (Auto) 2.8 (1.2-3.8) 10^3/uL Treasure # (Auto) 0.8 (0.3-0.8) 10^3/uL Eos # (Auto) 0.2 (0.0-0.7) 10^3/uL Baso # (Auto) 0.1 (0.0-0.1) 10^3/uL Abs Immat Gran (auto) 0.05 H (0.00-0.03) 10^3/uL Imm/Tot Granulo (auto) 0.5 (0.0-0.5) % PT 9.8 (9.0-11.6) sec INR <0.93 Sodium 140 (136-145) mmol/L Potassium 3.7 (3.5-5.1) mmol/L Chloride 103 (98-107) mmol/L Carbon Dioxide 29.1 (21.0-32.0) mmol/L Anion Gap 11.6 BUN 15.0 (7.0-18.0) mg/dL Creatinine 0.91 (0.55-1.02) mg/dL Est GFR ( Amer) >60 (>=60 mL/min/1.73m^2) Est GFR (Non-Af Amer) >60 (>=60 mL/min/1.73m^2) BUN/Creatinine Ratio 16.5 Glucose 96 (74-106) mg/dL Calcium 9.0 (8.5-10.1) mg/dL Total Bilirubin 0.4 (0.2-1.0) mg/dL AST 14 L (15-37) U/L ALT 27 (14-59) U/L Alkaline Phosphatase 103 (46-116) U/L Troponin I High Sens 4.2 (4.0-51.3) pg/mL Total Protein 7.4 (6.4-8.2) g/dL Albumin 3.5 (3.4-5.0) g/dL Globulin 3.9 g/dL Albumin/Globulin Ratio 0.9 TSH 3.843 H (0.358-3.740) uIU/mL Imaging Data Chest x-ray: Attestation: I have reviewed the pertinent imaging results. Radiologist's impression: ITS Impressions Chest X-Ray 10/29/24 13:28 IMPRESSION: 1. Normal chest. Electronically authenticated by: ALEA MENDOZA Date: 10/29/2024 13:59 ECG Data Attestation: I personally reviewed and interpreted this ECG as follows: (Normal sinus rhythm at a rate of [address] elevation or ectopy. EKG reviewed by attending physician) Discharge Plan Discharge Chief Complaint: Recheck/Abnormal Lab/Rx Clinical Impression: Elevated blood pressure reading Patient Disposition: Home, Self-Care Time of Disposition Decision: 14:20 Condition: Good Prescriptions / Home Meds: No Action levothyroxine 50 mcg tablet 50 mcg PO DAILY Print Language: German Instructions: Hypertension (ED) Referrals: Physician,Non-Staff, MD [Primary Care Provider] - 1 week
[2024-10-29 13:30] VITALS: PULSE 93
[2024-10-29 13:40] VITALS: PULSE 89
[2024-10-29 13:47] LABS: Basophils Absolute Auto 0.1 10^3/uL (0.0-0.1); Basophils Percent Auto 0.8 % (0.2-2.0); Eosinophils Absolute Auto 0.2 10^3/uL (0.0-0.7); Eosinophils Percent Auto 2.3 % (0.9-7.0); Hematocrit 43.4 % (36.0-48.0); Hemoglobin 14.2 g/dL (12.0-16.0); Immature Granulocytes Abs Auto 0.05 10^3/uL (0.00-0.03); Immature Granulocytes Pct Auto 0.5 % (0.0-0.5); Lymphocytes Absolute Auto 2.8 10^3/uL (1.2-3.8); Lymphocytes Percent Auto 26.6 % (20.5-60.0); Mean Corpuscular HGB Conc 32.7 g/dL (29.9-35.2); Mean Corpuscular Hemoglobin 26.7 pg (26.7-34.0); Mean Corpuscular Volume 81.6 fL (81.0-99.0); Mean Platelet Volume 8.7 fL (9.5-13.5); Monocytes Absolute Auto 0.8 10^3/uL (0.3-0.8); Monocytes Percent Auto 7.5 % (1.7-12.0); Neutrophils Absolute Auto 6.6 10^3/uL (1.4-6.5); Neutrophils Percent Auto 62.3 % (43.0-75.0); Platelet Count 341 10^3/uL (150-450); Red Blood Count 5.32 10^6/uL (4.20-5.40); Red Cell Distribution Width 15.1 % (11.0-15.0); White Blood Count 10.6 10^3/uL (4.0-11.0)
[2024-10-29 13:50] VITALS: PULSE 87
[2024-10-29 14:00] VITALS: PULSE 85
[2024-10-29 14:01] LABS: Prothrombin Time 9.8 sec (9.0-11.6)
[2024-10-29 14:02] LABS: INR <0.93
[2024-10-29 14:06] VITALS: BP 125/77; PULSE 84
[2024-10-29 14:16] LABS: Alanine Aminotransferase 27 U/L (14-59); Albumin Globulin Ratio 0.9; Albumin Level 3.5 g/dL (3.4-5.0); Alkaline Phosphatase 103 U/L (46-116); Anion Gap 11.6; Aspartate Amino Transferase 14 U/L (15-37); BUN Creatinine Ratio 16.5; Bilirubin Total 0.4 mg/dL (0.2-1.0); Carbon Dioxide 29.1 mmol/L (21.0-32.0); Chloride 103 mmol/L (98-107); Estimated GFR (African America >60 (>=60 mL/min/1.73m^2); Estimated GFR (Non-African Ame >60 (>=60 mL/min/1.73m^2); Globulin 3.9 g/dL; Glucose 96 mg/dL (74-106); Potassium 3.7 mmol/L (3.5-5.1); Sodium 140 mmol/L (136-145); Thyroid Stimulating Hormone 3.843 uIU/mL (0.358-3.740); Total Protein 7.4 g/dL (6.4-8.2); Troponin I High Sensitivity 4.2 pg/mL (4.0-51.3)
== END 2024-10-29 14:41 | disposition home or self-care (01) ==
PROVIDERS: Physician Assistant; Emergency Provider Emergency Medicine
DX: R03.0 Elevated blood-pressure reading, without diagnosis of hypertension (principal); Z98.51 Tubal ligation status; Z63.4 Disappearance and death of family member; R42 Dizziness and giddiness; R94.6 Abnormal results of thyroid function studies
CPT/HCPCS: 36415; 71045; 80053; 84443; 84484; 85025; 85610; 93005; 99285

== ENCOUNTER 2025-02-22 18:35 | Emergency (ER) | payer MEDICAID, SELFPAY ==
[2025-02-22 18:46] VITALS: BP 160/92; PULSE 78; TEMP 36.6; O2SAT 98; BMI 37.4
--- OUTSIDE RECORDS SUMMARY | 2025-02-22 18:48 | XMS_ITS | CCD ---
Author Organization [facility] Care Team Providers Care Heater Mechanic Name Role Phone Unavailable Primary Care Provider Unavailabl e CORNELL, JAMIL Attending Unavailable CORNELL, JAMIL Attending Unavailable ARCENIO, VIDA Attending Unavailable CORNELL, JAMIL Attending Unavailable ARCENIO, VIDA Attending Unavailable ARCENIO, VIDA Attending Unavailable CORNELL, JAMIL Attending Unavailable ARCENIO, VIDA Attending Unavailable CORNELL, JAMIL Attending Unavailable CORNELL, JAMIL Attending Unavailable CORNELL, JAMIL Attending Unavailable CORNELL, JAMIL Attending Unavailable Cornell, Jamil Attending Unavailable Cornell, Jamil Admitting Unavailable Allergies Allergy Classification Reported Allergen(s) Allergy Type Date of Onset Reaction(s) Facility (19 sources) Wound Dressing Adhesive Propensity to adverse reactions 4 Rash [facility] Medications Current Medications Medication Drug Class(es) Dates Sig (Normalized) Sig (Original) citalopram 20 mg oral tablet (2 sources) Serotonin Reuptake Inhibitor Start: 09-27-20 End: 09-27-20 25 take 1 tablet by mouth once daily citalopram (CeleXA) 20 MG tablet Indications: Post- depression (CMS/HCC) Take 1 tablet (20 mg) by mouth Daily 30 tablet 11 09/27/2024 09/27/2025 Active levothyroxine sodium 0.05 mg oral tablet (19 sources) l-Thyroxine Start: 07-03-20 End: 10-01-20 24 take 1 tablet by mouth before mealtime levothyroxine (Synthroid) 50 MCG tablet Indications: Hypothyroidism, unspecified type (CMS/HCC) Take 1 tablet (50 mcg) by mouth in the morning. Take before meals. 90 tablet 2 07/03/2024 Active 1 ml medroxyPROGESTERone acetate 150 mg/ml injection (2 sources) Progestin Start: 09-27-20 End: 12-26-19 medroxyPROGESTERone (Depo-Provera) 150 MG/ML injection Indications: Encounter for other contraceptive management Inject 1 mL (150 mg) into the shoulder, thigh, or buttocks every 3 (three) months 1 mL 09/27/2024 12/26/2024 Active mineral oil 0.14 mg/mg / petrolatum 0.719 mg/mg / phenylephrine hydrochloride 0.0025 mg/mg / shark liver oil 0.03 mg/mg rectal ointment (1 source) alpha-1 Adrenergic Agonist Start: 09-04-20 End: 09-27-20 apply 28.4 g rectal route twice daily as needed phenylephrine-shark liver oil-mineral oil-petrolatum (Preparation H) 0.25-3-14-71.9 % rectal ointment Indications: Hemorrhoids, unspecified hemorrhoid type Insert into the rectum 2 (two) times a day as needed for hemorrhoids for up to 10 days 28.4 g 09/04/2024 09/27/2024 Discontinued NIFEdipine 30 mg osmotic 24 hr extended release oral tablet (13 sources) Dihydropyridine Calcium Channel Katherin Start: 08-02-20 End: 08-02-20 take 1 tablet by mouth once daily NIFEdipine XL (Procardia XL) 30 MG 24 hr tablet Indications: H/O pre-eclampsia in prior , currently , Elevated blood pressure affecting , antepartum Take 1 tablet (30 mg) by mouth Daily Do not crush, chew, or split. 30 tablet 3 08/02/2024 08/02/2025 Active omeprazole 20 mg delayed release oral capsule (20 sources) Proton Pump Inhibitor Start: 04-04-20 End: 08-08-20 take 1 capsule by mouth once before mealtime omeprazole (PriLOSEC) [address] capsule Indications: Heartburn during in second trimester Take 1 capsule (20 mg) by mouth in the morning. Take before meals. Do not crush or chew.. 30 capsule 08/08/2024 08/08/2025 Active Completed/Discontinued Medications Medication Drug Class(es) Dates Sig (Normalized) Sig (Original) labetalol hydrochloride 100 mg oral tablet (7 sources) beta-Adrenergic Katherin Start: 07-17-2024 End: 07-17-2025 take 1 tablet by mouth in the morning labetalol (Normodyne) 100 MG tablet Indications: induced hypertension, antepartum , Elevated blood pressure affecting in third trimester, antepartum Take 1 tablet (100 mg) by mouth in the morning and 1 tablet (100 mg) before bedtime. 60 tablet 11 07/17/2024 08/02/2024 Discontinued (Formulary change) Problems Active Problems Problem Classification Problem Date Documented Da te Episodic/Chronic Hypertension complicating ; childbirth and the puerperium (4 sources) Elevated blood pressure; Translations: [Unspecified maternal hypertension, unspecified trimester] 08-02-2024 Chronic Miscellaneous mental health disorders (1 source) depression; Translations: [ depression] 09-27-2024 Episodic Other complications of (2 sources) History of pre-eclampsia; Translations: [Supervision of with other poor reproductive or obstetric history, unspecified trimester] 08-02-2024 Episodic Other complications of (2 sources) Heartburn; Translations: [Other specified related conditions, second trimester] 08-08-2024 Episodic Other and delivery including normal (6 sources) Third trimester ; Translations: [Encounter for supervision of normal , unspecified, third trimester] 08-22-2024 Episodic Residual codes; unclassified (2 sources) Gestation period, 33 weeks; Translations: [33 weeks gestation of ] 08-02-2024 Episodic Past or Other Problems Problem Classification Problem Date Documented Date Episodic/Chronic Contraceptive and procreative management (20 sources) Sterilization requested; Translations: [Encounter for sterilization] Onset: 05-07-2024 05-07-2024 Episodic Hypertension complicating ; childbirth and the puerperium (2 sources) -induced hypertension; Translations: [Gestational [-induced] hypertension without significant proteinuria, unspecified trimester] 07-17-2024 Episodic Other complications of (2 sources) Excessive growth affecting management of mother; Translations: [Maternal care for excessive growth, third trimester, not applicable or unspecified] 07-17-2024 Episodic Other skin disorders (19 sources) Eruption; Translations: [Rash and other nonspecific skin eruption] Onset: 06-28-2024 06-28-2024 Episodic Results Test Name Value Interpretation Reference Range Facility ALL CBC WITH AUTO DIFFon BASOPHILS ABSOLUTE AUTO 0.1 [facility] Basophils/100 WBC (Bld) 1 % 0.2 - 2.0 % [facility] Eosinophils/100 WBC (Bld) 3.5 % 0.9 - 7.0 % [facility] Erythrocyte distribution width (RBC) [Ratio] 15.4 % High 11.0 - 15.0 % [facility] Hematocrit (Bld) [Volume fraction] 42.6 % 36.0 - 48.0 % [facility] Hemoglobin (Bld) [Mass/Vol] 13.7 g/dL 12.0 - 16.0 g/dL [facility] IMMATURE GRANULOCYTES ABS AUTO 0.04 High [facility] Immature granulocytes/100 WBC (Bld) 0.4 % 0.0 - 0.5 % [facility] Interpretation and review of laboratory results Abnormal [facility] LYMPHOC[facility]TES ABSOLUTE AUTO 2.6 [facility] Lymphocytes/100 WBC (Bld) 27.3 % 20.5 - 60.0 % [facility] MCH (RBC) [Entitic mass] 26.5 pg Low 26.7 - 34.0 pg [facility] MCHC (RBC) [Mass/Vol] 32.2 g/dL 29.9 - 35.2 g/dL [facility] MCV (RBC) [Entitic vol] 82.4 fL 81.0 - 99.0 fL [facility] MONOCYTES ABSOLUTE AUTO 0.7 [facility] Monocytes/100 WBC (Bld) 6.7 % 1.7 - 12.0 % [facility] NEUTROPHILS ABSOLUTE AUTO 5.9 [facility] Neutrophils/100 WBC (Bld) 61.1 % 43.0 - 75.0 % [facility] Platelet mean volume (Bld) [Entitic vol] 8.6 fL Low 9.5 - 13.5 fL [facility] TBH EO # 0.3 [facility] TBH PLT 332 [facility] RBC 5.17 [facility] WBC 9.6 [facility] Ted 10-26-2024 L -- ---- Specimen: [id number] Received: 10/26/24 Status: RICHARD Sanchezreema Num: [id number] Spec Type: Surgical Subm Dr: Jamil Sarabia Tissues: A Fallopian Tube - Sterilization (BILAT FALLOPIAN TUBES) Procedures: HE/2, Gross/Micro L2 Comments: SPEC WAS RECEIVED NOT ON FORMALIN, I NOTIFIED BROWN AT [facility]. AD ---- Age/ Patient Sex Location Account Attending Physician ---- Lisbeth Salazar / LABELL [id number] Jamil Sarabia ---- SPEC NUM: [id number] RECD: 10/26/24 STATUS: JASMEETKori BOSWELL NUM: [id number] REMINGTON: 10/26/[address]: Jamil Sarabia ENTERED: 10/26/[address]: Jair[facility]Lab SPEC TYPE: Surgical DEPT: [facility] ENTERED BY: [id number] RECV BY: [id number] ORDERED: HE/2, Gross/Micro L2 COMMENTS: SPEC WAS RECEIVED NOT ON FORMALIN, I NOTIFIED BROWN AT [facility]. AD ORDERED: , Gross/Micro L2 COMMENTS: SPEC WAS RECEIVED NOT ON FORMALIN, I NOTIFIED BROWN AT [facility]. AD Pathological Diagnosis Bilateral fallopian tubes, bilateral salpingectomy: -Intact bilateral fimbriated fallopian tubes without significant histopathological changes, except 1?2 small paratubal cysts on each tube without atypia Clinical Information Request sterilization Gross Description Part A is received fresh and fixed in formalin labeled with the patients name, date of , and bilateral fallopian tube are bilateral, on oriented fallopian tubes with fimbriated distal ends, 7 x 0.7 cm, and 7.5 x 0.7 cm. The serosa is alfaro-purple, smooth and glistening. Serial sections reveal pinpoint lumen within each segment. Rn Post Partum sections are submitted. Cassettes: ---- Specimen: [id number] Received: 10/26/24 Status: RICHARD Elbert Num: [id number] Spec Type: Surgical Subm Dr: Jamil Sarabia Tissues: A Fallopian Tube - Sterilization (BILAT FALLOPIAN TUBES) Procedures: HE/2, Gross/Micro L2 Comments: SPEC WAS RECEIVED NOT ON FORMALIN, I NOTIFIED BROWN AT [facility]. AD ---- Patient: MarieLisbeth [id number] (Continued) ---- Specimen: [id number] Received: 10/26/24 (Continued) Gross Description (Continued) Signed (signature on file) Lia Fields MD 10/29/24 1337 ---- Specimen: [id number] Received: 10/26/24 Status: RICHARD Elbert Num: [id number] Spec Type: Surgical Subm Dr: Jamil Sarabia Tissues: A Fallopian Tube - Sterilization (BILAT FALLOPIAN TUBES) Procedures: HE/2, Gross/Micro L2 Comments: SPEC WAS RECEIVED NOT ON FORMALIN, I NOTIFIED BROWN AT [facility]. AD ---- Patient: Lisbeth Salazar [id number] (Continued) ---- Specimen: [id number] Received: 10/26/24 (Continued) Gross Description (Continued) A1 Entirety of trisected fimbriated end and access representative cross-sections of shorter tube A2 Entirety of trisected fimbriated end and access representative cross-sections of longer tube (2, , [id number] A)JG Microscopic Description Microscopic examinations are performed supporting the above interpretation CPT Codes 19697 ---- ---- Specimen: [id number] Received: 10/26/24 Status: RICHARD Boswell Num: [id number] Spec Type: Surgical Subm Dr: Jamil Sarabia Tissues: A Fallopian Tube - Sterilization (BILAT FALLOPIAN TUBES) Procedures: HE/2, Gross/Micro L2 Comments: SPEC WAS RECEIVED NOT ON FORMALIN, I NOTIFIED BROWN AT [facility]. AD ---- Patient: Lisbeth Salazar [id number] (Continued) ---- Signed (signature on file) Lia Fields MD 10/29/24 1337 Normal [facility] ALL CBC WITH AUTO DIFFon BASOPHILS ABSOLUTE AUTO 0.1 [facility] Basophils/100 WBC (Bld) 0.8 % 0.2 - 2.0 % [facility] Eosinophils/100 WBC (Bld) 1.1 % 0.9 - 7.0 % [facility] Erythrocyte distribution width (RBC) [Ratio] 14.6 % 11.0 - 15.0 % [facility] Hematocrit (Bld) [Volume fraction] 34.8 % Low 36.0 - 48.0 % [facility] Hemoglobin (Bld) [Mass/Vol] 11.4 g/dL Low 12.0 - 16.0 g/dL [facility] IMMATURE GRANULOCYTES ABS AUTO 0.06 High [facility] Immature granulocytes/100 WBC (Bld) 0.6 % High 0.0 - 0.5 % [facility] Interpretation and review of laboratory results Abnormal [facility] LYMPHOCYTES ABSOLUTE AUTO 1.8 [facility] Lymphocytes/100 WBC (Bld) 18.3 % Low 20.5 - 60.0 % [facility] MCH (RBC) [Entitic mass] 27.3 pg 26.7 - 34.0 pg [facility] MCHC (RBC) [Mass/Vol] 32.8 g/dL 29.9 - 35.2 g/dL [facility] MCV (RBC) [Entitic vol] 83.3 fL 81.0 - 99.0 fL [facility] MONOCYTES ABSOLUTE AUTO 0.8 [facility] Monocytes/100 WBC (Bld) 7.5 % 1.7 - 12.0 % [facility] NEUTROPHILS ABSOLUTE AUTO 7.2 High [facility] Neutrophils/100 WBC (Bld) 71.7 % 43.0 - 75.0 % [facility] Platelet mean volume (Bld) [Entitic vol] 9.3 fL Low 9.5 - 13.5 fL [facility] TB EO # 0.1 [facility] [address]T [address] [facility] RBC 4.18 Low [facility] WBC 10.1 [facility] e [facility] CBC WITH PLATELET NO DI FFERENTIALon 08-31-2024 Erythrocyte distribution width (RBC) [Ratio] 14.6 % 11.0 - 15.0 % [facility] Hematocrit (Bld) [Volume fraction] 34.8 % Low 36.0 - 48.0 % [facility] e Hemoglobin (Bld) [Mass/Vol] 11.4 g/dL Low 12.0 - 16.0 g/dL [facility] Interpretation and review of laboratory results Abnormal [facility] MCH (RBC) [Entitic mass] 26.8 pg 26.7 - 34.0 pg [facility] MCHC (RBC) [Mass/Vol] 32.8 g/dL 29.9 - 35.2 g/dL [facility] MCV (RBC) [Entitic vol] 81.7 fL 81.0 - 99.0 fL [facility] Platelet mean volume (Bld) [Entitic vol] 9.7 fL 9.5 - 13.[address] [facility] [address]T [address] [facility] RBC 4.26 [facility] e [facility] WBC 9.3 [facility] Urinalysis macro (dipstick) panel (U)on 08-22-2024 Bilirubin, UA Negative Negative - 4(70) +++ mg/dL [facility] Blood, UA Negative Negative - 50 Gunnar/mcL [facility] Clarity, UA [facility] re Color, UA Yellow [facility] Glucose, UA Positive Negative - 1999(110) ++++ mg/dL [facility] Interpretation and review of laboratory results Abnormal [facility] Ketones, UA Negative Negative - 160(16) ++++ mg/dL [facility] Leukocytes, UA Trace Negative - 500+++ Sanju/mcL [facility] Nitrite, UA Negative Negative - Positive [facility] pH, UA 6.0 5 - 9 [facility] e Protein, UA Trace Negative - 1999(20) ++++ mg/dL [facility] Spec Grav, UA 1.025 1 - 1.03 [facility] care Urobilinogen, UA 1.0 0.2 - 12 mg/dL [facility] Urinalysis macro (dipstick) panel (U)on 08-08-2024 Bilirubin, UA Positive Negative - (70) +++ mg/dL [facility] Comment on above: small Blood, UA Negative Negative - 50 Gunnar/mcL [facility] Healthcare Clarity, UA Clear [facility] re Color, UA Yellow [facility] Healthcar e Glucose, UA Positive Negative - 1999(110) ++++ mg/dL [facility] Comment on above: 1000 Interpretation and review of laboratory results Abnormal [facility] re Ketones, UA Positive Negative - 160(16) ++++ mg/dL [facility] Comment on above: trace Leukocytes, UA Negative Negative - 500+++ Sanju/mcL [facility] Nitrite, UA Negative Negative - Positive [facility] pH, UA 6.0 5 - 9 [facility] Protein, UA Positive Negative - 1999(20) ++++ mg/dL [facility] Comment on above: 30 Spec Grav, UA 1.030 1 - 1.03 [facility] Urobilinogen, UA 1.0 0.2 - 12 mg/dL [facility] UA (CLEAN/CATCH) CORPORATE SECRETARY/RADHA RO IF IND.on 08-07-2024 BILIRUBIN URINE SMALL Abnormal NE[facility]IVE [facility]INE Negative NEGATIVE [facility] re Clarity (U) SLIGHTLY CLOUDY Abnormal CLEAR [facility] Hea [facility]thcare Color (U) DK. YELLOW YELLOW [facility] Healthcar e GLUCOSE URINE UA 250 mg/dL Abnormal NEGATIVE [facility] Interpretation and review of laboratory results Abnormal [facility] Ketones Ql (U) 15 mg/dL Abnormal NEGATIVE [facility] hcare Leukocyte esterase Test strip Ql (U) TRACE Abnormal NEGATIVE [facility] Healthcar e NITRITE URINE Negative NEGATIVE [facility] Health care pH (U) 6.0 [pH] 5.0 - 9.0 [facility] Protein (U) [Mass/Vol] 30 mg/dL Abnormal NEG/TRACE [facility] SPECIFIC GRAVITY URINE >=1.030 Abnormal 1.005 - 1.025 [facility] URINE MICROSCOPIC INDICATED YES [facility] UROBILINOGEN URINE 1.0 EU/dL 0.2 - 1.0 EU/dL [facility] Health[facility] e Urinalysis macro (dipstick) panel (U)on 08-02-2024 Bilirubin, UA Positive Negative - 4(70) +++ mg/dL [facility] Comment on above: small Blood, UA Negative Negative - 50 Gunnar/mcL [facility] Clarity, UA [facility] re Color, UA Yellow [facility] Glucose, UA Positive Negative - 1999(110) ++++ mg/dL [facility] Comment on above: 500 Interpretation and review of laboratory results Abnormal [facility] Ketones, UA Positive Negative - 160(16) ++++ mg/dL [facility] Comment on above: trace Leukocytes, UA Negative Negative - 500+++ Sanju/mcL [facility] Nitrite, UA Negative Negative - Positive [facility] pH, UA 5.5 5 - 9 [facility] Protein, UA Negative Negative - 1999(20) ++++ mg/dL [facility] Spec Grav, UA 1.030 1 - 1.03 [facility] Urobilinogen, UA 0.2 0.2 - 12 mg/dL [facility] AMNISUREon 07-24-2024 [facility] AMNISURE Negative NEGATIVE [facility] are [facility] Health[facility] e ALL CBC WITH AUTO DIFFon BASOPHILS ABSOLUTE AUTO 0.1 [facility] Basophils/100 WBC (Bld) 0.7 % 0.2 - 2.0 % [facility] Eosinophils/100 WBC (Bld) 1.1 % 0.9 - 7.0 % [facility] Erythrocyte distribution width (RBC) [Ratio] 14.2 % 11.0 - 15.0 % [facility] Hematocrit (Bld) [Volume fraction] 33.8 % Low 36.0 - 48.0 % [facility] e Hemoglobin (Bld) [Mass/Vol] 11.3 g/dL Low 12.0 - 16.0 g/dL [facility] IMMATURE GRANULOCYTES ABS AUTO 0.11 High [facility] Immature granulocytes/100 WBC (Bld) 1.0 % High 0.0 - 0.5 % [facility] Interpretation and review of laboratory results Abnormal [facility] LYMPHOCYTES ABSOLUTE AUTO 1.9 [facility] Lymphocytes/100 WBC (Bld) 17.5 % Low 20.5 - 60.0 % [facility] MCH (RBC) [Entitic mass] 28.1 pg 26.7 - 34.0 pg [facility] MCHC (RBC) [Mass/Vol] 33.4 g/dL 29.9 - 35.2 g/dL [facility] MCV (RBC) [Entitic vol] 84.1 fL 81.0 - 99.0 fL [facility] MONOCYTES ABSOLUTE AUTO 0.9 High [facility] Monocytes/100 WBC (Bld) 8.7 % 1.7 - 12.0 % [facility] NEUTROPHILS ABSOLUTE AUTO 7.6 High [facility] Neutrophils/100 WBC (Bld) 71.0 % 43.0 - 75.0 % [facility] Platelet mean volume (Bld) [Entitic vol] 9.3 fL Low 9.5 - 13.5 fL [facility] TBH EO # 0.1 [facility] TB PLT [address] [facility] e TB RBC 4.02 Low [facility] TBH WBC 10.7 [facility] e Urinalysis macro (dipstick) panel (U)on 07-17-2024 Bilirubin, UA Negative Negative - 4(70) +++ mg/dL [facility] Blood, UA Negative Negative - 50 Gunnar/mcL [facility] Clarity, UA [facility] Color, UA Yellow [facility] e Glucose, UA Positive Negative - 1999(110) ++++ mg/dL [facility] Interpretation and review of laboratory results Abnormal [facility] Ketones, UA Negative Negative - 160(16) ++++ mg/dL [facility] Leukocytes, UA Positive Negative - 500+++ Sanju/mcL [facility] Nitrite, UA Negative Negative - Positive [facility] pH, UA 6.5 5 - 9 [facility] e Protein, UA Negative Negative - 1999(20) ++++ mg/dL [facility] Spec Grav, UA 1.020 1 - 1.03 [facility] Urobilinogen, UA 1.0 0.2 - 12 mg/dL [facility] Vital Signs Date Time Vital Sign Value Performing Clinician Faci lity 09-27-2024 08:59-0500 Diastolic blood pressure 68 mm[Hg] Jamil Cornell DO Work Phone: [facility] 09-27-2024 08:59-0500 Systolic blood pressure 120 mm[Hg] Jamil Cornell DO Work Phone: [facility] 08-22-2024 13:18-0400 Body weight 107.1 kg Jamil Cornell DO Work Phone: [facility] 08-22-2024 13:18-0400 Diastolic blood pressure 80 mm[Hg] Jamil Cornell DO Work Phone: [facility] 08-22-2024 13:18-0400 Systolic blood pressure 126 mm[Hg] Jamil Cornell DO Work Phone: [facility] 08-08-2024 13:27-0400 Body weight 106.71 kg Jamil Cornell DO Work Phone: [facility] 08-08-2024 13:27-0400 Diastolic blood pressure 84 mm[Hg] Jamil Cornell DO Work Phone: [facility] 08-08-2024 13:27-0400 Systolic blood pressure 128 mm[Hg] Jamil Cornell DO Work Phone: [facility] 08-02-2024 11:53-0400 Body weight 106.5 kg Jamil Cornell DO Work Phone: [facility] 08-02-2024 11:53-0400 Diastolic blood pressure 80 mm[Hg] Jamil Cornell DO Work Phone: [facility] 08-02-2024 11:53-0400 Systolic blood pressure 138 mm[Hg] Jamil Cornell DO Work Phone: [facility] 07-17-2024 13:30-0400 Body weight 106.59 kg Vida KELLY Work Phone: [facility] 07-17-2024 13:30-0400 Diastolic blood pressure 82 mm[Hg] Vida KELLY Work Phone: [facility] 07-17-2024 13:30-0400 Systolic blood pressure 138 mm[Hg] Vida Rg PA Work Phone: [facility] Healthcare Encounters Encounter Date Encounter Type Care Provider Facility Start: 10-26-2024 End: 10-26-2024 Clinisync Result Encounter Jamil Cornell DO Work Phone: [facility] External Department Unsolicited Start: 10-26-2024 End: 10-26-2024 Clinisync Result Encounter Jamil Cornell DO Work Phone: [facility] External Department Unsolicited Start: 10-26-2024 End: 10-26-2024 ambulatory Jamil Cornell Facility:[facility] Start: 09-27-2024 End: 09-27-2024 Bamboo flowsheet Jamil Cornell DO Work Phone: [facility] Start: 09-27-2024 End: 09-27-2024 Bamboo flowsheet Jamil Cornell DO Work Phone: [facility] Start: 09-27-2024 End: 09-27-2024 Office outpatient visit 15 minutes Jamil Cornell DO Work Phone: [facility] Comment on above: Pre-op examination; Request for sterilization; Post- depression (CMS/HCC); Encounter for other contraceptive management Start: 09-27-2024 End: 09-27-2024 Preprocedural examination done Jamil Cornell DO Work Phone: [facility] Start: 09-27-2024 End: 09-27-2024 ambulatory JAMIL CORNELL Not Available Start: 09-01-2024 End: 09-01-2024 Clinisync Result Encounter Jamil Cornell DO Work Phone: [facility] External Department Unsolicited Start: 09-01-2024 End: 09-01-2024 Clinisync Result Encounter Jamil Cornell DO Work Phone: [facility] External Department Unsolicited Start: 08-31-2024 End: 08-31-2024 [...] CORNELL Not Available Start: 08-08-2024 End: 08-08-2024 Bamboo flowsheet Jamil Cornell DO Work Phone: [facility] Start: 08-08-2024 End: 08-08-2024 Bamboo flowsheet Jamil Cornell DO Work Phone: [facility] Start: 08-08-2024 End: 08-08-2024 Office outpatient visit 15 minutes Jamil Cornell DO Work Phone: [facility] Comment on above: Third trimester preg alessandro; Heartburn during in second trimester Start: 08-08-2024 End: 08-08-2024 ambulatory JAMIL CORNELL Not Available Start: 08-07-2024 End: 08-07-2024 Clinisync Result Encounter Jamil Cornell DO Work Phone: [facility] Unsolicited Start: 08-07-2024 End: 08-07-2024 Clinisync Result Encounter Jamil Cornell DO Work Phone: [facility] Unsolicited Start: 08-02-2024 End: 08-02-2024 Bamboo flowsheet Jamil Cornell DO Work Phone: [facility] Start: 08-02-2024 End: 08-02-2024 Bamboo flowsheet Jamil Cornell DO Work Phone: [facility] Start: 08-02-2024 End: 08-02-2024 Office outpatient visit 15 minutes Jamil Cornell DO Work Phone: [facility] Comment on above: 33 weeks gestation o f ; H/O pre-eclampsia in prior , currently ; Elevated blood pressure affecting , antepartum Start: 08-02-2024 End: 08-02-2024 ambulatory JAMIL CORNELL Not Available Start: 07-24-2024 End: 07-24-2024 Clinisync Result Encounter Jamil Cornell DO Work Phone: [facility] External Department Unsolicited Start: 07-24-2024 End: 07-24-2024 Clinisync Result Encounter Jamil Cornell DO Work Phone: [facility] External Department Unsolicited Start: 07-19-2024 End: 07-19-2024 Clinisync Result Encounter Vida KELLY Work Phone: [facility] External Department Unsolicited Start: 07-19-2024 End: 07-19-2024 Clinisync Result Encounter Vida KELLY Work Phone: [facility] External Department Unsolicited Start: 07-17-2024 End: 07-17-2024 Bamboo flowsheet Vida KELLY Work Phone: [facility] Start: 07-17-2024 End: 07-17-2024 Bamboo flowsheet Vida KELLY Work Phone: [facility] Start: 07-17-2024 End: 07-17-2024 Office outpatient visit 15 minutes Vida KELLY Work Phone: [facility] Comment on above: Third trimester preg alessandro; induced hypertension, antepartum; Elevated blood pressure affecting in third trimester, antepartum; Excessive growth affecting management of in third trimester, single or unspecified fetus Start: 07-17-2024 End: 07-17-2024 ambulatory VIDA RG Not Available Start: 07-03-2024 End: 07-03-2024 ambulatory JAMIL CORNELL Not Available Start: 06-28-2024 End: 06-28-2024 ambulatory VIDA RG Not Available Start: 06-11-2024 End: 06-11-2024 ambulatory VIDA RG Not Available Start: 05-07-2024 End: 05-07-2024 ambulatory JAMIL CORNELL Not Available Start: 04-04-2024 End: 04-04-2024 ambulatory VIAD RG Not Available Start: 03-15-2024 End: 03-15-2024 ambulatory JAMIL CORNELL Not Available Start: 02-09-2024 End: 02-09-2024 ambulatory JAMIL CORNELL Not Available Start: 01-31-2024 End: 01-31-2024 ambulatory JAMIL CORNELL Not Available Procedures Date Procedure Procedure Detail Performing Clinician Start: 10-26-2024 ALL CBC WITH AUTO DIFF Jamil Cornell DO Work Phone: Start: 09-01-2024 ALL CBC WITH AUTO DIFF Jamil Cornell DO Work Phone: Start: 08-31-2024 [facility] CBC WITH PLATEL ET NO DIFFERENTIAL Jamil Cornell DO Work Phone: Start: 08-22-2024 Urnls dip stick/tabl et rgnt non-auto w/o micrscp Jamil Cornell DO Work Phone: Start: 08-08-2024 Urnls dip stick/tabl et rgnt non-auto w/o micrscp Jamil Cornell DO Work Phone: Start: 08-07-2024 [facility] UA (CLEAN/CATCH) CORPORATE SECRETARY/MICRO IF IND. Jamil Cornell DO Work Phone: Start: 08-02-2024 Urnls dip stick/tabl et rgnt non-auto w/o micrscp Jamil Cornell DO Work Phone: Start: 07-24-2024 AMNISURE Jamil Fazi o DO Work Phone: Start: 07-19-2024 ALL CBC WITH AUTO DIFF Vida Rg PA Work Phone: Start: 07-17-2024 Urnls dip stick/tabl et rgnt non-auto w/o micrscp Vida KELLY Work Phone: Plan of Treatment Date Care Activity Detail Author Start: 09-27-2024 End: 09-27-2024 Patient encounter procedure [facility] Comment on above: Arrived Start: 08-22-2024 End: 08-22-2025 Strep B DNA probe, amplification Strep B DNA probe, amplification Lab Routine Third trimester Expected: 08/22/2024 (Approximate), Expires: 08/22/2025 [facility] Work Phone: Comment on above: Expected: 08/22/2024 (Approximate), Expires: 08/22/2025 Start: 08-22-2024 End: 08-22-2024 Patient encounter procedure 08/22/2024 1:00 PM EDT Routine [facility] [address] [place] [id number] Jamil Sarabia, DO [address] [place], [place] [id number] [facility] Start: 08-08-2024 End: 08-08-2024 Patient encounter procedure [facility] Comment on above: Arrived Start: 08-02-2024 End: 08-02-2024 Patient encounter procedure [facility] Comment on above: Arrived Start: 08-02-2024 End: 08-02-2024 Professional / ancillary services management 08/02/2024 11:00 AM EDT Ancillary Procedure [facility] [address] [place] [address] [facility] Start: 07-17-2024 End: 07-17-2025 Alanine aminotransferase [Enzymatic activity/volume] in Serum or Plasma ALT Lab Routine induced hypertension, antepartum Expected: 07/17/2024 (Approximate), Expires: 07/17/2025 [facility] Comment on above: Expected: 07/17/2024 (Approximate), Expires: 07/17/2025 Start: 07-17-2024 End: 07-17-2025 Aspartate aminotransferase [Enzymatic activity/volume] in Serum or Plasma AST Lab Routine induced hypertension, antepartum Expected: 07/17/2024 (Approximate), Expires: 07/17/2025 [facility] Comment on above: Expected: 07/17/2024 (Approximate), Expires: 07/17/2025 Start: 07-17-2024 End: 07-17-2025 CBC W Auto Differential panel - Blood CBC and differential Lab Routine induced hypertension, antepartum Expected: 07/17/2024 (Approximate), Expires: 07/17/2025 [facility] Comment on above: Expected: 07/17/2024 (Approximate), Expires: 07/17/2025 Start: 07-17-2024 End: 07-17-2025 Creatinine [Mass/volume] in Serum or Plasma Creatinine Lab Routine induced hypertension, antepartum Expected: 07/17/2024 (Approximate), Expires: 07/17/2025 [facility] Work Phone: Comment on above: Expected: 07/17/2024 (Approximate), Expires: 07/17/2025 Start: 07-17-2024 End: 07-17-2025 Lactate dehydrogenase [Enzymatic activity/volume] in Serum or Plasma by Lactate to pyruvate reaction Lactate dehydrogenase Lab Routine induced hypertension, antepartum Expected: 07/17/2024, Expires: 07/17/2025 [facility] Comment on above: Expected: 07/17/2024 , Expires: 07/17/2025 Start: 07-17-2024 End: 07-17-2025 Protein, urine, 24 hour Protein, urine, 24 hour Lab Routine induced hypertension, antepartum Expected: 07/17/2024 (Approximate), Expires: 07/17/2025 [facility] Comment on above: Expected: 07/17/2024 (Approximate), Expires: 07/17/2025 Start: 07-17-2024 End: 07-17-2025 Pt and ptt Pt and ptt Lab Routine induced hypertension, antepartum Expected: 07/17/2024, Expires: 07/17/2025 [facility] Comment on above: Expected: 07/17/2024 , Expires: 07/17/2025 Start: 07-17-2024 End: 07-17-2025 Urate [Mass/volume] in Serum or Plasma Uric acid Lab Routine induced hypertension, antepartum Expected: 07/17/2024 (Approximate), Expires: 07/17/2025 [facility] Comment on above: Expected: 07/17/2024 (Approximate), Expires: 07/17/2025 Start: 07-17-2024 End: 07-17-2025 Urea nitrogen [Mass/volume] in Serum or Plasma BUN Lab Routine induced hypertension, antepartum Expected: 07/17/2024, Expires: 07/17/2025 [facility] Comment on above: Expected: 07/17/2024 , Expires: 07/17/2025 Start: 07-17-2024 End: 07-17-2024 Patient encounter procedure 07/17/2024 1:00 PM EDT Routine [facility] [address] [place] [id number] Vida Rg PA [address] [place] [address] Arrived [facility] Comment on above: Arrived Payers Date Payer Category Payer Self-pay 2023 Medicaid [id number] 2023 Medicaid [id number] 1996 Unknown [id number] 2.16.84 [id number] 1996 Unknown [id number] 2.16.84 0.1.805086.3.579.2.1258 1996 Unknown [id number] 2.16.84 0.1.319877.3.579.2.9 1996 Unknown [id number] 2.16.84 0.1.323892.3.579.2.9 1996 Unknown [id number] 2.16.84 0.1.570549.3.579.2.9 1996 Unknown [id number] 2.16.84 0.1.430812.3.579.2.9 1996 Unknown [id number] 2.16.84 0.1.103537.3.579.2.1259 1996 Unknown [id number] 2.16.84 0.1.166442.3.579.2.1259 1996 Unknown [id number] 2.16.84 0.1.683906.3.579.2.1259 1996 Unknown [id number] 2.16.84 0.1.101495.3.579.2.1259 1996 Unknown [id number] 2.16.84 0.1.761891.3.579.2.1259 1996 Unknown [id number] 2.16.84 0.1.812083.3.579.2.1259 1996 Unknown [id number] 2.16.84 0.1.482865.3.579.2.1259 Unknown [id number] 2.16.8 [id number] Social History Date Type Detail Facility Start: 07-03-2024 Tobacco smoking stat [facility] Never smoked tobacco [facility] Start: 07-03-2024 Tobacco use and exposure Smokeless t obacco non-user [facility] Start: 07-17-2024 End: 08-22-2024 Alcoholic beverage intake [facility]-drinker (finding) [facility] [...] on 10/26/[address] Sarabia at [facility]. MEDICATIONS Current Outpatient Medications Medication Instructions [...] nursing note reviewed. Exam conducted with a music industry internship present. Vitals: There is no height or [...] reviewed, and patient is to proceed to [facility] OR. Follow Up: Patient is to [...] nursing note reviewed. Exam conducted with a music industry internship present. Vitals: There is no height or [...] [facility] History of Present illness Narrative 08-08-2024 Leslie Tinsley LPN - 08/08/2024 1:30 PM EDT Note Date & Type Note Facility 08-08-2024 History of Presen t illness Narrative Reason [...] Problems Past Medical History: Diagnosis Date Hypertension ([facility]/HCC) HISTORY PAST MEDICAL HISTORY SOCIAL HISTORY Past Medical History: Diagnosis Date Hypertension ([facility]) Social History Tobacco Use Smoking status: Never [...] nursing note reviewed. Exam conducted with a music industry internship present. Vitals: There is no height or weight on file to calculate BMI. BP: 128/84 No LMP recorded. Patient is . ASSESSMENT & PLAN ICD-10-CM 1. Third trimester Z34.93 POCT urinalysis dipstick manually resulted Return OB: Patient presents today for a routine obstetrics appointment. Patient is currently 34w0d . Patient states she is doing well but has complaints of being tired due to current . Patient has verbalizes frequent movement. labor precautions was discussed/given and patient was instructed to perform kick counts three times a day. Orders Placed This Encounter Procedures POCT urinalysis dipstick manually resulted Follow Up: Patient is to return to office in 2 week for routine OB appointment. Documented by Leslie Tinsley LPN on behalf of: Jamil Sarabia DO documented in this encounter [facility] History of Present illness Narrative 08-02-2024 Venessa Leyva LPN - 08/02/2024 11:50 AM EDT Note Date & Type Note Facility 08-02-2024 History of Presen t illness Narrative Reason for Appointment: Patient ID: Lisbeth Salazar is a 28 y.o. female who presents for No chief complaint on file. Patient presents today for Return OB appointment. MEDICATIONS Current Outpatient Medications Medication Instructions labetalol (NORMODYNE) 100 mg, Oral, 2 times daily levothyroxine (SYNTHROID) 50 mcg, Oral, Daily before breakfast omeprazole (PRILOSEC) 20 mg, Oral, Daily before [...] SYSTEMS Review of Systems: Review of Systems All other systems reviewed and are negative. OBJECTIVE Objective: Physical Exam Constitutional: Appearance: Normal [...] nursing note reviewed. Exam conducted with a music industry internship present. Vitals: There is no height or weight on file to calculate BMI. BP: 138/80 No LMP recorded. Patient is . ASSESSMENT & PLAN ICD-10-CM 1. 33 weeks gestation of Z3A.33 POCT urinalysis dipstick manually resulted Patient presents today for a routine obstetrics appointment. Patient is currently 33w1d with a Estimated Date of Delivery: 09/19/24. Patient will have IOL either on 08/31/24 or 09/03/24. Patient is to discontinue Labetalol and Procardia 30mg Xl will be sent to [facility] in [place]. Patient to return to clinic in 2 weeks. Documented by Venessa Leyva LPN on behalf of: Jamil Sarabia DO documented in this encounter [facility] History of Present illness Narrative 07-17-2024 LETICIA Boone - 07/17/2024 1:00 PM EDT Note Date & Type Note Facility 07-17-2024 History of Presen t illness Narrative Reason for Appointment: Patient ID: Lisbeth Salazar is a 28 y.o. female who presents for Routine Visit Patient presents today for Return OB appointment. MEDICATIONS Current Outpatient Medications Medication Instructions labetalol (NORMODYNE) 100 mg, Oral, 2 times daily levothyroxine (SYNTHROID) 50 mcg, Oral, Daily before breakfast omeprazole (PRILOSEC) 20 mg, Oral, Daily before [...] Exam Constitutional: Appearance: Normal appearance. She is normal weight. HENT: Head: Normocephalic. Cardiovascular: Rate and Rhythm: Normal rate. Pulses: Normal pulses. Pulmonary: Effort: Pulmonary effort is normal. Breath sounds: Normal breath sounds. Abdominal: Palpations: Abdomen is soft. Musculoskeletal: General: Normal range of motion. Neurological: General: No focal deficit present. Mental Status: She is alert and oriented to person, place, and time. Psychiatric: Mood and Affect: Mood normal. Behavior: Behavior normal. Thought Content: Thought content normal. Judgment: Judgment normal. Vitals and nursing note reviewed. Vitals: There is no height or weight on file to calculate BMI. BP: 138/82 No LMP recorded. Patient is . ASSESSMENT & PLAN ICD-10-CM 1. Third trimester Z34.93 Urine dip 2. induced hypertension, antepartum O13.9 Creatinine Protein, urine, 24 hour Pt and ptt CBC and differential Uric acid Lactate dehydrogenase ALT AST BUN labetalol (Normodyne) 100 MG tablet Creatinine Protein, urine, 24 hour Pt and ptt CBC and differential Uric acid Lactate dehydrogenase AST BUN CANCELED: US biophysical profile w non stress test 3. Elevated blood pressure affecting in third trimester, antepartum O16.3 labetalol (Normodyne) 100 MG tablet CANCELED: US biophysical profile w non stress test 4. Excessive growth affecting management of in third trimester, single or unspecified fetus O36.63X0 Return OB: Patient presents today for a routine obstetrics appointment. Patient is currently 30w6d . Patient states she is doing well but has complaints of being tired due to current . Patient has verbalizes frequent movement. labor precautions was discussed/given and patient was instructed to perform kick counts three times a day. Patient states BP has been increasing. BP today is 138/82. We will order NST and BPP with US today ans well as labs and urine. Pt will start labetalol today 100mg bid Orders Placed This Encounter Procedures Creatinine Protein, urine, 24 hour Pt and ptt CBC and differential Uric acid Lactate dehydrogenase ALT AST BUN Urine dip Follow Up: Patient is to return to office in 2 week for routine OB appointment. Documented by LETICIA Boone on behalf of: LETICIA Boone documented in this encounter [facility] Evaluation note Note Date & Type Note Facility Evaluation note Diagnosis Third trimester state, incidental documented in this encounter [facility] Evaluation note Note Date & Type Note Facility Evaluation note Diagnosis Pre-op examination Request for sterilization Post- depression ([facility]) Mental disorders of mother, complicating , childbirth, or the puerperium, unspecified as to episode of care Encounter for other contraceptive management documented in this encounter [facility] Evaluation note Note Date & Type Note Facility Evaluation note Diagnosis 33 weeks gestation of H/O pre-eclampsia in prior , currently Elevated blood pressure affecting , antepartum documented in this encounter [facility] Evaluation note Note Date & Type Note Facility Evaluation note Diagnosis Third trimester state, incidental Heartburn during in second trimester documented in this encounter [facility] Evaluation note Note Date & Type Note Facility Evaluation note Diagnosis Third trimester state, incidental induced hypertension, antepartum Transient hypertension of , antepartum Elevated blood pressure affecting in third trimester, antepartum Excessive growth affecting management of in third trimester, single or unspecified fetus documented in this encounter [facility] Summary Purpose Family History No Family History Records FoundNo Family History Records Found Advance Directives No Advanced Directives Records FoundNo Advanced Directives Records Found Additional Source Comments Reason for Visit (unrecogniz ed section and content) Reason Comments Routine Visit Reason Comments Pre-op Visit Care INFORMATION SOURCE (unrecogn ized section and content) DATE CREATED AUTHOR 09/29/2024 [facility] EPIC DATE CREATED AUTHOR AUTHOR'S ORGANIZ ATION 11/01/2024 [facility] FOR RECORDS PERTAINING TO PATIENTS WHO ARE [...] PRIMARY CLINICAL RECORDS. [facility] [employer] [facility]. provides no warranty or guarantee of the accuracy or completeness of information in this document.
--- NOTE | 2025-02-22 18:54 | ED_ITS ---
Documented by User: Vida Brush 02/22/25 19:01 HPI HPI - General Adult General Chief complaint: Dental/Oral Stated complaint: TOOTHACHE Time Seen by Provider: 02/22/25 18:53 History of Present Illness HPI narrative: 29-year-old female presents here with chief complaint of dental pain. Patient complains of left posterior dental pain upper and lower jaw. No acute swelling. States she has had pain for the last 3 days. She did call a dentist is going to follow-up with them next week. Dentist office told her to come here to get antibiotics. No acute abscess noted Related Data Home Medications ?Medication ?Instructions ?Recorded ?Confirmed levothyroxine 50 mcg tablet 50 mcg PO DAILY 09/08/24 02/22/25 Previous Rx's ?Medication ?Instructions ?Recorded amoxicillin 500 mg capsule 500 mg PO BID 10 days #20 caps 02/22/25 ibuprofen 800 mg tablet 800 mg PO Q8H PRN pain 5 days #15 02/22/25 tabs Allergies Allergy/AdvReac Type Severity Reaction Status Date / Time adhesive Allergy Mild Rash Verified 02/22/25 18:46 Opioid HPI Opioid Management Most Recent Opioid Data: Last Pain Scale 3 10/26/24 07:05 10/26/24 Last MAR Pain Assessment 02/22/25 19:11 Ur Phencyclidine Scrn Negative (NEGATIVE) 08/31/24 05:00 08/21 12/14 Review of Systems ROS Narrative All Systems are negative except as noted/marked.All systems reviewed and otherwise negative PFSH PFS Medical History (Updated 02/22/25 @ 18:54 by Vida Brush) Social anxiety disorder ?F40.10 - Social phobia, unspecified (ICD-10) Panic attacks ?F41.0 - Panic disorder [episodic paroxysmal anxiety] (ICD-10) Anxiety ?F41.9 - Anxiety disorder, unspecified (ICD-10) Sleep apnea ?G47.30 - Sleep apnea, unspecified (ICD-10) Asthma ?J45.909 - Unspecified asthma, uncomplicated (ICD-10) Migraine ?G43.909 - Migraine, unspecified, not intractable, without status migrainosus (ICD-10) GERD (gastroesophageal reflux disease) ?K21.9 - Gastro-esophageal reflux disease without esophagitis (ICD-10) Hypertension ?I10 - Essential (primary) hypertension (ICD-10) Hypothyroidism ?E03.9 - Hypothyroidism, unspecified (ICD-10) 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 - depression (ICD-10) Request for sterilization ?Z30.2 - Encounter for sterilization (ICD-10) Surgical History (Updated 10/17/24 @ 10:38 by Preeti Carrasco NP) History of appendectomy ?Z90.49 - Acquired absence of other specified parts of digestive tract (ICD- 10) History of tonsillectomy ?Z90.89 - Acquired absence of other organs (ICD-10) Family History (Updated 10/17/24 @ 10:11 by Preeti Carrasco NP) Other Cancer Delayed recovery from anesthesia Family history of DVT Family history of diabetes mellitus Family history of hypertension Family history of seizures Family history of stroke Social History Within the past year, how often did you have a drink containing alcohol: monthly or less Smoking status: Never smoker Non-prescribed substance use: denies use Highest level of school completed/degree received: high school graduate Little interest or pleasure in doing things: not at all Feeling down, depressed, or hopeless: not at all Exam Narrative Exam Narrative: Nurses notes reviewed and patient is noted to be non-hypoxic. General: The patient is comfortable, alert and oriented x3, well appearing, non toxic in no apparent distress. Head: Atraumatic and normocephalic. Eyes: Normal conjunctiva, no exudates. ENT: The oropharynx is normal. No pharyngeal erythema, uvular edema, tonsillar exudates, asymmetry or trismus. Uvula is midline. Mouth is normal to inspection With the exception of a pain on percussion of the tooth # 16 and7 and evidence of dental caries. There is no evidence of facial asymmetry or abscess formation. Floor of the mouth is soft. No tenderness in the submental or submandibular space. No tongue elevation or deviation. The patient has no evidence of periapical abscess, gingivitis, ANUG or other acute pathology. Airway is patent. Neck: The neck demonstrates normal range of motion. No meningeals signs are present. No stridor. No masses or lymphandenopathy noted. Respiratory: No acute distress, lungs are clear to auscultation, no wheezing, rhonchi, or rales noted. No stridor or retractions are noted. Cardiovascular: Regular rate and rhythm Skin: The skin exam shows no evidence of rashes Neuro: Alert and oriented x4, normal speech Lymphatic: No cervical lymphadenopathy Constitutional Vital Signs, click to edit/add: Last Vital Signs Temp 97.8 F 02/22/25 18:46 Pulse 78 02/22/25 18:46 Resp 14 02/22/25 18:46 BP 160/92 H 02/22/25 18:46 Pulse Ox 98 02/22/25 18:46 O2 Del Method Room Air 02/22/25 18:46 Course Vital Signs Vital signs: Vital Signs Temperature 97.8 F 02/22/25 18:46 Pulse Rate 78 02/22/25 18:46 Respiratory Rate 14 02/22/25 18:46 Blood Pressure 160/92 H 02/22/25 18:46 Pulse Oximetry 98 02/22/25 18:46 Oxygen Delivery Method Room Air 02/22/25 18:46 Temperature 97.8 F 02/22/25 18:46 Pulse Rate 78 02/22/25 18:46 Respiratory Rate 14 02/22/25 18:46 Blood Pressure 160/92 H 02/22/25 18:46 Pulse Oximetry 98 02/22/25 18:46 Oxygen Delivery Method Room Air 02/22/25 18:46 Medical Decision Making MDM Narrative Medical decision making narrative: Patient presented here chief complaint of dental pain. She has had chronic dental caries and dental pain for several years but over the last 3 days she had increased pain to dentition #16 and#7 patient will be provided here with dental anesthesia and a prescription for ibuprofen and Motrin. Patient is going to follow-up with a dentist next week. No abscess appreciated. Differential Diagnosis Differential Diagnosis: Dental abscess, dental caries Medical Records Medical records reviewed: Yes I reviewed the patient's medical records Discharge Plan Discharge Chief Complaint: Dental/Oral Clinical Impression: Toothache Patient Disposition: Home, Self-Care Time of Disposition Decision: 18:54 Condition: Good Prescriptions / Home Meds: New amoxicillin 500 mg capsule 500 mg PO BID 10 Days Qty: 20 0RF ibuprofen 800 mg tablet 800 mg PO Q8H PRN (Reason: pain) 5 Days Qty: 15 0RF No Action levothyroxine 50 mcg tablet 50 mcg PO DAILY Print Language: Bur[place]ian Instructions: Toothache (ED) Referrals: [facility] [Primary Care Provider] - 1 week Discharge Date/Time: 02/22/25 19:22 Documented by User: Олег Jaquez MD 02/22/25 19:41 HPI HPI - General Adult General Chief complaint: Dental/Oral Stated complaint: TOOTHACHE Time Seen by Provider: 02/22/25 18:53 Related Data Home Medications ?Medication ?Instructions ?Recorded ?Confirmed levothyroxine 50 mcg tablet 50 mcg PO DAILY 09/08/24 02/22/25 Previous Rx's ?Medication ?Instructions ?Recorded amoxicillin 500 mg capsule 500 mg PO BID 10 days #20 caps 02/22/25 ibuprofen 800 mg tablet 800 mg PO Q8H PRN pain 5 days #15 02/22/25 tabs Allergies Allergy/AdvReac Type Severity Reaction Status Date / Time adhesive Allergy Mild Rash Verified 02/22/25 18:46 Opioid HPI Opioid Management Most Recent Opioid Data: Last Pain Scale 3 10/26/24 07:05 10/26/24 Last MAR Pain Assessment 02/22/25 19:11 Ur Phencyclidine Scrn Negative (NEGATIVE) 08/31/24 05:00 08/21 12/14 PFSH PFSH Medical History (Updated 02/22/25 @ 18:54 by Vida Brush) Social anxiety disorder ?F40.10 - Social phobia, unspecified (ICD-10) Panic attacks ?F41.0 - Panic disorder [episodic paroxysmal anxiety] (ICD-10) Anxiety ?F41.9 - Anxiety disorder, unspecified (ICD-10) Sleep apnea ?G47.30 - Sleep apnea, unspecified (ICD-10) Asthma ?J45.909 - Unspecified asthma, uncomplicated (ICD-10) Migraine ?G43.909 - Migraine, unspecified, not intractable, without status migrainosus (ICD-10) GERD (gastroesophageal reflux disease) ?K21.9 - Gastro-esophageal reflux disease without esophagitis (ICD-10) Hypertension ?I10 - Essential (primary) hypertension (ICD-10) Hypothyroidism ?E03.9 - Hypothyroidism, unspecified (ICD-10) 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 - depression (ICD-10) Request for sterilization ?Z30.2 - Encounter for sterilization (ICD-10) Surgical History (Updated 10/17/24 @ 10:38 by Preeti Carrasco NP) History of appendectomy ?Z90.49 - Acquired absence of other specified parts of digestive tract (ICD- 10) History of tonsillectomy ?Z90.89 - Acquired absence of other organs (ICD-10) Family History (Updated 10/17/24 @ 10:11 by Preeti Carrasco NP) Other Cancer Delayed recovery from anesthesia Family history of DVT Family history of diabetes mellitus Family history of hypertension Family history of seizures Family history of stroke Social History Within the past year, how often did you have a drink containing alcohol: monthly or less Smoking status: Never smoker Non-prescribed substance use: denies use Highest level of school completed/degree received: high school graduate Little interest or pleasure in doing things: not at all Feeling down, depressed, or hopeless: not at all Exam Constitutional Vital Signs, click to edit/add: Last Vital Signs Temp 97.8 F 02/22/25 18:46 Pulse 78 02/22/25 18:46 Resp 14 02/22/25 18:46 BP 160/92 H 02/22/25 18:46 Pulse Ox 98 02/22/25 18:46 O2 Del Method Room Air 02/22/25 18:46 Course Vital Signs Vital signs: Vital Signs Temperature 97.8 F 02/22/25 18:46 Pulse Rate 78 02/22/25 18:46 Respiratory Rate 14 02/22/25 18:46 Blood Pressure 160/92 H 02/22/25 18:46 Pulse Oximetry 98 02/22/25 18:46 Oxygen Delivery Method Room Air 02/22/25 18:46 Temperature 97.8 F 02/22/25 18:46 Pulse Rate 78 02/22/25 18:46 Respiratory Rate 14 02/22/25 18:46 Blood Pressure 160/92 H 02/22/25 18:46 Pulse Oximetry 98 02/22/25 18:46 Oxygen Delivery Method Room Air 04/04/25 18:46 Medical Decision Making MDM Narrative Medical decision making narrative: Patient presented here chief complaint of dental pain. She has had chronic dental caries and dental pain for several years but over the last 3 days she had increased pain to dentition #16 and#7 patient will be provided here with dental anesthesia and a prescription for ibuprofen and Motrin. Patient is going to follow-up with a dentist next week. No abscess appreciated. I, Dr Jaquez, have reviewed the above progress note and course of action in the ER; agree with the above. I have personally gone over history and physical, and discussed disposition and treatment plan with the PA. Discharge Plan Discharge Chief Complaint: Dental/Oral Clinical Impression: Toothache Patient Disposition: Home, Self-Care Time of Disposition Decision: 18:54 Condition: Good Prescriptions / Home Meds: New amoxicillin 500 mg capsule 500 mg PO BID 10 Days Qty: 20 0RF ibuprofen 800 mg tablet 800 mg PO Q8H PRN (Reason: pain) 5 Days Qty: 15 0RF No Action levothyroxine 50 mcg tablet 50 mcg PO DAILY Print Language: Bur[place]ian Instructions: Toothache (ED) Referrals: [facility] [Primary Care Provider] - 1 week Discharge Date/Time: 02/22/25 19:22
[2025-02-22] MEDS: IBUPROFEN 600 MG TABLET PO (19:11)
[2025-02-22] MEDS: BENZOCAINE 30 ML, lidocaine HCL 15 ML MM (19:12)
== END 2025-02-22 19:22 | disposition home or self-care (01) ==
PROVIDERS: Emergency Provider Emergency Medicine
DX: K08.89 Other specified disorders of teeth and supporting structures (principal); K02.9 Dental caries, unspecified; Z90.49 Acquired absence of other specified parts of digestive tract
CPT/HCPCS: 99283

== ENCOUNTER 2025-07-03 21:05 | Emergency (ER) | payer MEDICAID, SELFPAY ==
[2025-07-03 21:10] VITALS: BP 152/111; PULSE 108; TEMP 36.7; O2SAT 98; BMI 37.9
--- OUTSIDE RECORDS SUMMARY | 2025-07-03 21:12 | XMS_ITS | CCD ---
Author Organization [facility] Care Team Providers Care Racker Octave Board Name Role Phone Unavailable Primary Care Provider [...] (Bld) 1 % 0.2 - 2.0 % [facility] Eosinophils/100 WBC (Bld) 3.5 % 0.9 - 7.0 % [facility] Erythrocyte distribution width (RBC) [Ratio] 15.4 % High 11.0 - 15.0 % [facility] Hematocrit (Bld) [Volume fraction] 42.6 % 36.0 - 48.0 % [facility] Hemoglobin (Bld) [Mass/Vol] 13.7 g/dL 12.0 - 16.0 g/dL [facility] IMMATURE GRANULOCYTES ABS AUTO 0.04 High [facility] Immature granulocytes/100 WBC (Bld) 0.4 % 0.0 - 0.5 % [facility] Interpretation and review of laboratory results [facility]normal [facility] LYMPHOC[facility]OLUTE AUTO 2.6 [facility] Lymphocytes/100 WBC (Bld) 27.3 % 20.5 - 60.0 % [facility] MCH (RBC) [Entitic mass] 26.5 pg Low 26.7 - 34.0 pg [facility] MCHC (RBC) [Mass/Vol] 32.2 g/dL 29.9 - 35.2 g/dL [facility] MCV (RBC) [Entitic vol] 82.4 fL 81.0 - 99.0 fL [facility] MONOCYTES ABSOLUTE AUTO 0.7 [facility] Monocytes/100 WBC (Bld) 6.7 % 1.7 - 12.0 % [facility] NEUTROPHILS ABSOLUTE AUTO 5.9 [facility] Neutrophils/100 WBC (Bld) 61.1 % 43.0 - 75.0 % [facility] Platelet mean volume (Bld) [Entitic vol] 8.6 fL Low 9.5 - 13.5 fL [facility] TBH EO # 0.3 [facility] TBH PLT 332 [facility] RBC 5.17 [facility] WBC 9.6 [facility] Ted 10-26-2024 L -- ---- Specimen: [id number] Received: 10/26/24 Status: RICHARD Sanchezreema Num: [id number] Spec Type: Surgical Subm Dr: Jamil Sarabia Tissues: A Fallopian Tube - Sterilization (BILAT FALLOPIAN TUBES) Procedures: HE/2, Gross/Micro L2 Comments: SPEC WAS RECEIVED NOT ON FORMALIN, I NOTIFIED BROWN AT [facility]. AD ---- Age/ Patient Sex Location Account Attending Physician ---- Lisbeth Salazar / LABELL [id number] Jamil Sarabia ---- SPEC NUM: [id number] RECD: 10/26/24 STATUS: JASMEETKori BOSWELL NUM: [id number] REMINGTON: 10/26/[address]: Jamil Sarabia ENTERED: 10/26/[address]: [facility] SPEC TYPE: Surgical DEPT: [facility] ENTERED BY: [id number] RECV BY: [id number] ORDERED: HE/2, Gross/Micro L2 COMMENTS: SPEC WAS RECEIVED NOT ON FORMALIN, I NOTIFIED BROWN AT [facility]. AD ORDERED: , Gross/Micro L2 COMMENTS: SPEC WAS RECEIVED NOT ON FORMALIN, I NOTIFIED BROWN AT [facility]. AD Pathological Diagnosis Bilateral fallopian tubes, [...] sections reveal pinpoint lumen within each segment. Concrete Sculptor sections are submitted. Cassettes: ---- Specimen: [id number] Received: 10/26/24 Status: RICHARD Elbert Num: [id number] Spec Type: Surgical Subm Dr: Jamil Sarabia Tissues: A Fallopian Tube - Sterilization (BILAT FALLOPIAN TUBES) Procedures: HE/2, Gross/Micro L2 Comments: SPEC WAS RECEIVED NOT ON FORMALIN, I NOTIFIED BROWN AT [facility]. AD ---- Patient: MarieLisbeth [id number] (Continued) ---- Specimen: [id number] Received: 10/26/24 (Continued) Gross Description (Continued) Signed (signature on file) Lia Fields MD 10/29/24 1337 ---- Specimen: [id number] Received: 10/26/24 Status: RICHARD Elbert Num: [id number] Spec Type: Surgical Subm Dr: Jamil Sarabia Tissues: A Fallopian Tube - Sterilization (BILAT FALLOPIAN TUBES) Procedures: HE/2, Gross/Micro L2 Comments: SPEC WAS RECEIVED NOT ON FORMALIN, I NOTIFIED BROWN AT [facility]. AD ---- Patient: Lisbeth Salazar [id number] (Continued) ---- Specimen: [id number] Received: 10/26/24 (Continued) Gross Description (Continued) A1 Entirety of trisected fimbriated end and security representative cross-sections of shorter tube A2 Entirety of trisected fimbriated end and security representative cross-sections of longer tube (2, , [id number] A)JG Microscopic Description Microscopic examinations are performed supporting the above interpretation CPT Codes 21071 ---- ---- Specimen: [id number] Received: 10/26/24 Status: RICHARD Boswell Num: [id number] Spec Type: Surgical Subm Dr: Jamil Sarabia Tissues: A Fallopian Tube - Sterilization (BILAT FALLOPIAN TUBES) Procedures: HE/2, Gross/Micro L2 Comments: SPEC WAS RECEIVED NOT ON FORMALIN, I NOTIFIED BROWN AT [facility]. AD ---- Patient: Lisbeth Salazar [id number] (Continued) ---- Signed (signature on file) Lia Fields MD 10/29/24 1337 Normal [facility] ALL CBC WITH AUTO DIFFon BASOPHILS ABSOLUTE AUTO 0.1 [facility] Basophils/100 WBC (Bld) 0.8 % 0.2 - 2.0 % [facility] Eosinophils/100 WBC (Bld) 1.1 % 0.9 - 7.0 % [facility] Erythrocyte distribution width (RBC) [Ratio] 14.6 % 11.0 - 15.0 % [facility] Hematocrit (Bld) [Volume fraction] 34.8 % Low 36.0 - 48.0 % [facility] Hem[facility] (Bld) [Mass/Vol] 11.4 g/dL Low 12.0 - 16.0 g/dL [facility] IMMATURE GRANULOCYTES ABS AUTO 0.06 High [facility] Immature granulocytes/100 WBC (Bld) 0.6 % High 0.0 - 0.5 % [facility] Interpretation and review of laboratory results Abnormal [facility] LYMPHOCYTES ABSOLUTE AUTO 1.8 [facility] Lymphocytes/100 WBC (Bld) 18.3 % Low 20.5 - 60.0 % [facility] MCH (RBC) [Entitic mass] 27.3 pg 26.7 - 34.0 pg [facility] MCHC (RBC) [Mass/Vol] 32.8 g/dL 29.9 - 35.2 g/dL [facility] MCV (RBC) [Entitic vol] 83.3 fL 81.0 - 99.0 fL [facility] Mon[facility] WBC (Bld) 7.5 % 1.7 - 12.0 % [facility] NEUTROPHILS ABSOLUTE AUTO 7.2 High [facility] Neutrophils/100 WBC (Bld) 71.7 % 43.0 - 75.0 % [facility] Platelet mean volume (Bld) [Entitic vol] 9.3 fL Low 9.5 - 13.5 fL [facility] TB EO # 0.1 [facility] [address]T [address] [facility] RBC 4.18 Low [facility] e [facility] WBC 10.1 [facility] e [facility] CBC WITH PLATELET NO DI FFERENTIALon 08-31-2024 Erythrocyte distribution width (RBC) [Ratio] 14.6 % 11.0 - 15.0 % [facility] Hematocrit (Bld) [Volume fraction] 34.8 % Low 36.0 - 48.0 % [facility] e Hemoglobin (Bld) [Mass/Vol] 11.4 g/dL Low 12.0 - 16.0 g/dL [facility] Interpretation and review of laboratory results Abnormal [facility] MCH (RBC) [Entitic mass] 26.8 pg 26.7 - 34.0 pg [facility] MCHC (RBC) [Mass/Vol] 32.8 g/dL 29.9 - 35.2 g/dL [facility] MCV (RBC) [Entitic vol] 81.7 fL 81.0 - 99.0 fL [facility] Platelet mean volume (Bld) [Entitic vol] 9.7 fL 9.5 - 13.5 fL [facility] [address]T [address] [facility] RBC 4.26 [facility] e [facility] WBC 9.3 [facility] Urinalysis macro (dipstick) panel (U)on 08-22-2024 Bilirubin, UA Negative Negative - 4(70) +++ mg/dL [facility] Blood, UA Negative Negative - 50 Gunnar/mcL [facility] Clarity, UA Clear Located within [facility] re Color, UA Yellow [facility] Glucose, UA Positive Negative - 1999(110) ++++ mg/dL [facility] Interpretation and review of laboratory results Abnormal [facility] Ketones, UA Negative Negative - 160(16) ++++ mg/dL [facility] Leukocytes, UA Trace Negative - 500+++ Sanju/mcL [facility] Nitrite, UA Negative Negative - Positive [facility] pH, UA 6.0 5 - 9 [facility] e Protein, UA Trace Negative - 1999(20) ++++ mg/dL [facility] Spec Grav, UA 1.025 1 - 1.03 [facility] care Urobilinogen, UA 1.0 0.2 - 12 mg/dL [facility] Urinalysis macro (dipstick) panel (U)on 08-08-2024 Bilirubin, UA Positive Negative - (70) +++ mg/dL [facility] Comment on above: small Blood, UA Negative Negative - 50 Gunnar/mcL [facility] Healthcare Clarity, UA Clear [facility] Color, UA Yellow [facility] Health[facility] e Glucose, UA Positive Negative - 1999(110) ++++ mg/dL [facility] Comment on above: 1000 Interpretation and review of laboratory results Abnormal [facility] Health[facility] re Ketones, UA Positive Negative - 160(16) ++++ mg/dL [facility] Comment on above: trace Leukocytes, UA Negative Negative - 500+++ Sanju/mcL [facility] Nitrite, UA Negative Negative - Positive [facility] pH, UA 6.0 5 - 9 [facility] Health[facility] e Protein, UA Positive Negative - 1999(20) ++++ mg/dL [facility] Comment on above: 30 Spec Grav, UA 1.030 1 - 1.03 [facility] Urobilinogen, UA 1.0 0.2 - 12 mg/dL [facility] UA (CLEAN/CATCH) AUTHORIZER/RADHA RO IF IND.on 08-07-2024 BILIRUBIN URINE SMALL Ab[facility]INE Negative NEGATIVE [facility] re Clarity (U) SLIGHTLY CLOUDY Abnormal CLEAR [facility] Hea lthcare Color (U) DK. YELLOW YELLOW [facility] Health[facility] e GLUCOSE URINE UA 250 mg/dL Abnormal NEGATIVE [facility]a lthcare Interpretation and review of laboratory results Abnormal [facility] Ketones Ql (U) 15 mg/dL Abnormal NEGATIVE [facility] hcare Leukocyte esterase Test strip Ql (U) TRACE Abnormal NEGATIVE [facility] Health[facility] e NITRITE URINE Negative NEGATIVE [facility] Health care pH (U) 6.0 [pH] 5.0 - 9.0 [facility] Protein (U) [Mass/Vol] 30 mg/dL Abnormal NEG/TRACE [facility] SPECIFIC GRAVITY URINE >=1.030 Abnormal 1.005 - 1.025 [facility] URINE MICROSCOPIC INDICATED YES [facility] UROBILINOGEN URINE 1.0 EU/dL 0.2 - 1.0 EU/dL [facility] e Urinalysis macro (dipstick) panel (U)on 08-02-2024 Bilirubin, UA Positive Negative - 4(70) +++ mg/dL [facility] Comment on above: small Blood, UA Negative Negative - 50 Gunnar/mcL [facility] Clarity, UA Clear [facility]ated [facility] re Color, UA Yellow [facility] Glucose, UA Positive Negative - 1999(110) ++++ mg/dL [facility] Comment on above: 500 Interpretation and review of laboratory results Abnormal [facility] Ketones, UA Positive Negative - 160(16) ++++ mg/dL [facility] Comment on above: trace Leukocytes, UA Negative Negative - 500+++ Sanju/mcL [facility] Nitrite, UA Negative Negative - Positive [facility] pH, UA 5.5 5 - 9 [facility] Protein, UA Negative Negative - 1999(20) ++++ mg/dL [facility] Spec Grav, UA 1.030 1 - 1.03 [facility] Urobilinogen, UA 0.2 0.2 - 12 mg/dL [facility] AMNISUREon 07-24-2024 [facility] AMNISURE Negative NEGATIVE [facility] are [facility] ALL CBC WITH AUTO DIFFon BASOPHILS ABSOLUTE AUTO 0.1 [facility] Basophils/100 WBC (Bld) 0.7 % 0.2 - 2.0 % [facility] Eosinophils/100 WBC (Bld) 1.1 % 0.9 - 7.0 % [facility] Erythrocyte distribution width (RBC) [Ratio] 14.2 % 11.0 - 15.0 % [facility] Hematocrit (Bld) [Volume fraction] 33.8 % Low 36.0 - 48.0 % [facility] e Hemoglobin (Bld) [Mass/Vol] 11.3 g/dL Low 12.0 - 16.0 g/dL [facility] IMMATURE GRANULOCYTES ABS AUTO 0.11 High [facility] Immature granulocytes/100 WBC (Bld) 1.0 % High 0.0 - 0.5 % [facility] Interpretation and review of laboratory results Abnormal [facility] LYMPHOCYTES ABSOLUTE AUTO 1.9 [facility] Lymphocytes/100 WBC (Bld) 17.5 % Low 20.5 - 60.0 % [facility] MCH (RBC) [Entitic mass] 28.1 pg 26.7 - 34.0 pg [facility] MCHC (RBC) [Mass/Vol] 33.4 g/dL 29.9 - 35.2 g/dL [facility] MCV (RBC) [Entitic vol] 84.1 fL 81.0 - 99.0 fL [facility] MONOCYTES ABSOLUTE AUTO 0.9 High [facility] Monocytes/100 WBC (Bld) 8.7 % 1.7 - 12.0 % [facility] NEUTROPHILS ABSOLUTE AUTO 7.6 High [facility] Neutrophils/100 WBC (Bld) 71.0 % 43.0 - 75.0 % [facility] Platelet mean volume (Bld) [Entitic vol] 9.3 fL Low 9.5 - 13.5 fL [facility] TBH EO # 0.1 [facility] TB PLT [address] [facility] e TB RBC 4.02 Low [facility] TBH WBC 10.7 [facility] e Urinalysis macro (dipstick) panel (U)on 07-17-2024 Bilirubin, UA Negative Negative - 4(70) +++ mg/dL [facility] Blood, UA Negative Negative - 50 Gunnar/mcL [facility] Clarity, UA Clear [facility]ated [facility] re Color, UA Yellow [facility] e Glucose, UA Positive Negative - 1999(110) ++++ mg/dL [facility] Interpretation and review of laboratory results Abnormal Located within [facility] re Ketones, UA Negative Negative - 160(16) ++++ mg/dL [facility] Leukocytes, UA Positive Negative - 500+++ Sanju/mcL [facility] Nitrite, UA Negative Negative - Positive [facility] pH, UA 6.5 5 - 9 [facility] e Protein, UA Negative Negative - 1999(20) ++++ mg/dL [facility] Spec Grav, UA 1.020 1 - 1.03 [facility] Urobilinogen, UA 1.0 0.2 - 12 mg/dL [facility] Vital Signs Date Time Vital Sign Value Performing Clinician Faci lity 09-27-2024 08:59-0500 Diastolic blood pressure 68 mm[Hg] Jamil Cornell DO Work Phone: [facility] 09-27-2024 08:59-0500 Systolic blood pressure 120 mm[Hg] Jamil Cornell DO Work Phone: [facility] 08-22-2024 13:18-0400 Body weight 107.1 kg Jamil Cornell DO Work Phone: [facility] 08-22-2024 13:18-0400 Diastolic blood pressure 80 mm[Hg] Jamil Cornell DO Work Phone: [facility] 08-22-2024 13:18-0400 Systolic blood pressure 126 mm[Hg] Jamil Cornell DO Work Phone: [facility] 08-08-2024 13:27-0400 Body weight 106.71 kg Jamil Cornell DO Work Phone: [facility] 08-08-2024 13:27-0400 Diastolic blood pressure 84 mm[Hg] Jamil Cornell DO Work Phone: [facility] 08-08-2024 13:27-0400 Systolic blood pressure 128 mm[Hg] Jamil Cornell DO Work Phone: [facility] 08-02-2024 11:53-0400 Body weight 106.5 kg Jamil Cornell DO Work Phone: [facility] 08-02-2024 11:53-0400 Diastolic blood pressure 80 mm[Hg] Jamil Cornell DO Work Phone: [facility] 08-02-2024 11:53-0400 Systolic blood pressure 138 mm[Hg] Jamil Cornell DO Work Phone: [facility] 07-17-2024 13:30-0400 Body weight 106.59 kg Vida KELLY Work Phone: [facility] 07-17-2024 13:30-0400 Diastolic blood pressure 82 mm[Hg] Vida KELLY Work Phone: [facility] 07-17-2024 13:30-0400 Systolic blood pressure 138 mm[Hg] Vida Rg PA Work Phone: [facility] Encounters Encounter Date Encounter Type Care Provider Facility Start: 10-26-2024 End: 10-26-2024 Clinisync Result Encounter Jamil Cornell DO Work Phone: [facility] External Department Unsolicited Start: 10-26-2024 End: 10-26-2024 Clinisync Result Encounter Jamil Cornell DO Work Phone: [facility] External Department Unsolicited Start: 10-26-2024 End: 10-26-2024 ambulatory Jamil Cornell Facility:[facility] Start: 09-27-2024 End: 09-27-2024 Bamboo flowsheet Jamil Cornell DO Work Phone: [facility] Start: 09-27-2024 End: 09-27-2024 Bamboo flowsheet Jamil Cornell DO Work Phone: [facility] Start: 09-27-2024 End: 09-27-2024 Office outpatient visit 15 minutes Jamil Cornell DO Work Phone: [facility] Comment on above: Pre-op examination; Request for sterilization; Post- depression (CMS/HCC); Encounter for other contraceptive management Start: 09-27-2024 End: 09-27-2024 Preprocedural examination done Jamil Cornell DO Work Phone: [facility] Start: 09-27-2024 End: 09-27-2024 ambulatory JAMIL CORNELL Not Available Start: 09-01-2024 End: 09-01-2024 Clinisync Result Encounter Jamil Corenll DO Work Phone: [facility] External Department Unsolicited Start: 09-01-2024 End: 09-01-2024 Clinisync Result Encounter Jamil Cornell DO Work Phone: [facility] External Department Unsolicited Start: 08-31-2024 End: 08-31-2024 [...] 15 minutes Jamil Cornell DO Work Phone: [facility] Comment on above: 33 weeks gestation o f ; H/O pre-eclampsia in prior , currently ; Elevated blood pressure affecting , antepartum Start: 08-02-2024 End: 08-02-2024 ambulatory JAMIL CORNELL Not Available Start: 07-24-2024 End: 07-24-2024 Clinisync Result Encounter Jamil Cornell DO Work Phone: [facility] External Department Unsolicited Start: 07-24-2024 End: 07-24-2024 Clinisync Result Encounter Jamil Cornell DO Work Phone: [facility] External Department Unsolicited Start: 07-19-2024 End: 07-19-2024 Clinisync Result Encounter Vida KELLY Work Phone: [facility] External Department Unsolicited Start: 07-19-2024 End: 07-19-2024 Clinisync Result Encounter Vida KELLY Work Phone: [facility] External Department Unsolicited Start: 07-17-2024 End: 07-17-2024 Bamboo flowsheet Vida KELLY Work Phone: [facility] Start: 07-17-2024 End: 07-17-2024 Bamboo flowsheet Vida KELLY Work Phone: [facility] Start: 07-17-2024 End: 07-17-2024 Office outpatient visit 15 minutes Vida KELLY Work Phone: [facility] Comment on above: Third trimester [...] Not Available Start: 04-04-2024 End: 04-04-2024 ambulatory VIDA RG Not Available Start: 03-15-2024 End: 03-15-2024 [...] Work Phone: Start: 08-07-2024 TBH UA (CLEAN/CATCH) AUTHORIZER/MICRO IF IND. Jamil Cornell DO Work Phone: [...] Routine [facility] [address] [place] [id number] Jamil Sarabia, DO [address] [place], [place] [id number] [facility] Start: 08-08-2024 End: 08-08-2024 Patient encounter procedure [facility] Comment on above: Arrived Start: 08-02-2024 End: 08-02-2024 Patient encounter procedure [facility] Comment on above: Arrived Start: 08-02-2024 End: 08-02-2024 Professional / ancillary services management 08/02/2024 11:00 AM EDT Ancillary Procedure [facility] [address] [place] [address] [facility] Start: 07-17-2024 End: 07-17-2025 Alanine aminotransferase [Enzymatic activity/volume] in Serum or Plasma ALT Lab Routine induced hypertension, antepartum Expected: 07/17/2024 (Approximate), Expires: 07/17/2025 [facility] Comment on above: Expected: 07/17/2024 (Approximate), Expires: 07/17/2025 Start: 07-17-2024 End: 07-17-2025 Aspartate aminotransferase [Enzymatic activity/volume] in Serum or Plasma AST Lab Routine induced hypertension, antepartum Expected: 07/17/2024 (Approximate), Expires: 07/17/2025 [facility] Comment on above: Expected: 07/17/2024 (Approximate), Expires: 07/17/2025 Start: 07-17-2024 End: 07-17-2025 CBC W Auto Differential panel - Blood CBC and differential Lab Routine induced hypertension, antepartum Expected: 07/17/2024 (Approximate), Expires: 07/17/2025 [facility] Comment on above: Expected: 07/17/2024 (Approximate), Expires: 07/17/2025 Start: 07-17-2024 End: 07-17-2025 Creatinine [Mass/volume] in Serum or Plasma Creatinine Lab Routine induced hypertension, antepartum Expected: 07/17/2024 (Approximate), Expires: 07/17/2025 [facility] Work Phone: Comment on above: Expected: 07/17/2024 (Approximate), Expires: 07/17/2025 Start: 07-17-2024 End: 07-17-2025 Lactate dehydrogenase [Enzymatic activity/volume] in Serum or Plasma by Lactate to pyruvate reaction Lactate dehydrogenase Lab Routine induced hypertension, antepartum Expected: 07/17/2024, Expires: 07/17/2025 [facility] Comment on above: Expected: 07/17/2024 , Expires: 07/17/2025 Start: 07-17-2024 End: 07-17-2025 Protein, urine, 24 hour Protein, urine, 24 hour Lab Routine induced hypertension, antepartum Expected: 07/17/2024 (Approximate), Expires: 07/17/2025 [facility] Comment on above: Expected: 07/17/2024 (Approximate), Expires: 07/17/2025 Start: 07-17-2024 End: 07-17-2025 Pt and ptt Pt and ptt Lab Routine induced hypertension, antepartum Expected: 07/17/2024, Expires: 07/17/2025 [facility] Comment on above: Expected: 07/17/2024 , Expires: [...] PM EDT Routine [facility] [address] [id number] Vida Rg PA [address] [facility] [place] [address] Arrived [facility] Comment on above: Arrived Payers Date Payer Category Payer Self-pay 2023 Medicaid [id number] 2023 Medicaid [id number] 1996 Unknown [id number] 2.16.84 0.1.184612.3.579.2.9 1996 Unknown [id number] 2.16.84 0.1.313766.3.579.2.1258 1996 Unknown [id number] 2.16.84 0.1.819263.3.579.2.9 1996 Unknown [id number] 2.16.84 0.1.301543.3.579.2.9 1996 Unknown [id number] 2.16.84 0.1.840749.3.579.2.9 1996 Unknown [id number] 2.16.84 0.1.279378.3.579.2.9 1996 Unknown [id number] 2.16.84 0.1.293319.3.579.2.1259 1996 Unknown [id number] 2.16.84 0.1.903741.3.579.2.1259 1996 Unknown [id number] 2.16.84 0.1.019021.3.579.2.1259 1996 Unknown [id number] 2.16.84 0.1.192481.3.579.2.1259 1996 Unknown [id number] 2.16.84 0.1.328676.3.579.2.1259 1996 Unknown [id number] 2.16.84 0.1.857071.3.579.2.1259 1996 Unknown [id number] 2.16.84 0.1.471547.3.579.2.1259 Unknown [id number] 2.16.8 [id number] Social History Date Type Detail Facility Start: 07-03-2024 Tobacco smoking stat [facility] Never smoked tobacco [facility] Start: [...] on 10/26/[address] Sarabia at [facility]. MEDICATIONS Current Outpatient Medications Medication Instructions [...] nursing note reviewed. Exam conducted with a qualified craft worker electrician present. Vitals: There is no height or [...] reviewed, and patient is to proceed to [facility] OR. Follow Up: Patient is to [...] nursing note reviewed. Exam conducted with a qualified craft worker electrician present. Vitals: There is no height or [...] Problems Past Medical History: Diagnosis Date Hypertension ([facility]/HCC) HISTORY PAST MEDICAL HISTORY SOCIAL HISTORY Past Medical History: Diagnosis Date Hypertension ([facility]) Social History Tobacco Use Smoking status: [...] nursing note reviewed. Exam conducted with a qualified craft worker electrician present. Vitals: There is no height or [...] nursing note reviewed. Exam conducted with a qualified craft worker electrician present. Vitals: There is no height or [...] 30mg Xl will be sent to [facility] in [place]. Patient to return to clinic in 2 [...] Pre-op examination Request for sterilization Post- depression ([facility]) Mental disorders of mother, complicating , childbirth, or the puerperium, unspecified as to episode of care Encounter for other contraceptive management documented in this encounter [facility] Evaluation note Note Date & Type Note Facility Evaluation note Diagnosis 33 weeks gestation of H/O pre-eclampsia in prior , currently Elevated blood pressure affecting , antepartum documented in this encounter [facility] Evaluation note Note Date & Type Note Facility Evaluation note Diagnosis Third trimester state, incidental Heartburn during in second trimester documented in this encounter [facility] Evaluation note Note Date & Type Note Facility Evaluation note Diagnosis Third trimester state, incidental induced hypertension, antepartum Transient hypertension of , antepartum Elevated blood pressure affecting in third trimester, antepartum Excessive growth affecting management of in third trimester, single or unspecified fetus documented in this encounter [facility] Summary Purpose Family History No Family History Records FoundNo Family History Records Found Advance Directives No Advanced Directives Records FoundNo Advanced Directives Records Found Additional Source Comments Reason for Visit (unrecogniz ed section and content) Reason Comments Routine Visit Reason Comments Pre-op Visit Care INFORMATION SOURCE (unrecogn ized section and content) DATE CREATED AUTHOR 09/29/2024 [facility] EPIC DATE CREATED AUTHOR AUTHOR'S ORGANIZ ATION 11/01/2024 [facility] ysician [facility] FOR RECORDS PERTAINING TO PATIENTS [...] BE BASED ON THE PRIMARY CLINICAL RECORDS. [facility] [employer] [facility]. provides no warranty or guarantee of the accuracy or completeness of information in this document.
--- NOTE | 2025-07-03 21:48 | CT_ITS ---
The [address] [address] Patient Name: LINA BAHENA MRN: [id number] date: 1995 Sex: F Assigned Patient Location: ER Current Patient Location: ER Accession/Order Number: [id number] Exam Date: 07/03/2025 22:54 Report Date: 07/03/2025 22:58 At the request of: ANUSHKA MCDERMOTT MD Procedure: CT abdomen pelvis wo con CT Abdomen and Pelvis withoutcontrast TECHNIQUE: Axial imaging with 2-D reconstruction. . The CT exam was performed using one or more the following dose reduction techniques: Automated exposure control, adjustment of the MA and/or Kv according to patient size, or use of the iterative reconstruction technique. COMPARISON: None History: Bilateral flank pain LIMITATIONS: None LOWER THORAX Unremarkable LIVER: Unremarkable GALLBLADDER: No gallbladder abnormality identified. BILE DUCTS: No dilatation SPLEEN: Unremarkable PANCREAS: Unremarkable ADRENAL GLANDS: Unremarkable KIDNEYS:Unremarkable AORTA: No abdominal aortic aneurysm identified. RETROPERITONEUM: No significant retroperitoneal abnormalities identified. MESENTERY:Unremarkable STOMACH:Unremarkable SMALL BOWEL: The small bowel loops are nondistended. APPENDIX: The appendix is normal. COLON: Mild constipation URINARY BLADDER: Urinary bladder is unremarkable. REPRODUCTIVE SYSTEM: Reproductive structures are unremarkable. PNEUMOPERITONEUM: None PERITONEAL FLUID:None BONY STRUCTURES: Unremarkable ABDOMINAL WALL: Unremarkable CT/CT abdomen pelvis wo con IMPRESSION: No acute findings. No obstructive uropathy. No nephrolithiasis. Mild constipation Impression dictated by: Олег Leon M.D. 07/03/2025 10:58 PM Dictation Location: [employer] Electronically authenticated by: [id number] Y Date: 07/03/2025 22:58
--- NOTE | 2025-07-03 21:51 | ED.GENADUL1 ---
HPI HPI - General Adult General Chief complaint: Abdominal Pain Stated complaint: BILATERAL FLANK PAIN, MID ABDOMINAL PAIN Time Seen by Provider: 07/03/25 21:40 Source: patient Mode of arrival: walk-in History of Present Illness HPI narrative: patient states she felt like she had a kidney infection 2 days ago. states she spoke to tele doc and was prescribed antibiotic that she took. Now presents with increasing bilat CVA and flank pain. No fever but does have nausea. no dysuria Related Data Home Medications ?Medication ?Instructions ?Recorded ?Confirmed levothyroxine 50 mcg tablet 50 mcg PO DAILY 09/08/24 02/22/25 Allergies Allergy/AdvReac Type Severity Reaction Status Date / Time adhesive Allergy Mild Rash Verified 02/22/25 18:46 Opioid HPI Opioid Management Most Recent Opioid Data: Last Pain Scale 3 10/26/24, 07:05 Last MAR Pain Assessment Today, 22:01 Ur Phencyclidine Scrn, (NEGATIVE) Negative 08/31/24, 05:00 Review of Systems ROS Status of ROS 10 or more systems reviewed and unremarkable except as noted in history and below [facility] Medical History (Updated 07/03/25 @ 23:33 by Jeremiah Isaac MD) Social anxiety disorder ?F40.10 - Social phobia, unspecified (ICD-10) Panic attacks ?F41.0 - Panic disorder [episodic paroxysmal anxiety] (ICD-10) Anxiety ?F41.9 - Anxiety disorder, unspecified (ICD-10) Sleep apnea ?G47.30 - Sleep apnea, unspecified (ICD-10) Asthma ?J45.909 - Unspecified asthma, uncomplicated (ICD-10) Migraine ?G43.909 - Migraine, unspecified, not intractable, without status migrainosus (ICD-10) GERD (gastroesophageal reflux disease) ?K21.9 - Gastro-esophageal reflux disease without esophagitis (ICD-10) Hypertension ?I10 - Essential (primary) hypertension (ICD-10) Hypothyroidism ?E03.9 - Hypothyroidism, unspecified (ICD-10) 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 - depression (ICD-10) Request for sterilization ?Z30.2 - Encounter for sterilization (ICD-10) Surgical History (Updated 10/17/24 @ 10:38 by Preeti Carrasco NP) History of appendectomy ?Z90.49 - Acquired absence of other specified parts of digestive tract (ICD-10) History of tonsillectomy ?Z90.89 - Acquired absence of other organs (ICD-10) Family History (Updated 10/17/24 @ 10:11 by Preeti Carrasco NP) Other Cancer Delayed recovery from anesthesia Family history of DVT Family history of diabetes mellitus Family history of hypertension Family history of seizures Family history of stroke Social History Within the past year, how often did you have a drink containing alcohol: monthly or less Smoking status: Never smoker Non-prescribed substance use: denies use Highest level of school completed/degree received: high school graduate Little interest or pleasure in doing things: not at all Feeling down, depressed, or hopeless: not at all Exam Constitutional Vital Signs, click to edit/add: Last Vital Signs Temp 98.1 F 07/03/25 21:10 Pulse 108 H 07/03/25 21:10 Resp 18 07/03/25 21:10 BP 152/111 H 07/03/25 21:10 Pulse Ox 98 07/03/25 21:10 O2 Del Method Room Air 07/03/25 21:10 Common normals: no apparent distress, average body habitus, oriented x3, no limitations, healthy appearing, alert and well nourished [facility] Common normals: normocephalic and head/scalp atraumatic Eye Common normals: EOMs intact bilaterally Respiratory Common normals: normal respiratory effort, no retractions, no use of accessory muscles and clear to auscultation bilaterally Cardio Common normals: regular rate, regular rhythm, S1 normal heart sound and S2 normal heart sound GI Common normals: Normal to inspection, nondistended, normoactive bowel sounds present Other: mild supra pubic tenderness. bilat CVA tenderness L>R Extremity Common normals: normal to inspection and full ROM Neuro Common normals: oriented x3, CN's II-XII intact bilaterally and moves all extremities Psych Appearance: grossly normal Course Vital Signs Vital signs: Vital Signs Temperature 98.1 F 07/03/25 21:10 Pulse Rate 108 H 07/03/25 21:10 Respiratory Rate 18 07/03/25 21:10 Blood Pressure 152/111 H 07/03/25 21:10 Pulse Oximetry 98 07/03/25 21:10 Oxygen Delivery Method Room Air 07/03/25 21:10 Temperature 98.1 F 07/03/25 21:10 Pulse Rate 108 H 07/03/25 21:10 Respiratory Rate 18 07/03/25 21:10 Blood Pressure 152/111 H 07/03/25 21:10 Pulse Oximetry 98 07/03/25 21:10 Oxygen Delivery Method Room Air 07/03/25 21:10 Medical Decision Making MDM Narrative Medical decision making narrative: presents with acute bilat flank pain. Started on antibiotic for likely UTI. exam with bilat CVA tenderness. CT without acute findings . UA with pyuria and WBC mildly elevated. She is feeling better after intervention in the department of zofran, orphenadrine and toradol. Given dose of rocephin and then disharged with Toradol and Bactrim ds with working diagnosis of early pyelonephritis Lab Data Labs: Lab Results 07/03/25 07/03/25 Range/Units 21:15 21:50 WBC 12.4 H (4.0-11.0) 10^3/uL RBC 4.97 (4.20-5.40) 10^6/uL Hgb 14.1 (12.0-16.0) g/dL Hct 41.3 (36.0-48.0) % MCV 83.1 (81.0-99.0) fL MCH 28.4 (26.7-34.0) pg MCHC 34.1 (29.9-35.2) g/dL RDW 12.7 (11.0-15.0) % Plt Count 266 (150-450) 10^3/uL MPV 9.1 L (9.5-13.5) fL Neut % (Auto) 68.5 (43.0-75.0) % Lymph % (Auto) 21.0 (20.5-60.0) % [place] % (Auto) 8.7 (1.7-12.0) % Eos % (Auto) 1.0 (0.9-7.0) % Baso % (Auto) 0.5 (0.2-2.0) % Neut # (Auto) 8.5 H (1.4-6.5) 10^3/uL Lymph # (Auto) 2.6 (1.2-3.8) 10^3/uL [place] # (Auto) 1.1 H (0.3-0.8) 10^3/uL Eos # (Auto) 0.1 (0.0-0.7) 10^3/uL Baso # (Auto) 0.1 (0.0-0.1) 10^3/uL Abs Immat Gran (auto) 0.04 H (0.00-0.03) 10^3/uL Imm/Tot Granulo (auto) 0.3 (0.0-0.5) % Sodium 137 (136-145) mmol/L Potassium 3.5 (3.5-5.1) mmol/L Chloride 103 (98-107) mmol/L Carbon Dioxide 30.1 (21.0-32.0) mmol/L Anion Gap 7.4 BUN 13.0 (7.0-18.0) mg/dL Creatinine 0.73 (0.55-1.02) mg/dL Est GFR ( Amer) >60 (>=60 mL/min/1.73m^2) Est GFR (Non-Af Amer) >60 (>=60 mL/min/1.73m^2) BUN/Creatinine Ratio 17.8 Glucose 117 H (74-106) mg/dL Lactate 0.9 (0.4-2.0) mmol/L Calcium 9.4 (8.5-10.1) mg/dL Total Bilirubin 0.5 (0.2-1.0) mg/dL AST 11 L (15-37) U/L ALT 20 (14-59) U/L Alkaline Phosphatase 79 (46-116) U/L Total Protein 7.7 (6.4-8.2) g/dL Albumin 3.8 (3.4-5.0) g/dL Globulin 3.9 g/dL Albumin/Globulin Ratio 1.0 Lipase 37.0 (16.0-77.0) U/L Urine Color Latimer A (YELLOW) Urine Clarity Clear (CLEAR) Urine pH Color interference A (5.0-9.0) Ur Specific [place] 1.010 (1.005-1.025) Urine Protein Color interference A (NEG/TRACE) mg/dL Urine Glucose (UA) Color interference A (NEGATIVE) mg/dL Urine Ketones Color interference A (NEGATIVE) mg/dL Urine Occult Blood Color interference A (NEGATIVE) Urine Nitrite Color interference A (NEGATIVE) Urine Bilirubin Color interference A (NEGATIVE) Urine Urobilinogen Color interference A (0.2-1.0) EU/dL Ur Leukocyte Esterase Color interference A (NEGATIVE) Urine RBC 2-5 A (0-2) #/HPF Urine WBC 10-20 A (NONE SEEN) #/HPF Ur Squamous Epith Cells Moderate A (NONE/RARE) #/LPF Urine Crystals None seen (None Seen) #/HPF Urine Bacteria Trace A (NONE SEEN) #/HPF Urine Casts None seen (NONE SEEN) #/LPF Urine Mucus None seen (NONE SEEN) Urine Yeast Seen A (NONE SEEN) Ur Culture Indicated[place] [place] HCG, Qual Negative (NEGATIVE) Imaging Data Abdominal x-ray: Radiologist's impression: ITS Impressions Abdomen/Pelvis CT 07/03/25 21:48 IMPRESSION: No acute findings. No obstructive uropathy. No nephrolithiasis. Mild constipation Impression dictated by: Олег Leon M.D. 07/03/2025 10:58 PM Dictation Location: [employer] [id number] Electronically authenticated by: [id number] Y Date: 07/03/2025 22:58 Discharge Plan Discharge Chief Complaint: Abdominal Pain Clinical Impression: Pyelonephritis Patient Disposition: Home, Self-Care Prescriptions / Home Meds: No Action levothyroxine 50 mcg tablet 50 mcg PO DAILY Print Language: Yakut Instructions: Kidney Infection (ED) Additional Instructions: drink plenty of fluids and follow up with your doctor in the next 2-3 days for recheck Referrals: [facility] [Primary Care Provider, Unknown] - 1 week
[2025-07-03 21:59] LABS: Hematocrit 41.3 % (36.0-48.0); Hemoglobin 14.1 g/dL (12.0-16.0); Immature Granulocytes Abs Auto 0.04 10^3/uL (0.00-0.03); Immature Granulocytes Pct Auto 0.3 % (0.0-0.5); Lymphocytes Absolute Auto 2.6 10^3/uL (1.2-3.8); Mean Corpuscular HGB Conc 34.1 g/dL (29.9-35.2); Mean Corpuscular Hemoglobin 28.4 pg (26.7-34.0); Mean Corpuscular Volume 83.1 fL (81.0-99.0); Platelet Count 266 10^3/uL (150-450); Red Blood Count 4.97 10^6/uL (4.20-5.40); White Blood Count 12.4 10^3/uL (4.0-11.0)
[2025-07-03] MEDS: 0.9 % SODIUM CHLORIDE 1,000 ML 999 ML IV (22:00)
[2025-07-03 22:01] LABS: Glucose Urine UA COLOR INTERFERENCE mg/dL (NEGATIVE)
[2025-07-03] MEDS: KETOROLAC TROMETHAMINE 30 MG/ML VIAL IVP (22:01)
[2025-07-03] MEDS: ORPHENADRINE 60 MG/2 ML VIAL IV (22:01)
[2025-07-03 22:02] LABS: HCG Qualitative Urine* NEGATIVE (NEGATIVE)
[2025-07-03 22:08] LABS: Crystals Seen? None Seen #/HPF (None Seen)
[2025-07-03 22:09] LABS: Cast Seen? NONE SEEN #/LPF (NONE SEEN); Urine Culture Indicated YES-FRMC
[2025-07-03 22:16] LABS: Alanine Aminotransferase 20 U/L (14-59); Albumin Globulin Ratio 1.0; Albumin Level 3.8 g/dL (3.4-5.0); Alkaline Phosphatase 79 U/L (46-116); Anion Gap 7.4; Aspartate Amino Transferase 11 U/L (15-37); Blood Urea Nitrogen 13.0 mg/dL (7.0-18.0); Calcium 9.4 mg/dL (8.5-10.1); Carbon Dioxide 30.1 mmol/L (21.0-32.0); Chloride 103 mmol/L (98-107); Estimated GFR (African America >60 (>=60 mL/min/1.73m^2); Estimated GFR (Non-African Ame >60 (>=60 mL/min/1.73m^2); Globulin 3.9 g/dL; Glucose 117 mg/dL (74-106); Lipase 37.0 U/L (16.0-77.0); Potassium 3.5 mmol/L (3.5-5.1); Sodium 137 mmol/L (136-145); Total Protein 7.7 g/dL (6.4-8.2)
[2025-07-03 22:18] LABS: Lactate/Lactic Acid 0.9 mmol/L (0.4-2.0)
[2025-07-03 23:37] VITALS: BP 128/77; PULSE 74; O2SAT 100
[2025-07-03] MEDS: KETOROLAC TROMETHAMINE 10 MG TABLET PO (23:42)
== END 2025-07-03 23:49 | disposition home or self-care (01) ==
PROVIDERS: Emergency Provider Internal Medicine
DX: N10 Acute pyelonephritis (principal); R10.31 Right lower quadrant pain; R10.32 Left lower quadrant pain; R11.0 Nausea; K59.00 Constipation, unspecified
CPT/HCPCS: 36415; 74176; 80053; 81001; 83605; 83690; 84703; 85025; 87086; 96365; 96375; 99285; J0696; J1885; J2360; J2405